=== PATIENT | female | born 1960 | race Caucasian/White ===

== ENCOUNTER 2019-08-28 13:15 | Emergency (ER) | payer OTHER, SELFPAY ==
--- NOTE | ~2019-08-28 | CT_ITS ---
EXAMINATION: CT cervical spine wo con DATE: 08/28/2019 14:21 INDICATION: Neck pain for 3 weeks TECHNIQUE: Computed tomography (CT) of the cervical spine was performed without intravenous contrast. Automated exposure control and iterative reconstruction technique were employed. Exam dose: 140.78 mGy-cm total exam DLP. COMPARISON: None FINDINGS: There is straightening of the cervical spine. There is fusion of the posterior elements at C2-3 bilaterally. There is degenerative change at the apophyseal joints, particularly on the right at C4-5 and C5-6. There is minimal anterolisthesis at C4-5. Cervical interspaces are relatively preserved. There is mild degenerative disc disease at C4-5. No fracture or dislocation or locked facet is evident. No prevertebral soft tissue swelling. IMPRESSION: Straightening Posterior fusion at C2-3 Mild degenerative disease and minimal anterolisthesis at C4-5 Reviewed, dictated and finalized at [facility]. Reviewed, dictated and finalized at location A. NEER TECHNICIAN
[2019-08-28 13:17] VITALS: BP 149/79; PULSE 92; RESP 19; TEMP 36.3; O2SAT 100
[2019-08-28] MEDS: ACETAMINOPHEN 500 MG TABLET 1000 MG PO (14:34)
[2019-08-28 15:04] VITALS: BP 132/80; PULSE 65; RESP 16; O2SAT 96
--- NOTE | 2019-08-28 15:36 | ED_ITS ---
HPI - Neck Pain/Injury General Chief Complaint: Neck Pain/Injury Stated Complaint: Neck Pain Time Seen by Provider: 08/28/19 13:25 Related Data Home Medications Medication Instructions Recorded Confirmed albuterol sulfate [Ventolin HFA] 1 inh INHALATION QID PRN 08/28/19 aspirin [Adult Low Dose Aspirin] 08/28/19 duloxetine [Cymbalta] 60 mg PO DAILY 08/28/19 fluticasone propionate [Flonase 1 spray INTRANASAL BID 08/28/19 Allergy Relief] Allergies Allergy/AdvReac Type Severity Reaction Status Date / Time No Known Allergies Allergy Verified 08/28/19 13:30 Course Vital Signs Vital signs: Vital Signs Temperature 97.3 F L 08/28/19 13:17 Pulse Rate 92 08/28/19 13:17 Respiratory Rate 19 08/28/19 13:17 Blood Pressure 149/79 H 08/28/19 13:17 Pulse Oximetry 100 08/28/19 13:17 Temperature 97.3 F L 08/28/19 13:17 Pulse Rate 65 08/28/19 15:04 Respiratory Rate 16 08/28/19 15:04 Blood Pressure 132/80 08/28/19 15:04 Pulse Oximetry 96 08/28/19 15:04 Discharge Plan Discharge Clinical Impression: Acute neck pain Patient Disposition: Home, Self-Care Condition: Stable Instructions: Muscle Spasm (ED) Additional Instructions: Return to the emergency department if you experience fever, vision changes, vomiting, sudden onset numbness or weakness, or any other symptoms that are concerning to you Rest. Heat to the area. Take steroid taper as prescribed. Xdsv-pyo-atxaxat pain medication as needed. Muscle relaxer as needed. Do not drive if you are going to take this, as it can make you sleepy Follow up with your primary care doctor Prescriptions: New cyclobenzaprine 10 mg tablet 10 mg PO TID PRN (Reason: muscle spasm) Qty: 14 RF: 0 methylprednisolone [Medrol (Rajinder)] 4 mg tablets,dose pack See Rx Instructions .ROUTE .COMPLEX Qty: 21 RF: 0 No Action aspirin [Adult Low Dose Aspirin] 81 mg Tablet,Delayed Release (Dr/Ec) RF: 0 duloxetine [Cymbalta] 60 mg Capsule,Delayed Release(Dr/Ec) 60 mg PO DAILY RF: 0 fluticasone propionate [Flonase Allergy Relief] 50 mcg/actuation [place],Suspension 1 spray INTRANASAL BID RF: 0 albuterol sulfate [Ventolin HFA] 90 mcg/actuation Hfa Aerosol Inhaler 1 inh INHALATION QID PRN (Reason: Allergic Symptoms) RF: 0 Follow-up/Referrals: PHYSICIAN,COMPUTER AIDED DESIGN TECHNICIAN [Primary Care Provider] - Time of Disposition: 15:36
== END 2019-08-28 15:45 | disposition home or self-care (01) ==
PROVIDERS: Emergency Provider Emergency Medicine
DX: M54.2 Cervicalgia (principal); J45.909 Unspecified asthma, uncomplicated; J32.9 Chronic sinusitis, unspecified
CPT/HCPCS: 72125; 96372; 99284; A9270; J3360

== ENCOUNTER 2019-10-28 08:00 | Emergency (ER) | payer OTHER, SELFPAY ==
[2019-10-28] VITALS (10 sets, daily range): BP systolic 113–166; BP diastolic 75–105; PULSE 56–94; RESP 10–22; TEMP 36.3; O2SAT 98–100
--- NOTE | ~2019-10-28 | CT_ITS ---
EXAMINATION: CT abdomen pelvis w con EXAM DATE: 10/28/2019 09:05 INDICATION: Chronic abdominal pain, nausea and constipation. TECHNIQUE: Spiral CT of the abdomen and pelvis was performed following intravenous injection of 100 m L Omnipaque 350. Axial, coronal and sagittal images were reviewed. The dose-length product (DLP) fo r this examination was 293.67 mGy-cm. The exposure was tailored according to patient size (auto mA e xposure control), and iterative reconstruction (ASIR) was used as additional dose reduction technique . There is no prior study for comparison. FINDINGS: The liver, spleen, adrenal glands and pancreas are unremarkable. Patient has had cholecyst ectomy. Some biliary duct dilation which is common finding following cholecystectomy. Portal and sp lenic veins are patent. Kidneys enhance symmetrically. There is no hydronephrosis. The uterus is not identified and has likely been surgically resected. The bladder is unremarkable. There is no re troperitoneal or pelvic lymphadenopathy. The appendix is not positively visualized. There is no pericecal inflammatory change to suggest appe ndicitis. The stomach and small bowel are unremarkable. There is expected amount of colonic stool. There is mild scattered colonic diverticulosis. There is no adjacent inflammatory change to suggest diverticulitis. No free intraperitoneal gas. The heart is normal in size. There are no pericardi al or pleural effusions. The lung bases are unremarkable. There are no osteoblastic or osteolytic l esions identified. IMPRESSION: 1. Scattered colonic diverticulosis. Reviewed, dictated and finalized at location B.
--- NOTE | ~2019-10-28 | XR_ITS ---
EXAMINATION: XR chest 2V EXAM DATE: 10/28/2019 09:10 INDICATION: Mid to upper abdominal pain. TECHNIQUE: Frontal and lateral projections of the chest obtained and reviewed. There is no prior terry dy for comparison. FINDINGS: The lungs are clear. There are no pleural effusions. The cardiomediastinal silhouette is within normal limits. There is no pneumothorax suspected. The bones and soft tissues are unremarkab le. IMPRESSION: Normal chest x-ray exam. Reviewed, dictated and finalized at location B. IMPRESSION: Normal chest x-ray exam.
--- NOTE | 2019-10-28 08:24 | ECG_ITS ---
Measurements Intervals [place] Rate: 60 P: 8 NM: 144 QRS: 6 QRSD: 97 T: 55 QT: 449 QTc: 450 Interpretive Statements SINUS RHYTHM LOW QRS VOLTAGE IN LIMB LEADS BORDERLINE ST-T WAVE ABNORMALITY- LATERAL LEADS BASELINE WANDER- I, II, III, AVR, V6 BORDERLINE ECG Electronically Signed On 10-28-2019 9:18:14 CDT by Jah Light D.O.
--- NOTE | 2019-10-28 08:27 | ED.ABDPAIN ---
HPI - Abdominal Pain General Chief Complaint: Abdominal Pain Stated Complaint: abd pain Time Seen by Provider: 10/28/19 08:04 Source: patient Mode of arrival: ambulatory Limitations: no limitations History of Present Illness HPI narrative: Patient is a 59-year-old female who presents for evaluation of abdominal pain. Patient has had a 2-year history of intermittent abdominal pain, much worse over the past 2 weeks. Pain is located throughout the abdomen. Patient reports the pain is severe in nature, patient feels nauseated, no vomiting. No fever. She reports she has been very fatigued. She denies any weight loss. She reports some mild abdominal distention. She reports radiation of the pain to her back. No lower extremity pain or numbness. No flank pain. No cough or shortness of breath. Patient was recently seen by her primary care provider yesterday, ordered outpatient lab testing, but patient states she does not feel well enough to go through with that treatment plan. Patient was also set up to see a still pump operator today. She otherwise has been seen at [facility] where for her physicians, but states she did not want to be seen by people that she knows. Patient reports constipation, denies diarrhea. Related Data Home Medications Medication Instructions Recorded Confirmed albuterol sulfate [Ventolin HFA] 1 inh INHALATION QID PRN 08/28/19 aspirin [Adult Low Dose Aspirin] 08/28/19 duloxetine [Cymbalta] 60 mg PO DAILY 08/28/19 fluticasone propionate [Flonase 1 spray INTRANASAL BID 08/28/19 Allergy Relief] Allergies Allergy/AdvReac Type Severity Reaction Status Date / Time No Known Allergies Allergy Verified 08/28/19 13:30 Review of Systems Review of Systems: Narrative: CONSTITUTIONAL: Denies fever, chills, or sweats. EYES: Denies visual changes, redness, or discharge. ENT: Denies rhinorrhea, congestion, sore throat, or otalgia. CARDIOVASCULAR: Reports intermittent chest pain, denies current chest pain RESPIRATORY: Denies cough or dyspnea. GASTROINTESTINAL: Reports abdominal pain, nausea, denies diarrhea GENITOURINARY: Denies dysuria or hematuria. SKIN: Denies rash or itching. MUSCULOSKELETAL: Reports middle back pain, denies joint pain, or myalgia. NEUROLOGIC: Denies headache, numbness, or weakness. Reports fatigue. PSYCHIATRIC: Denies anxiety or depression PMFSH Social History Social History Gender identity (if verbalized by the patient): Female Exam Narrative: Exam Narrative: GENERAL: Awake, alert, conversant HEAD: Normocephalic, atraumatic. EYES: PERRLA and EOMI. ENT: Nares clear, no rhinorrhea or epistaxis. Mucous membranes moist. NECK: Supple. CHEST: No respiratory distress, breathing even and non labored HEART: Regular rate, sinus rhythm ABDOMEN:Non distended,pt with reproducible left lower quadrant abdomen, no rebound, no guarding EXTREMITIES: Normal range of motion. No edema. SKIN: Warm, dry, no rash. NEURO:No focal deficits. Alert and oriented x3. Finger to nose intact bilaterally. EOMs intact without nystagmus. No facial droop/asymmetry noted bilaterally. Grimace intact. Intact sensation in face. Hearing intact bilaterally. Shoulder shrug intact. Strength 5/5 bilateral upper extremities. Strength 5/5 bilateral lower extremities. Pt is ambulatory with a narrow based, steady gait, no ataxia. Psych: Anxious appearing, tearful Course Vital Signs Vital signs: Vital Signs Temperature 36.3 C L 10/28/19 08:13 Pulse Rate 83 10/28/19 08:13 Respiratory Rate 14 10/28/19 08:13 Blood Pressure 147/95 H 10/28/19 08:13 Pulse Oximetry 100 10/28/19 08:13 Temperature 36.3 C L 10/28/19 08:13 Pulse Rate 76 10/28/19 11:59 Respiratory Rate 18 10/28/19 11:59 Blood Pressure 166/89 H 10/28/19 11:59 Pulse Oximetry 99 10/28/19 11:59 MDM - Abdominal Pain MDM Narrative Medical decision making narrative: Patient presented for evaluation of chronic abdominal pain. At
[2019-10-28] MEDS: SODIUM CHLORIDE 0.9% IV 1,000 ML 999 ML IV CONT (08:42)
[2019-10-28] MEDS: MORPHINE SULFATE 4 MG/ML INJ IV PUSH (08:43)
[2019-10-28] MEDS: FAMOTIDINE 20 MG/2 ML VIAL IV PUSH (08:44)
[2019-10-28] MEDS: ONDANSETRON INJ 4 MG/2 ML VIAL IV PUSH (08:44)
[2019-10-28 08:48] LABS: Basophils Absolute Auto 0.1 K/mm3 (0.0-0.1); Basophils Percent Auto 1.6 % (0.2-1.2); Eosinophils Absolute Auto 0.4 K/mm3 (0-0.3); Eosinophils Percent Auto 5.4 % (0-4.4); Hemoglobin 12.1 g/dL (12.0-15.0); Immature Granulocyte Absolute 0.01 K/mm3 (0.00-0.031); Immature Granulocyte Percent A 0.2 % (0-0.5); Lymphocytes Absolute Auto 1.86 K/mm3 (0.9-3.2); Lymphocytes Percent Auto 28.9 % (18.3-44.2); Mean Corpuscular HGB Conc 32.7 g/dl (32-36); Mean Corpuscular Hemoglobin 30.1 pg (26-34); Mean Platelet Volume 10.1 fl (7.4-10.4); Monocytes Absolute Auto 0.6 K/mm3 (0.1-0.6); Monocytes Percent Auto 9.3 % (2.6-8.5); Neutrophils Absolute Auto 3.5 K/mm3 (1.3-6.7); Neutrophils Percent Auto 54.6 % (45.5-73.1); Platelet Count Result 274 k/mm3 (150-375); Red Blood Count 4.02 M/mm3 (4.2-5.4); Red Cell Distribution Width 13.2 % (11.5-14.5); White Blood Count 6.4 K/mm3 (4.5-10.0)
[2019-10-28 08:52] LABS: Add Urine Microscopic? NO; Appearance Urine Clear (Clear); Bacteria Urine Trace /hpf; Bilirubin Urine Negative (Negative); Blood Urine Negative (Negative); Color Urine Yellow (Yellow); Glucose Urine UA Negative (Negative); Ketones Urine Negative (Negative); Leukocyte Esterase Ur Negative LEU/UL (Negative); Mucus Urine Rare /lpf; Nitrate Urine Negative (Negative); Protein Urine Negative (Negative); RBC Urine 0-2 /hpf (0-2); Specific Grav Ur 1.017 (1.001-1.035); Squamous Epithelial Cell Urine Rare /hpf (Few); Urobilinogen Urine Negative mg/dL (<2.0); WBC Urine 0-3 /hpf
[2019-10-28 08:57] LABS: INR 0.9; Prothrombin Time 12.2 Seconds (11.1-14.7)
[2019-10-28 08:58] LABS: Partial Thromboplastin Time 26.6 SECONDS (22.3-36.8)
[2019-10-28 08:59] LABS: Estimated CRCL calculation 68 ml/min; Estimated Glomerular Filt Rate > 60
[2019-10-28 10:00] LABS: Troponin I < 0.012 ng/mL (0.000-0.034)
[2019-10-28 11:40] LABS: Alanine Aminotransferase 21 U/L (4-35); Albumin Level 4.1 g/dL (3.5-5.1); Alkaline Phosphatase 73 U/L (38-126); Aspartate Amino Transferase 27 U/L (14-36); Bilirubin,Total 1.8 mg/dL (0.2-1.3); Blood Urea Nitrogen 15 mg/dL (7-17); Calcium 8.6 mg/dL (8.4-10.2); Carbon Dioxide 27 mmol/L (22-30); Chloride 104 mmol/L (98-107); Estimated CRCL calculation 89 ml/min; Estimated Glomerular Filt Rate > 60; Glucose 97 mg/dL (65-105); Potassium 4.5 mmol/L (3.4-5.0); Sodium 138 mmol/L (137-145)
== END 2019-10-28 12:15 | disposition home or self-care (01) ==
PROVIDERS: Emergency Provider Emergency Medicine; PCP Internal Medicine
DX: R07.89 Other chest pain (principal); R10.13 Epigastric pain; R94.31 Abnormal electrocardiogram [ECG] [EKG]
CPT/HCPCS: 36415; 71046; 74177; 80053; 81003; 81025; 84443; 84484; 85025; 85610; 85730; 93005; 96361; 96374; 96375; 99284; J0131; J2270; J2405; J7030; Q9967

== ENCOUNTER 2020-07-26 13:25 | Outpatient (CLI) | payer MEDICARE, MEDICAID, SELFPAY ==
--- NOTE | ~2020-07-26 | CT_ITS ---
EXAMINATION: CTA brain DATE: 07/26/2020 14:27 INDICATION: Dizziness. Paresthesias. TECHNIQUE: Computed tomographic angiography (CTA) of the head was performed without and with 100 mL O mnipaque-350 intravenous contrast. Automated exposure control and iterative reconstruction technique were employed. The dose-length product was 967.02 mGy-cm. Maximum intensity projection 3D reconstruc tions were created. Volume-rendered 3D reconstructions of the intracranial arteries were created by isaura juarez technologist on a separate workstation. COMPARISON: None. FINDINGS: There is no intracranial hemorrhage, acute infarction, or abnormal intracranial mass lesion . The ventricles are normal in size. The mastoid air cells are normal. The orbits are normal. The par anasal sinuses are clear. The vertebral arteries are codominant. There is no significant stenosis of basilar artery or the posterior cerebral arteries. There is no significant stenosis of the intracrani al internal carotid arteries or anterior or middle cerebral arteries. Anterior communicating artery a nd the posterior communicating arteries are normal. There is no aneurysm. IMPRESSION: 1. Normal brain. No aneurysm or significant intracranial arterial stenosis. Reviewed, dictated and finalized at location A. ODUCTS SUPERVISOR
--- NOTE | ~2020-07-26 | US_ITS ---
EXAMINATION: US carotid duplex BI DATE: 07/26/2020 14:02 INDICATION: Dizziness. TECHNIQUE: Grayscale, color Doppler, and pulsed Doppler images of the cervical carotid arteries were obtained. The degree of vessel stenosis is placed in one of the following categories: normal, <50%, 5 0-69%, >=70% but less than near-occlusion, near-occlusion, or total occlusion. Note that percent sten osis relative to normal distal artery lumen diameter is indirectly measured from velocity measurement s as described by Orville, et al. Radiology 2003; 229:340-346. COMPARISON: None. FINDINGS: RIGHT: The right common carotid artery (CCA) peak systolic velocity (PSV) is 82 cm/s. The right internal car otid artery (ICA) PSV is 67 cm/s. The right ICA end-diastolic velocity (EDV) is 23 cm/s. The right IC A/CCA PSV ratio is 0.8. Grayscale and color Doppler images yield an estimate of <50% diameter reducti on from plaque in the ICA. There is antegrade flow in the right vertebral artery. LEFT: The left CCA PSV is 70 cm/s. The left ICA PSV is 72 cm/s. The left ICA EDV is 22 cm/s. The left ICA/C CA PSV ratio is 1.0. Grayscale and color Doppler images yield an estimate of <50% diameter reduction from plaque in the ICA. There is antegrade flow in the left vertebral artery. IMPRESSION: 1. <50% stenosis in the right internal carotid artery. 2. <50% stenosis in the left internal carotid artery. Reviewed, dictated and finalized at location A. THESIOLOGY PHYSICIAN ASSISTANT
== END 2020-07-26 13:26 | disposition home or self-care (01) ==
PROVIDERS: PCP Nurse Practitioner; Visit Provider Nurse Practitioner
DX: R42 Dizziness and giddiness (principal); R20.2 Paresthesia of skin; I65.23 Occlusion and stenosis of bilateral carotid arteries
CPT/HCPCS: 70496; 93880; Q9967

== ENCOUNTER → 2020-11-08 06:53 | Outpatient (CLI) | payer MEDICARE, MEDICAID, SELFPAY ==
--- NOTE | ~2020-11-08 | MR_ITS ---
EXAMINATION: MR lumbar spine wo con DATE: 11/08/2020 07:28 INDICATION: Low back pain. Lumbar radiculopathy. TECHNIQUE: Magnetic resonance imaging (MRI) of the lumbar spine was performed without intravenous con trast. Sequences included sagittal T2-weighted FSE, sagittal T2-weighted FS FSE, sagittal T1-weighted FSE, and axial T2-weighted FSE. COMPARISON: None FINDINGS: Bone alignment is normal. Vertebral body heights are normal. There is mildly decreased disc height at L2-L3, L3-L4, and L4-L5. The distal spinal cord signal intensity is normal. The conus medu llaris is at L1. The following disc levels are specifically discussed: L1-L2: The disc does not extend beyond the endplate margin. There is mild bilateral facet joint osteo arthritis. There is no neural foraminal stenosis. There is no central canal stenosis. L2-L3: The disc is bulging. There is severe right and moderate left facet joint osteoarthritis. There is mild bilateral neural foraminal stenosis. There is mild central canal stenosis. L3-L4: The disc is bulging. There is moderate bilateral facet joint osteoarthritis. There is mild pat ateral neural foraminal stenosis. There is mild central canal stenosis. L4-L5: The disc is bulging. There is severe right and moderate left facet joint osteoarthritis. There is moderate right and mild left neural foraminal stenosis. There is mild central canal stenosis. L5-S1: The disc is bulging. There is severe bilateral facet joint osteoarthritis. There is mild bilat eral neural foraminal stenosis. There is no central canal stenosis. IMPRESSION: 1. Mild lumbar spondylosis. Reviewed, dictated and finalized at location B. IMPRESSION: 1. Mild lumbar spondylosis.
== END ==
PROVIDERS: PCP Internal Medicine; Visit Provider Anesthesiology Pain Medicine
DX: M47.26 Other spondylosis with radiculopathy, lumbar region (principal)
CPT/HCPCS: 72148

== ENCOUNTER → 2021-07-09 03:15 | Outpatient (CLI) | payer OTHER, SELFPAY ==
[2021-07-09 19:58] LABS: SARS-CoV-2 RNA PCR Negative (Negative)
== END ==
PROVIDERS: PCP Internal Medicine; Visit Provider Internal Medicine Gastroenterology
DX: Z01.812 Encounter for preprocedural laboratory examination (principal); Z20.822 Contact with and (suspected) exposure to COVID-19
CPT/HCPCS: C9803; U0003; U0005

== ENCOUNTER 2021-07-12 01:56 | Day surgery (SDC) | payer OTHER, SELFPAY ==
[2021-06-28 14:58] VITALS: BMI 23.3
--- NOTE | 2021-07-11 20:18 | PM.HPGS ---
History of Present Illness History of Present Illness Consent: Risks, benefits, and alternatives have been discussed and questions answered. Patient agrees to proceed with procedure. Chief complaint: GERD, epigastric pain Narrative: Nova Tamez is a 60 year old female with epigastric pain . She states that a few years ago she had an EGD with dilatation for difficulty swallowing. This has not been an issue lately. She has been on medicine for reflux for 20 years or more than just recently went back on 1 after having been off of it for a while. Her issue now is that she gets discomfort in her upper abdomen, mostly in the left upper quadrant when she wears her back brace which fastens across the abdomen, or if she leans into her left side with her elbow. It it seems to states sore all the time but those to maneuvers exacerbate the discomfort. She denies vomiting. She is frequently nauseated Review of Systems Review of Systems: All systems reviewed & are unremarkable except as noted in HPI and below PMFSH Past Medical History Medical History Bronchitis HTN (hypertension) Surgical History Surgical History H/O: hysterectomy History of cholecystectomy Hx of tonsillectomy Social History Social History Smoking status: Never smoker Alcohol intake: former Substance use: former Substance use type: marijuana Living arrangements: alone Gender identity (if verbalized by the patient): Female Spiritual care concerns: No Meds Home Medications and Allergies Home Medications Medication Instructions Recorded Confirmed Type albuterol sulfate [Ventolin HFA] 1 inh INHALATION QID PRN 08/28/19 06/28/21 History fluticasone propionate [Flonase 1 spray INTRANASAL BID 08/28/19 06/28/21 History Allergy Relief] acetaminophen 500 mg PO Q6H PRN #30 cap 10/28/19 06/28/21 Rx dicyclomine 10 mg PO BID 10 Days #20 cap 10/28/19 06/28/21 Rx ondansetron HCl [Zofran] 4 mg PO Q8H #14 tablet 10/28/19 06/28/21 Rx Allergies Allergy/AdvReac Type Severity Reaction Status Date / Time No Known Allergies Allergy Verified 06/28/21 14:55 Exam Resp: Auscultation: clear to auscultation bilaterally Cardio: Rate: regular rate Rhythm: regular rhythm GI: GI Palp: Yes Soft to palpation and No Tenderness to palpation present (GI) Assessment and Plan Assessment and plan (1) Epigastric pain: Code(s): R10.13 - Epigastric pain Status: Acute Assessment and Plan: EGD with possible biopsy or dilatation or cautery.
[2021-07-12 09:52] VITALS: BP 149/76; PULSE 75; RESP 16; TEMP 36.2; O2SAT 100
[2021-07-12] MEDS: LACTATED RINGERS 1,000 ML 150 ML IV CONT (10:02)
--- NOTE | 2021-07-12 10:27 | P.PNAN_ITS ---
Anes - Initial Pre Proc Eval Procedure: Operation Date: 07/12/21 11:30 Proposed Procedures p Esophagogastroduodenoscopy - Milton Langford MD Date/Time: 07/12/21 10:27 Surgeon: Milton Langford MD Pre Op Diagnosis: GERD, epigastric pain Patient Data Age: 60 Gender: F Height: 20.12 m Weight: 63.63 kg Last Vital Signs Temp 36.2 C L 07/12/21 09:52 Pulse 75 07/12/21 09:52 Resp 16 07/12/21 09:52 BP 149/76 H 07/12/21 09:52 Pulse Ox 100 07/12/21 09:52 Allergies Allergy/AdvReac Type Severity Reaction Status Date / Time No Known Allergies Allergy Verified 06/28/21 14:55 Home Medications Medication Instructions Recorded Confirmed Type albuterol sulfate [Ventolin HFA] 1 inh INHALATION QID PRN 08/28/19 06/28/21 History fluticasone propionate [Flonase 1 spray INTRANASAL BID 08/28/19 06/28/21 History Allergy Relief] acetaminophen 500 mg PO Q6H PRN #30 cap 10/28/19 06/28/21 Rx dicyclomine 10 mg PO BID 10 Days #20 cap 10/28/19 06/28/21 Rx ondansetron HCl [Zofran] 4 mg PO Q8H #14 tablet 10/28/19 06/28/21 Rx Patient hx anesthesia problems: none Family hx anesthesia problems: none Results Review: All pre-operative results and documents have been reviewed as part of the pre-operative evaluation. [facility] Past Medical History Medical History (Updated 07/12/21 @ 10:27 by Yaniv Adame MD) Bronchitis HTN (hypertension) Surgical History Surgical History (Updated 07/12/21 @ 10:30 by Yaniv Adame MD) H/O: hysterectomy History of cholecystectomy Hx of tonsillectomy Social History Social History Smoking status: Never smoker Alcohol intake: former Substance use: former Substance use type: marijuana Living arrangements: alone Gender identity (if verbalized by the patient): Female Spiritual care concerns: No Anes - Eval Final PreProcedure Day of Procedure 07/12/21 10:27 Patient weight: normal Heart: regular rate and rhythm Lungs: clear to auscultation Airway: Mallampati scale class II Neurological: alert and oriented Last oral intake: >/= 8 hours ASA classification: II Emergent: no Anesthetic plan: proceed Anesthesia type and monitoring: general GIVS and standard monitoring Results Review: All pre-operative results and documents have been reviewed as part of the pre-operative evaluation. Informed Consent: The patient's anesthetic plan and its attendant risks and benefits were discussed with the patient/family/POA. Questions were solicited and answers provided to the satisfaction of the patient/family/POA.
[2021-07-12 11:02] VITALS: BP 125/76; PULSE 62; RESP 18; O2SAT 100
[2021-07-12 11:12] VITALS: BP 136/81; PULSE 60; RESP 12; O2SAT 100
[2021-07-12 11:22] VITALS: BP 150/84; PULSE 63; RESP 21; O2SAT 100
== END 2021-07-12 11:23 | disposition home or self-care (01) ==
PROVIDERS: PCP Internal Medicine; Visit Provider Internal Medicine Gastroenterology
PROC: 0DJ08ZZ Inspection of Upper Intestinal Tract, Via Natural or Artificial Opening Endoscopic (ICD-10-PCS; CPT 43235; principal; 2021-07-12 11:30)
DX: R10.13 Epigastric pain (principal); K21.9 Gastro-esophageal reflux disease without esophagitis; K29.70 Gastritis, unspecified, without bleeding; I10 Essential (primary) hypertension; Z90.49 Acquired absence of other specified parts of digestive tract
CPT/HCPCS: 43239; 87081; J2001; J2704; J7120

== ENCOUNTER 2021-10-23 13:10 | Outpatient (CLI) | payer OTHER, SELFPAY ==
--- NOTE | ~2021-10-23 | CT_ITS ---
EXAMINATION: CT chest abdomen pelvis w con EXAM DATE: 10/23/2021 13:53 INDICATION: Chest pain, left upper quadrant pain. TECHNIQUE: Spiral CT of the chest, abdomen and pelvis was performed following intravenous injection o f 100 mL Omnipaque 350. Axial, coronal and sagittal images chest, abdomen and pelvis were reviewed. Coronal maximum intensity pixel images of chest reviewed. The dose-length product (DLP) for this ex amination was 278.42 mGy-cm. The exposure was tailored according to patient size (auto mA exposure c ontrol), and iterative reconstruction (ASIR) was used as additional dose reduction technique. Compari son is made to prior examination from 10/28/2019. FINDINGS: CHEST: Some scattered punctate granulomata unchanged there are no suspicious pulmonary nodules. The re are no pleural or pericardial effusions. Tracheobronchial tree is patent. There is no mediasti nal, hilar or axillary lymphadenopathy. There is no pneumothorax. Heart normal in size. No evid ence of coronary arterial calcification. ABDOMEN PELVIS: The liver, spleen, adrenal glands and pancreas are unremarkable. There is mild bilia ry duct dilation which is common following cholecystectomy. Portal and splenic veins are patent. Ki dneys enhance symmetrically. There is no hydronephrosis. The uterus is not identified and has like ly been surgically resected. The bladder is unremarkable. There is no retroperitoneal or pelvic lym phadenopathy. The appendix is not positively visualized. There is no pericecal inflammatory change to suggest appe ndicitis. The stomach and small bowel are unremarkable. There is expected amount of colonic stool. There is mild scattered colonic diverticulosis. There is no adjacent inflammatory change to suggest diverticulitis. No free intraperitoneal gas. There are no osteoblastic or osteolytic lesions iden tified. There is no significant interval change. IMPRESSION: 1. Mild scattered colonic diverticulosis. 2. Mild biliary dilation likely from cholecystectomy status. 3. No acute chest, abdomen or pelvis findings. Reviewed, dictated and finalized at location A.
== END 2021-10-23 13:11 | disposition home or self-care (01) ==
PROVIDERS: PCP Internal Medicine; Visit Provider Nurse Practitioner
DX: R07.89 Other chest pain (principal); R00.2 Palpitations; R53.1 Weakness; R53.83 Other fatigue; R10.12 Left upper quadrant pain; R63.0 Anorexia; K57.30 Diverticulosis of large intestine without perforation or abscess without bleeding
CPT/HCPCS: 71260; 74177; Q9967

== ENCOUNTER 2023-06-23 16:16 | Outpatient (CLI) | payer OTHER, SELFPAY ==
--- NOTE | ~2023-06-23 | CT_ITS ---
EXAMINATION: CT abdomen pelvis w con DATE: 06/23/2023 16:52 INDICATION: Abdominal pain TECHNIQUE: Computed tomography (CT) of the abdomen and pelvis was performed with 100 mL Omnipaque-350 intravenous contrast. Automated exposure control and iterative reconstruction technique were employe d. The dose-length product was 319.53 mGy-cm. COMPARISON: 10/23/2021 FINDINGS: Lung bases are clear. Heart size is normal. No pericardial or pleural effusion. Gallbladder is not vi sualized and likely surgically absent. Focal hepatic steatosis at the ligamentum teres. No interval c hange in mild intra and extra hepatic biliary ductal dilation which is within normal limits post chol ecystectomy. Pancreas, spleen, bilateral adrenal glands and kidneys are normal. There are few diverti cula along the sigmoid colon without adjacent comparison to suggest diverticulitis. No abnormal bowel wall thickening or obstruction. The appendix is not visualized. No pericecal inflammatory change to suggest acute appendicitis. Bladder is normal. The uterus is not identified and has likely been surgi elina resected. No free intraperitoneal gas or fluid. No pathologically enlarged abdominal or pelvic lymphadenopathy. Mild lumbar spondylosis. IMPRESSION: 1. No acute intra-abdominal/pelvic process. 2. Mild sigmoid diverticulosis. 3. Stable mild intra and extra hepatic biliary ductal dilation which is within normal limits post cho lecystectomy. Reviewed, dictated and finalized at location A. Y NEEDLEWORKER IMPRESSION: 1. No acute intra-abdominal/pelvic process. 2. Mild sigmoid diverticulosis. 3. Stable mild intra and extra hepatic biliary ductal dilation which is within normal limits post cholecystectomy.
[2023-06-23 16:45] LABS: Estimated Glomerular Filt Rate > 60
== END 2023-06-23 16:17 | disposition home or self-care (01) ==
LOC: ANHIMG 16:20
PROVIDERS: PCP Internal Medicine; Visit Provider Nurse Practitioner
DX: R10.9 Unspecified abdominal pain (principal); K57.30 Diverticulosis of large intestine without perforation or abscess without bleeding
CPT/HCPCS: 74177; Q9967

== ENCOUNTER 2024-09-01 08:57 | Emergency (ER) | payer OTHER, SELFPAY ==
--- NOTE | ~2024-09-01 | CT_ITS ---
EXAMINATION: CT abdomen pelvis wo con DATE: 09/01/2024 10:20 INDICATION: Right lower quadrant abdominal pain and right flank pain. TECHNIQUE: Computed tomography (CT) of the abdomen and pelvis was performed without intravenous contr ast. Automated exposure control and iterative reconstruction technique were employed. The dose-length product was 294.80 mGy-cm. COMPARISON: 06/23/2023 FINDINGS: Lung bases are clear. Heart size is normal. Small pericardial effusion. Status post cholecystectomy. Liver, spleen, pancreas and bilateral adrenal glands are normal. 10 mm echogenic soft tissue density lesion at the lower pole the left kidney. Kidneys and ureters are otherwise normal with no urolithias is, hydroureteronephrosis or perinephric/ureteral stranding. There are few scattered clonic diverticu la without adjacent from trace stranding to suggest diverticulitis. No abnormal bowel wall thickening or obstruction. The appendix is not visualized. No pericecal inflammatory change to suggest acute ap pendicitis. Decompressed bladder is unremarkable. The uterus is not identified and has likely been garzon rgically resected. No free intraperitoneal gas or fluid. No pathologically enlarged abdominal or pelv ic lymphadenopathy. Mild lumbar spondylosis. IMPRESSION: 1. No acute intra-abdominal/pelvic process. 2. Small pericardial effusion. 3. 1 cm exophytic soft tissue density lesion at the lower pole the left kidney with low signal intens ity on prior T2-weighted imaging of the lower spine MR dated 11/08/2020 which favors a proteinaceous/h emorrhagic cyst although renal cell carcinoma. Could consider pre and postcontrast MRI for more defin itive determination. Reviewed, dictated and finalized at location A. ER GOODS INSPECTOR IMPRESSION: 1. No acute intra-abdominal/pelvic process. 2. Small pericardial effusion. 3. 1 cm exophytic soft tissue density lesion at the lower pole the left kidney with low signal intensity on prior T2-weighted imaging of the lower spine MR da danii 11/08/2020 which favors a proteinaceous/hemorrhagic cyst although renal cell carcinoma. Could consider pre and postcontrast MRI for more definitive determi nation.
--- OUTSIDE RECORDS SUMMARY | 2024-09-01 09:32 | XMS_ITS | Data Portability ---
Author Organization [facility] KYLEIris Address [address] [place] [address] Care Team Providers Care Signals Collector/Analyst Name Role Phone BIANCA VANEGAS Astronomy Teacher Assessment No assessment recorded. Plan of Treatment Reminders Order Date Submit Date Provider Last Modified By Organization Details Last Modified Time Details Appointments None recorded. Lab SARS CoV 2 RNA (COVID-19 ), QL, industrial waste inspector-PCR, respirato ry specimen 2019 [place] [facility], 2022 Margarito Galan, [address], [address], 0 18:16:47 Referral physical therapist referral - Please call patient to schedule appt. Thank you 2019 [facility], [address] [place] [address], [address], 1 12:09:37 Procedures nerve conductio n study/EMG , lower extremity (PROC) 2019 [facility] Scheduling, [address] [place], [address], 0 15:02:29 nerve conductio n study/EMG , upper extremity (PROC) 2019 020 [facility] Scheduling, [address] [place], [address], 0 15:02:36 nerve conductio n study/EMG , upper extremity (PROC) 2019 [place] [facility], [address], [address], [place], [address], 0 17:10:39 Surgeries None recorded. Imaging None recorded. Medication Orders Calcium 600 + D(3) 600 mg-10 mcg (400 unit) tablet 2019 [id number], [address], [place], [id number], 0 16:00:22 nortripty line 25 mg capsule 2019 [facility] #[id number], [address], [place], [id number], 0 13:09:16 omeprazol e 40 mg capsule,d elayed release 2019 [facility] #[id number], [address], [place], [id number], 0 13:40:24 nortripty line [address] [facility] #[id number], [address], [place], [id number], 0 15:53:49 Patient TargetsNo targets recorded. Patient Instructions Encounter Date Encounter Id Patient Instructions Last Modified By Organization Details Last Modified Time 03/01/2020 [id number] things to do i f you've been exposed to covid-19 [facility] Not available 03/01/2020 13:39:55 Reason for Referral Physical Therapist Referral for Chronic neck pain Please call patient to schedule appt. Thank you Referring Physician: Yakov Mondragon, Internal Medicine, Encounter Date: 04/24/2020 Results Created Date Observation Date Name Description Value Unit Range Abnormal Flag Note LastModifiedBy Organization Detail LastModifiedTime 02/07/20 20 02/07/2020 MAMMO , scree timothy, bilat eral No observ ation record ed. [facility] (Imaging) [address] [place], [address], 02/11/2020 12:04:18 02/08/20 20 02/08/2020 DEXA No observ ation record ed. [facility] ([facility]) [address] [place], [address], 02/15/2020 12:48:18 02/16/20 20 02/16/2020 CT, cervi ana maria spine , w/o contr ast No observ ation record ed. [facility] (Imaging) [address] [place], [address], 02/17/2020 10:30:30 05/17/20 20 05/17/2020 MRI, cervi ana maria spine , w/o contr ast No observ ation record ed. [facility] [address] [place], [address], 06/06/2020 18:17:44 Result Notes None recorded. Problems Name Problem SNOMED Code Status Onset Date Resolution Date Notes Provider Name and Address Organization Details Recorded Time Takotsubo cardiomyopathy 181678704 Active 2019 Jose Easton MD Attn: Paco coronado,[address] [facility], [place], [address], [facility] 0 12:47:48 Anxiety 71522857 Active 2019 Jose Easton MD Attn: Paco coronado,[address] [facility], [place], [address], [place] - [facility] 0 12:47:50 Acid reflux 265216749 Active 2019 Jose Easton MD Attn: Paco coronado,[address] [facility], [place], [address], [place] [facility] 0 13:24:53 History of cholecystectom y 612266232 Active 2019 Jose Easton MD Attn: Paco g,[address] [facility], [place], [address], [place] [facility] 0 13:25:20 History of total hysterectomy 343805591 Active 2019 Jose Easton MD Attn: Caneloveronica g,[address] [facility], [place], [address], [place] [facility] 0 13:25:21 Diverticulosis of colon without diverticulitis 466733275 Active 2019 Jose Easton MD Attn: Caneloveronica g,[address] [facility], [place], [address], [place] [facility] 0 14:52:48 Arthritis 6600508 Active 2019 Jose Ronda null, [place] [facility] 0 16:06:33 Irritable bowel syndrome 22419889 Active 2019 [place] Ronda [place] [facility] 0 16:29:39 Osteopenia 233546916 Active 2019 [place] Ronda [place] [facility] 0 18:31:10 Cervical radiculopathy 37491090 Active 2019 Frank Courtney LPN null, [place] - [facility] 0 14:58:56 Problem Notes None recorded. Procedures Surgical History Date Name Laterality Status Provider Name and Address Organization Details Recorded Time 07/21/19 19 Most Recent Mammogram completed BENITO Braxton - [facility] 01/25/2020 15:59:49 07/21/19 05 Date of Last Pap Smear completed BENITO Braxton - [facility] 01/25/2020 15:59:04 07/21/19 03 Total hysterectomy completed Tyler Lovelace MA [place] - [facility] 09/01/2019 11:52:47 07/21/18 99 Cholecystectomy completed BENITO Flowers - [facility] 09/01/2019 11:53:22 colposuspension completed Jose Easton MD Attn: Accounting, [address] [facility], [place], [address], [place] [facility] 10/27/2019 12:24:38 Imaging Results Imaging Date Name Status LastModified by Organiz ation Details LastModified Time 02/07/2020 MAMMO, screening, bilateral completed [facility] (Imaging) [address] [place], [address], 02/11/2020 12:04:18 02/08/2020 DEXA completed [facility] (Imaging) [address] [place], [address], 02/15/2020 12:48:18 02/16/2020 CT, cervical spine, w/o contrast completed [facility] (Imaging) [address] [place], [address], 02/17/2020 10:30:30 05/17/2020 MRI, cervical spine, w/o contrast completed [facility] [address] [place], [address], 06/06/2020 18:17:44 Procedure Notes None recorded. Medical Equipment None Reported. Allergies Allergen ID Allergen Name Allergen Category Reaction Reaction Severity Criticality Documentation Date Start Date Code Code System Note Provider Name and Address Organization Details Recorded Time 375072 gabapenti n medicatio n Not available Not available Not available 02/23/2020 30494 RxNorm Not Available Not Available Not Available Medications Name Sig Start Date Stop Date Status Note LastModified by Organization Details LastModified Time multivitami n tablet TAKE 1 TABLET BY MOUTH EVERY DAY 2020 active Not Available Not Available Not Avai lable cyclobenzap rine 10 mg tablet active Not Available Not Available Not Available amoxicillin 500 mg capsule 09/01 completed Not Available Not Available Not Available prednisone 10 mg tablet 01/24 completed Not Available Not Available Not Available ondansetron HCl 4 mg tablet 12/02 completed Not Available Not Available Not Available prednisone 20 mg tablet 09/01 completed Not Available Not Available Not Available alendronate 70 mg tablet Take 1 tablet every week by oral route. active Not Available Not Available No t Available ciprofloxac in 500 mg tablet 09/01 completed Not Available Not Available Not Available hydrocodone 10 mg-acetamin ophen 325 mg tablet 09/01 completed Not Available Not Available Not Available omeprazole 40 mg capsule,del ayed release Take 1 capsule every day by oral route as directed for 30 days. active Not Available Not Available No t Available acetaminoph en 500 mg tablet 12/02 completed Not Available Not Available Not Available triamcinolo ne acetonide 0.1 % topical cream 12/02 completed Not Available Not Available Not Available nortriptyli ne 25 mg capsule Take 1 capsule 3 times a day by oral route as needed for 30 days. 2019 active Not Available Not Available Not Avai lable meloxicam 7.5 mg tablet Take 1 tablet every day by oral route after meals for 30 days. active Not Available Not Available No t Available calcium 600 mg (as calcium carbonate 1,500 mg) tablet 10/26 completed Not Available Not Available Not Available amoxicillin 875 mg tablet 09/01 completed Not Available Not Available Not Available dicyclomine 20 mg tablet active Not Available Not Available Not Available triamcinolo ne acetonide 0.1 % topical ointment 12/02 completed Not Available Not Available Not Available gabapentin 300 mg capsule Take 2 capsules 3 times a day by oral route as directed for 30 days. 02/22 completed Not Available Not Available Not Available omeprazole 20 mg capsule,del ayed release Take 1 capsule twice a day by oral route before meals for 30 days. 11/07 completed Not Available Not Available Not Available diclofenac sodium 75 mg tablet,tigre yed release 11/07 completed Not Available Not Available Not Available clobetasol 0.05 % topical ointment active Not Available Not Available Not Available polyethylen e glycol 3350 17 gram/dose oral powder Take 17 g every day by oral route as needed for 6 days. 02/22 completed Not Available Not Available Not Available levofloxaci n 500 mg tablet 09/01 completed Not Available Not Available Not Available methylpredn isolone 4 mg tablets in a dose pack 10/26 completed Not Available Not Available Not Available albuterol sulfate HFA 90 mcg/actuati on aerosol inhaler Inhale 2 puffs 4 times a day by inhalatio n route as needed for 30 days. active Not Available Not Available No t Available ondansetron 4 mg disintegrat ing tablet active Not Available Not Available N ot Available fluticasone propionate 50 mcg/actuati on nasal spray,suspe nsion [place] 2 sprays every day by intranasa l route as directed for 30 days. active Not Available Not Available No t Available dicyclomine 10 mg capsule 12/02 completed Not Available Not Available Not Available hydroxyzine pamoate 25 mg capsule 09/01 completed Not Available Not Available Not Available Cough Syrup DM 10 mg-100 mg/5 mL 09/01 completed Not Available Not Available Not Available duloxetine 30 mg capsule,del ayed release 09/01 completed Not Available Not Available Not Available duloxetine 60 mg capsule,del ayed release Take 1 capsule every day by oral route as directed for 30 days. active Not Available Not Available No t Available aspirin One po daily 11/07 completed Not Available Not Available Not Available cyclobenzap rine active PRN Not Available Not Available Not Available ondansetron 02/22 completed Not Available Not Available Not Available Oysco 500/D 500 mg-5 mcg (200 unit) tablet active Not Available Not Available Not Available peg 3350 240 gram-electr olytes 22.72 gram-6.72 g-5.84 g powdr for soln 09/01 completed Not Available Not Available Not Available Calcium 600 + D(3) 600 mg-10 mcg (400 unit) tablet Take 2 tablets every day by oral route as directed for 30 days. 2019 active Not Available Not Available Not Avai lable duloxetine 40 mg capsule,del ayed release 02/22 completed Not Available Not Available Not Available Afluria Qd 2018- (36 mos up)(PF)60 mcg (15 mcg x4)/0.5 mL IM syringe 10/26 completed Not Available Not Available Not Available Vitals Date Recorded Body height Body mass index (BMI) Body weight Body temperature Oxygen saturation Oxygen saturation in Arterial blood by Pulse oximetry Heart rate Systolic blood pressure Diastolic blood pressure Provider Name and Address Organization Details Last Updated DateTime 0 163.2 cm 25 kg/m2 41464.3 6 g 98.1 [degF] 98 % 98 % 70 /min 108 mm[Hg] 50 mm[Hg] Tyler Lovelace [place] - [facility] 0 12:50:56 Social History Question Answer Notes LastModified by Organizat ion Details LastModified Time Tobacco Smoking Status Former Smoker Tyler Lovelace MA [facility], [place] - [facility] 09/01/2019 11:55:33 What Is Your Level Of Alcohol Consumption? Occasional Information not available 09/01/2019 What Is Your Level Of Caffeine Consumption? Occasional Information not available 01/25/2020 How Much Tobacco Do You Chew? None Information not available 01/25/2020 In The 14 Days Before Symptom Onset, Have You Had Close Contact With A Laboratory-confir med COVID-19 While That Case Was Ill? No Information not available 01/25/2020 In The 14 Days Before Symptom Onset, Have You Had Close Contact With A Person Who Is Under Investigation For COVID-19 While That Person Was Ill? No Information not available 01/25/2020 Have You Been To An Area Known To Be High Risk For COVID-19? No Information not available 01/25/2020 What Type Of Diet Are You Following? REGULAR hdoverma Information not available 10/27/2019 Which Illicit Or Recreational Drugs Have You Used? None Information not available 01/25/2020 Do You Or Have You Ever Used E-cigarettes Or Vape? Current User Of Electronic Cigarettes Information not available 01/25/2020 Education 12 Information no t available 01/25/2020 What Is Your Occupation? Unemployed Information not available 01/25/2020 Are There Any Guns Present In Your Home? No Information not available 01/25/2020 Hard Of Hearing Or Deaf In One Or Both Ears? No Information not available 01/25/2020 Legally Blind In One Or Both Eyes? No Information no t available 01/25/2020 Marital Status Single Informatio n not available 01/25/2020 What Was The Date Of Your Most Recent Tobacco Screening? 01/25/2020 Information not available 01/25/2020 Performs Monthly Self-breast Exam? Yes Information no t available 01/25/2020 Seat Belts Used Routinely Yes Information not available 01/25/2020 Smoke Alarm In Home Yes Information not available 01/25/2020 At What Age Did You Start Smoking Tobacco? 22 Information not available 01/25/2020 Do You Or Have You Ever Used Smokeless Tobacco? Never Used Smokeless Tobacco Information not available 10/27/2019 How Much Tobacco Do You Smoke? No Information not available 10/27/2019 General Stress Level Low Information not available 01/25/2020 On What Date Was Tobacco Cessation Counseling Provided? 01/25/2020 Information not available 01/25/2020 How Many Years Have You Smoked Tobacco? 10 Information not available 09/01/2019 Sex: Unknown Functional Status Question Answer Note LastModified by Organization D etails LastModified Time What is your exercise level? Moderate Information not available 01/25/2020 Mental Status None recorded. Family History Relationship Description Onset Age of this Age Resolved Age Notes LastModified by Organization Details LastModified Time Brother Alcohol abuse bfalconerma Not available 08/21 11:53:56 Brother Attention deficit hyperactivit y disorder bfalconerma Not available 06/2020 11:54:18 Brother Depressive disorder bfalconerma Not available 08/21 11:54:37 Mother Asthma bfalconerma Not availabl e 09/01/2019 11:54:09 Mother Depressive disorder bfalconerma Not available 08/21 11:54:37 Mother Diabetes mellitus bfalconerma Not available 08/21 11:54:49 Mother Heart disease bfalconerma Not available 08/21 11:55:04 Mother Hypercholest erolemia bfalconerma Not available 08/21 11:55:21 Son Depressive disorder bfalconerma Not available 08/21 11:54:37 Father Heart disease bfalconerma Not available 08/21 11:55:04 Father Hypercholest erolemia bfalconerma Not available 08/21 11:55:21 Medical History Condition Response High Blood Pressure Y Breast Cancer N Kidney or Bladder Problems N Thyroid Problems N Depression Y COPD Y Blood Clots N GI Problems Y Skin Problems Y Anemia Y Headaches/Migraines N Anxiety Disorder Y Ovarian Cancer N Diabetes N Muscle, Joint, or Bone Problems Y Blood Transfusions N Seizures/Epilepsy N Infertility N Acid Reflux (GERD) Y Cancer N Abuse/Domestic Violence N Asthma Y Allergies Y Endometriosis Y High Cholesterol N Hepatitis N Liver Disease N Heart Disease N Osteoporosis N Gynecological History Statement/Question Response STIs/STDs N HPV Vaccine N Current Control Method Hysterectom y Most Recent Mammogram 07/21/2018 Age at First Child 20 Sexually Active? Y Menses Monthly N Date of Last Pap Smear 07/21/2004 Sexual Problems? N LMP Approximate Desired Control Method None Obstetrics History GPAL:G 2 P 2 0 0 2 Type Value Multiple Births 0 Full Term 2 Induced 0 Spontaneous 0 Premature 0 Living 2 Ectopics 0 Total 2 Immunizations Vaccine Type Date Status Note Provider Nam e and Address Organization Details Recorded Time Influenza, split virus, quadrivalent, preservative 9 completed BENITO [place], [place] - [facility] 09/01/2019 11:50:33 pneumococcal, unspecified formulation 9 BENITO [place], [place] - [facility] 09/01/2019 11:56:25 tetanus toxoid, unspecified formulation 8 BENITO [place], [place] - [facility] 09/01/2019 11:56:47 Past Encounters Encounter ID Performer Location Encounter Start Date Encounter Closed Date Diagnosis/Indication Diagnosis SNOMED-CT Code Diagnosis ICD10 Code Diagnosis Note [id number] [facility] [address] [place] [id number] 09/01/2019 11:07:43 09/01/2019 12:24:12 Osteoarthritis 799660088 M19.90 Discussed with patient. avoid steroid if possible. Chronic ob structive pulmonary disease 67207511 J44.9 She has 2 more days to finish methylpred nisolon. Discussed with patient about possible side effects of steroid. She has enough other medication s. Nicotine dependence 5629 4008 F17.200 Acid reflux 273256363 K2 1.9 Discussed with patient. Urged her to quit smoking, she said she got weed oil instead. [id number] MD Laureen Kendrick (Adult Med) [address] [place] [id number] 10/27/2019 12:04:10 10/28/2019 11:22:46 Abdominal pain 18111608 R10.9 PUD?Pancre atitis?Con stipation? Increase the dose of the Omeprazole LabsHold Aspirin Adult heal th examination 243909994 Z00.00 Acid reflux 650271147 K2 1.9 Constipation 66139036 K5 9.00 Anxiety 51460132 F41.9 Takotsubo cardiomyopathy 574889198 I51.81 Screening for malignant neoplasm of breast 956788739 Z12.39 Viral screening 48394555 4 Z11.59 History of total hysterectomy 717326874 Z90.710 History of cholecystectomy 466812532 Z90.49 [id number] MD Laureen Kendrick (Adult Med) [address] [place] [id number] 11/08/2019 12:16:34 11/11/2019 10:43:47 Liver function tests outside reference range 758164273 R94.5 Recheck Abdominal pain 07370030 R10.9 PUD?Pancre atitis? Continue Omeprazole LabsHold Aspirin GI follow up Electrocar diogram abnormal 910070585 R94.31 She has an appointmen t with her cardiologi st Seasonal a llergic rhinitis 793569642 J30.2 Dyspnea 516169442 R06.00 Anxiety 41537509 F41.9 Diverticul osis of colon without diverticulitis 561359312 K57.30 [id number] MD Laureen Mcginnis (Adult Med) [address] [place] [id number] 11/24/2019 14:21:05 11/25/2019 08:46:13 Chronic depression 900643710 F34.1 She agreed for the referral of behavior health clinic. Postmenopausal state 764 [address]387 Z78.0 [id number] MD Laureen Mcginnis (Adult Med) [address] [place] [id number] 12/03/2019 08:38:29 12/06/2019 14:04:01 Cervical radiculopathy 96659962 M54.12 Discussed with patient, she asking for the MRI and medication to try. dizziness might be related to her radiculopa thy. Lumbar radiculopathy 128 203423 M54.16 Discussed with patient, wanting MRI and trying medication ,. [id number] [facility] ([facility]S DEVELOPER) [address] [place] [id number] 01/25/2020 15:44:53 01/26/2020 07:39:09 History of total hysterectomy 472707246 Z90.710 Screening for osteoporosis 818335770 Z13.820 Screening for malignant neoplasm of breast 737322465 Z12.39 Gynecologi c examination 92749960 Z01.419 Irritable bowel syndrome 76318520 K58.9 [id number] MD Laureen Mcginnis (Adult Med) [address] [place] [id number] 02/09/2020 09:48:27 02/10/2020 15:37:56 Cervical radiculopathy 63907344 M54.12 Discussed with patient, she asking for the MRI and medication to try. dizziness might be related to her radiculopa thy. Numbness , tingling , pain and weakness of arma and hands , radiating from shoulders. Lumbar radiculopathy 128 996921 M54.16 Discussed with patient, wanting MRI and trying medication ,. Pain, tingling from lower back down to the legs and feet. Osteopenia 927893697 M85 .80 Discussed with patient, she agreed for the calcium and Vitamin D. [id number] [facility] [address] [place] [phone] 02/23/2020 12:08:44 02/24/2020 14:20:53 Cervical radiculopathy 64522895 M54.12 Discussed with patient, she asking for the MRI and medication to try. dizziness might be related to her radiculopa thy. Numbness , tingling , pain and weakness of arma and hands , radiating from shoulders. To elbow and hand. [id number] MD Laureen Mcginnis (Adult Med) [address] [place] [id number] 03/01/2020 12:57:39 03/02/2020 15:39:31 Exposure to SARS-CoV-2 192421226 Z20.828 FAXED TO [facility] TEST SITE TODAY , SHE WILL CALL TO CONFIRM THE ORDER. Acid reflux 431700235 K2 1.9 Discussed with patient. Urged her to quit smoking, she said she got weed oil instead. [id number] MD Laureen Mcginnis (Adult Med) [address] [place] [id number] 03/16/2020 08:09:07 03/20/2020 21:31:25 Cervical radiculopathy 85232889 M54.12 Pain radiating down to arms and elbows, also tingling and numbness of hands. [id number] MD Laureen Mcginnis (Adult Med) [address] [place] [phone] 04/24/2020 08:10:49 04/28/2020 12:46:17 Chronic neck pain 5238366710 107 M54.2 Will consider MRI in the future if her insurance permits. Swa her neurologis t and behavioral health care provider in [facility]. But she has had dizzy spell all the time , [place]. Health Concerns Section Related Observation LastModified by Organization Detai ls LastModified Time None Recorded Concern Status LastModified by Organization Details LastModified Time None Recorded Advance Directives Directive None Recorded Payers Encounter Date Sequence Insurance Name Policy Number Policy Morales Covered Member ID Morales Member ID Guarantor Name 02/09/2020 1 [facility] PRIOR TO 01/18/2021 (MEDICAID REPLACEMENT - HMO) Nova Tamez [id number] Nova Tamez 02/23/2020 1 [facility] PRIOR TO 01/18/2021 (MEDICAID REPLACEMENT - HMO) Nova Tamez [id number] Nova Tamez 03/01/2020 1 [facility] PRIOR TO 01/18/2021 (MEDICAID REPLACEMENT - HMO) Nova Tamez [id number] Nova Tamez 03/16/2020 1 [facility] PRIOR TO 01/18/2021 (MEDICAID REPLACEMENT - HMO) Nova Tamez [id number] Nova Tamez 04/24/2020 2 [place] WHEN MED[place]ARE OR MEDICARE REPLACEMENT PRIMARY) Nova Tamez [id number] Nova Tamez 04/24/2020 1 [place] Nova Tamez [id number] Nova Tamez Notes Date Note Type Note Provider Name and Address Organization Details Recorded Time 02/09/2020 text/html This is phone visit, due to snowden virus pandemic, she understood and agreed, 1. Has had cervical and lumbar radiculopathy for years , might have taken MRI before? , went to chiropractor and director [employer] database , but no official report in the file of this office, will try to find it . 2. Numberness and tingling from neck , back to elbows and legs , toes and weakness of hands, and pain constant, had tried gabapentin and meloxicam but in vain, NKDA,. Bone density reported osteopenia. Yakov Mondragon MD Attn: Accounting, [address] [place], [address], [facility] 02/09/2020 15:59:45 02/23/2020 text/html Office visit, pa in radiating to right elbow and left hand, constant pain, hard to lift any thong even an not lift her grand kids, can not tolerate gabapentin which made her nauseated. Hard to perform her daily routine. Yakov Mondragon MD Attn: Accounting, [address] [place], [address], [facility] 03/01/2020 16:03:25 03/01/2020 text/html THIS PHONE VISIT , DUE TO SNOWDEN VIRUS PANDEMIC, IN FACT SHE HAD CONTACTED PERSON WHO HAS POSITIVE CORVIS-19, WANTS TO BE TESTED TODAY AND REFILL OMEPRAZOLE FOR HER ACID REFLUX, ALLERGIC TO GABAPENTIN, MEANTIME SHE SHALL HAVE SELF QUARANTINED. SHE AGREED. Yakov Mondragon MD Attn: Accounting, [address] [place], [address], [place] [facility] 03/01/2020 13:41:08 03/16/2020 text/html This is phone visit, due to snowden virus pandemic, allergic to gabapentin, she understood and agreed , she said that she will see a neurologist Dr. Reginaldo BOWERS at [facility], wants NCS at near facility before her visit , will fax to [phone], phone # is [phone], alos want some mild greed of pain medication before she sees her neurologist. Yakov Mondragon MD Attn: Accounting,[address], [place], [address], [place] 03/16/2020 15:53:48 04/24/2020 text/html This phone vvisi t, due to snowden virus pandemic, allergic to gabapentin, neck arthritis with dizzy spell.wants MRI and pT at this side of [place]. Yakov Mondragon MD Attn: Accounting,[address], [place], [address], [place] 04/24/2020 15:15:21 OBGyn Episode Ob Episode Information Episode Created Date Number of Fetuses Patient Bloodtype Patient rh Status Prepregnancy Weight lbs Domestic Partner Domestic Partner Phone Father Name Service Inspector Status 01/25/20 20 1 CLOSED Fetus Data First Name Last Name Admitted to NICU Weight (g) Sex Living Outcome Pediatric Complications Fetus ID Race Codes Race Delivery Type 3628.73 6 M [id number] Gm Calculation Initial Gm Date Initial Exam Date Initial Exam Provider Initial Ultrasound Date Last Menstrual Period Date Ultra Sound Weeks Gestation 0 Eighteen To Twenty Week Gm Update Ultra Sound Date Fundal Height At Umbil Quickening Date Ultra Sound Latest Weeks Gestation Final Gm Confirmed By Final Gm Confirmed Date Final Gm Date Ultra Sound Latest Days Gestation 0 0 Menstrual History Last Menstrual Date Menses Monthly On Bcp Conception Prior Menses Frequency Hcg Plus Date Menarche Onset Age Delivery Information Delivery Date Delivery Type Labor Anesthesia Weeks Gestation Incision Type Labor Labor Length Hrs Delivered By Post Complications Tubal Sterilization Discharge Date Comments 1 40 false Discharge Information Feeding Method Contraceptive Method Maternal HG B and HCT Levels Ob Episode Information Episode Created Date Number of Fetuses Patient Bloodtype Patient rh Status Prepregnancy Weight lbs Domestic Partner Domestic Partner Phone Father Name Service Inspector Status 01/25/20 20 1 CLOSED Fetus Data First Name Last Name Admitted to NICU Weight (g) Sex Living Outcome Pediatric Complications Fetus ID Race Codes Race Delivery Type 5556.50 2 M Full Term [id number] Gm Calculation Initial Gm Date Initial Exam Date Initial Exam Provider Initial Ultrasound Date Last Menstrual Period Date Ultra Sound Weeks Gestation 0 Eighteen To Twenty Week Gm Update Ultra Sound Date Fundal Height At Umbil Quickening Date Ultra Sound Latest Weeks Gestation Final Gm Confirmed By Final Gm Confirmed Date Final Gm Date Ultra Sound Latest Days Gestation 0 0 Menstrual History Last Menstrual Date Menses Monthly On Bcp Conception Prior Menses Frequency Hcg Plus Date Menarche Onset Age Delivery Information Delivery Date Delivery Type Labor Anesthesia Weeks Gestation Incision Type Labor Labor Length Hrs Delivered By Post Complications Tubal Sterilization Discharge Date Comments 3 40 false Discharge Information Feeding Method Contraceptive Method Maternal HG B and HCT Levels
--- OUTSIDE RECORDS SUMMARY | 2024-09-01 09:32 | XMS_ITS | Referral Summary ---
Author Organization [facility] Address [address] [place] [address] Care Team Providers Care Gang Supervisor Pipe Lines Name Role Phone Yakov Mondragon MD Primary Care Provider [phone] Allergies No known active allergies Medications cyclobenzaprine (FLEXERIL) 10 mg tablet Take 1 tablet (10 mg total) by mouth every 8 (eight) hours as needed for muscle spasms 20 tablet 03/02/20 20 Active ondansetron ODT (ZOFRAN-ODT) 4 mg disintegrating tablet Dissolve 1-2 tablets oral every 8 hours as needed for nausea or vomiting. 15 tablet 03/02/20 20 Active albuterol HFA (PROVENTIL HFA,VENTOLIN HFA,PROAIR HFA) 90 mcg/actuation inhaler INL 2 PFS PO QID PRN 02/15/20 20 Active alendronate (FOSAMAX) 70 mg tablet TK 1 T PO Q WK 02/09/20 20 Active aspirin 81 mg enteric coated tablet Take 1 tablet every day by oral route. Active Oysco 500/D 500 mg(1,250mg) -200 unit per tablet TK 1 T PO BID 03/06/[address] (VOLTAREN) 75 mg EC tablet diclofenac sodium 75 mg tablet,delayed release TK 1 T PO BID Active DULoxetine DR (CYMBALTA) 60 mg capsule duloxetine 60 mg capsule,delayed release TAKE 1 CAPSULE BY MOUTH EVERY DAY 12/02/19 19 Active dicyclomine (BENTYL) 20 mg tablet every 8 hours 01/09/20 19 Active fluticasone propionate (FLONASE) 50 mcg/actuation nasal spray fluticasone propionate 50 mcg/actuation nasal spray,suspensio n Active multivitamin tablet TK 1 T PO QD 01/25/20 20 Active omeprazole (PriLOSEC) 40 mg capsule TK 1 C PO QD UTD 03/01/20 20 Active Active Problems No known active problems Social History Tobacco Use Types Packs/Day Years Used Date Smoking Tobacco: Former Smokeless Tobacco: Never Alcohol Use Standard Drinks/Week Comments Yes 0 (1 standard drink = 0.6 oz pur e alcohol) occasional Personal Safety Answer Date Recorded Getting School Help Needed Not on file 10/03 Comments Unknown Sex and Gender Information Value Date Recorded Sex Assigned at Not on file 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 Gender Identity Not on file Sexual Orientation Not on file Last Filed Vital Signs Vital Sign Reading Time Taken Comments Blood Pressure 132/76 05/10/2020 9:02 AM CDT Pulse 78 05/10/2020 9:02 AM CDT Temperature 36.8 C (98.2 F) 03/02/2020 2:42 PM CDT Respiratory Rate 16 05/10/2020 9:02 AM CDT Oxygen Saturation 98% 03/02/2020 2:42 PM CDT Inhaled Oxygen Concentration - - Weight 66.7 kg (146 lb 15 oz) 05/10/2020 9:02 AM CDT Height 165.1 cm (5' 5 ) 05/10/2020 9:02 AM CDT Body Mass Index 24.45 05/10/2020 9:02 AM CDT Plan of Treatment Not on file Insurance [facility] WELL[employer] MEDICARE HMO [facility] IDPA [facility] Care Teams Gang Supervisor Pipe Lines Relationship Specialty Start Date End Date Yakov Mondragon MD [address] [place] [address] PCP - General 03/02/20
--- OUTSIDE RECORDS SUMMARY | 2024-09-01 09:32 | XMS_ITS | Clinical Summary ---
Author Organization [facility] Address [address] [place] [address] Phone Care Team Providers Care Eastern Philosophy Professor Name Role Phone Danilo Nichols MD Primary Care Provider [phone] Encounters Date Type Department Care Team Description 06/25/2024 1:30 PM COMMERCIAL CENTER MANAGER Clinical Support [facility] [address] [place] [address] Danilo Nichols MD Osteoporosis, unspecified osteoporosis type, unspecified pathological fracture presence (Primary Dx) Discharge Disposition: Discharged to home or Selfcare 06/25/2024 Travel from Last 3 Months Social History Tobacco Use Types Packs/Day Years Used Date Smoking Tobacco: Never Assessed Comments Unknown Sex and Gender Information Value Date Recorded Sex Assigned at Not on file Legal Sex Female 11:54 PM CDT Gender Identity Not on file Sexual Orientation Not on file Last Filed Vital Signs Vital Sign Reading Time Taken Comments Blood Pressure 109/66 06/25/2024 1:38 PM COMMERCIAL CENTER MANAGER Pulse 58 06/25/2024 1:38 PM COMMERCIAL CENTER MANAGER Temperature 36.4 C (97.5 F) 06/25/2024 1:38 PM COMMERCIAL CENTER MANAGER Respiratory Rate 18 06/25/2024 1:38 PM COMMERCIAL CENTER MANAGER Oxygen Saturation 99% 06/25/2024 1:38 PM COMMERCIAL CENTER MANAGER Inhaled Oxygen Concentration - - Weight - - Height - - Body Mass Index - - Plan of Treatment Health Maintenance Due Date Last Done Comments Hepatitis C Virus (HCV) Screening 1962 Pap Smear 10/26/1983 Cervical Cancer Screening (CCS) 1992 HPV/Cotest 1992 Hepatitis B Immunization (3 of 3 - 19+ 3-dose series) 05/22/2005 03/27/2005, 10/19/2004 Colonoscopy 10/26/2007 Colorectal Cancer Screening 10/26/2007 Cologuard 2012 Immunochemical Fecal Occult Blood 2012 Pneumococcal Immunization (5 0+ years) (1 of 1 - PCV) 2012 07/21/2018 Mammogram 08/25/2020 08/25/2018 Zoster Immunization (2 of 2) 06/28/2021 05/03/2021 Influenza Immunization (#1) 03/21/202402/18, 05/11/2014 SARS-COV-2 Immunization ( - season) 2024 Respiratory Syncytial Virus (RSV) Immunization (Adult) (1 - 1-dose 75+ series) 2037 Pneumococcal Immunization Combined Discontinued 07/21/2018 DTaP/Tdap/Td Immunization Discontinued 11/18/2018 TdaP Immunization Completed 11/18/2018 Meningococcal Immunization (ACWY) Aged Out No longer eligible based on patient's age to complete this topic Rotavirus Immunization Aged Out No lo nger eligible based on patient's age to complete this topic Insurance MEDICARE C [facility] Care Teams Eastern Philosophy Professor Relationship Specialty Start Date End Date Danilo Nichols MD [address] [address] PCP - General Internal Medicine 06/25/24
--- OUTSIDE RECORDS SUMMARY | 2024-09-01 09:32 | XMS_ITS | Clinical Summary ---
Author Organization [facility] Address [address] [place] [address] Care Team Providers Care Diesel Technician Name Role Phone Yakov Mondragon MD Primary Care Provider [phone] Allergies No known active allergies Medications cyclobenzaprine [...] Active Active Problems No known active problems Medical History Medical History Date Comments Cardiomyopathy (HCC) Asthma Depression Osteopenia Family History Medical History Relation Name Comments Heart disease Father Diabetes Mother Relation Name Status Comments Father Mother Social History Tobacco Use Types Packs/Day Years [...] on file 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
--- OUTSIDE RECORDS SUMMARY | 2024-09-01 09:32 | XMS_ITS ---
Author Organization [facility] Address [address] [place] [address] Phone Care Team Providers Care Ground Crewman Aircraft Support Name Role Phone Danilo Nichols MD Primary Care Provider [phone] [facility] Status:Enrolled (Active) Start date:08/18/2024 Enrollment date:08/18/2024 Related social drivers of health:Social Connections, Alcohol Use, Tobacco Use, Financial Resource Strain, Depression, Stress, Physical Activity, Food Insecurity, Transportation Needs, Housing Stability, Utilities Continued Care and Services Coordination
--- OUTSIDE RECORDS SUMMARY | 2024-09-01 09:32 | XMS_ITS | CONTINUITY OF CARE DOCUMENT ---
Author Name wil de la torre Address Unknown Organization [facility] Address [address] 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 Vee arias MD Other symptoms involving cardiovascular system completed - Vee Parish MD Family History of Hypertension: completed - Vee Parish MD Family History of Hypertension: completed - Vee Parish MD ENCOUNTERS Date Type Provider Location Encounter Diag nosis - In-person encounter Office Visit Vee Parish MD [facility] Chest pain atypical - In-person encounter Office Visit Vee Parish MD [facility] - In-person encounter Office Visit Vee Parish MD TeleHealth - In-person encounter Office Visit Vee Parish MD [facility] - In-person encounter Office Visit Vee Parish MD [facility] - In-person encounter Office Visit Vee Parish MD [facility] Dizziness - In-person encounter Office Visit Vee Parish MD [facility] - In-person encounter Office Visit Vee Parish MD [facility] - In-person encounter Office Visit Vee Parish MD [facility] - In-person encounter Office Visit Vee Parish MD [facility] Family History of Hypertension:Family History of Hypertension:Other symptoms involving cardiovascular systemChest painHTN essentialFatigue - In-person encounter Office Visit Vee Parish MD [facility] - In-person encounter Office Visit Vee Parish MD [facility] Palpitations - In-person encounter Office Visit Vee Parish MD [facility] Edema - generalized - In-person encounter Office Visit Vee Parish MD [facility] - In-person encounter Office Visit Vee Parish MD [facility] Sleep apnea - In-person encounter Office Visit Vee Parish MD [facility] Congestive Heart FailureCHF - systolicShortness of breath VITAL SIGNS Date Observation Value Provider Body Mass Index (Ratio) 11.98 kg/m2 Teresa Parish MD blood pressure, cuff size regular Tr carroll Benjamin blood pressure, diastolic 68 mm[Hg] Tr carroll Benjamin blood pressure, systolic 112 mm[Hg] Lowell Benjamin oxygen saturation, oximetry 94 % Jeremy Benjamin respiratory rate E&M 18 /min Jeremy Benjamin pulse rate 72 /min Jeremy Benjamin weight E&M 72 [lb_av] Jeremy Benjamin height E&M 65 [in_i] Jeremy Benjamin Body Mass Index (Ratio) 25.29 kg/m2 Teresa Parish MD blood pressure, diastolic 79 mm[Hg] Cy reid Escobedo blood pressure, systolic 125 mm[Hg] Isabelle margarita Escobedo pulse rate 91 /min Glendy Alpeshbel l oxygen saturation, oximetry 98 % Glendy Escobedo blood pressure, cuff size regular Cy ntvirginiajorge Escobedo respiratory rate E&M 16 /min Glendy Escobdeo weight E&M 152 [lb_av] Glendy Campbel l height E&M 65 [in_i] Glendy Campbel l Body Mass Index (Ratio) 21.80 kg/m2 Teresa Parish MD blood pressure, cuff size regular Cy ntvirginiaa Escobedo blood pressure, diastolic 70 mm[Hg] Cy ntvirginiaa Gregg blood pressure, systolic 116 mm[Hg] Isabelle talyaa Gregg oxygen saturation, oximetry 97 % Glendy Escobedo respiratory rate E&M 16 /min Glendy Escobedo pulse rate 86 /min Glendy Campbel l weight E&M 131 [lb_av] Glendy Campbel l height E&M 65 [in_i] Glendy Campbel l Body Mass Index (Ratio) 23.29 kg/m2 Teresa Parish MD blood pressure, diastolic 80 mm[Hg] Da marylu Nely blood pressure, systolic 122 mm[Hg] Dac ia Nely oxygen saturation, oximetry 95 % Kenisha Nely respiratory rate E&M 16 /min Kenisha V oss pulse rate 69 /min Kenisha Nely weight E&M 140 [lb_av] Kenisha Nely height E&M 65 [in_i] Kenisha Nely Body Mass Index (Ratio) 22.96 kg/m2 Teresa Parish MD blood pressure, cuff size small Cy reid Escobedo blood pressure, diastolic 68 mm[Hg] Cy reid Gregg blood pressure, systolic 140 mm[Hg] Isabelle avila Gregg oxygen saturation, oximetry 98 % Glendy Escobedo respiratory rate E&M 16 /min Glendy Escobedo pulse rate 79 /min Glendy Michaels l weight E&M 138 [lb_av] Glendy Bettsbel l height E&M 65 [in_i] Glendy Bettsbel l Body Mass Index (Ratio) 22.63 kg/m2 Teresa Parish MD pulse rate 60 /min [facility], oximetry 98 % Joseph Christopher blood pressure, diastolic 60 mm[Hg] Rodrick Christopher blood pressure, systolic 98 mm[Hg] Celina Christopher blood pressure, resting Yes Celinar cassandra Christopher respiratory rate E&M 16 /min Joseph Christopher weight E&M 136 [lb_av] Joseph [facility] alana height E&M 65 [in_i] [facility] pulse rate #2 68 Yessenia Ralph blood pressure, amos tolchantelle, second observation 86 mm[Hg] [facility] blood pressure, syst olic, second observation 138 mm[Hg] [facility] oxygen saturation, oximetry 98 % [facility] pulse rate 68 /min [facility] blood pressure, diastolic 86 mm[Hg] Vi ctoria Tebid blood pressure, systolic 138 mm[Hg] Manuel tara [facility] Body Mass Index (Ratio) 22.10 kg/m2 Gail Jason blood pressure, diastolic 76 mm[Hg] Margarito Orellana blood pressure, systolic 117 mm[Hg] Tiny Orellana oxygen saturation, oximetry 97 % Dagmar Orellana respiratory rate E&M 18 /min Lincoln Orellana pulse rate 64 /min Dagmar Araujo bradley weight E&M 132.8 [lb_av] Dagmar sofia height E&M 65 [in_i] Dagmar Araujo bradley pulse rate #[address] [facility] blood pressure, amos tolic, second observation 80 mm[Hg] [facility] blood pressure, syst olic, second observation 107 mm[Hg] [facility] oxygen saturation, oximetry 98 % [facility] pulse rate 60 /min [facility] blood pressure, diastolic 80 mm[Hg] [facility] Tebid blood pressure, systolic 107 mm[Hg] Manuel tara bid pulse rate #[address] [facility] blood pressure, amos tolic, second observation 59 mm[Hg] [facility], syst olic, second observation 88 mm[Hg] [facility] oxygen saturation, oximetry 98 % [facility] pulse rate 59 /min [facility] blood pressure, diastolic 59 mm[Hg] [facility] Institutebid blood pressure, systolic 88 mm[Hg] Manuel tara Tebid pulse rate #2 64 [facility] d blood pressure, amos tolic, second observation 69 mm[Hg] [facility] d blood pressure, syst olic, second observation 111 mm[Hg] [facility] d oxygen saturation, oximetry 98 % Olin pulse rate 64 /min Olin blood pressure, diastolic 69 mm[Hg] Vi ctoria Tebid blood pressure, systolic 111 mm[Hg] Manuel tara Tebid pulse rate #2 64 [facility] blood pressure, amos tolic, second observation 79 mm[Hg] Olin blood pressure, syst olic, second observation 101 mm[Hg] [facility] oxygen saturation, oximetry 98 % Olin pulse rate 64 /min Olin blood pressure, diastolic 79 mm[Hg] Vi [facility] Ted blood pressure, systolic 101 mm[Hg] Manuel tara Ted pulse rate #2 76 [facility] blood pressure, amos tolic, second observation 69 mm[Hg] [facility] d blood pressure, syst olic, second observation 112 mm[Hg] [facility], oximetry 98 % Olin pulse rate 76 /min Olin d blood pressure, diastolic 69 mm[Hg] Vi ctoria Tebid blood pressure, systolic 112 mm[Hg] Manuel simmonsia Tebid pulse rate #2 61 [facility] d blood pressure, amos tolic, second observation 74 mm[Hg] [facility]lin d blood pressure, syst olic, second observation 122 mm[Hg] [facility], oximetry 98 % [facility] pulse rate 61 /min [facility], diastolic 74 mm[Hg] [facility] Tebid blood pressure, systolic 122 mm[Hg] Manuel tara bid pulse rate #2 65 Olin blood pressure, amos tolic, second observation 75 mm[Hg] [facility] blood pressure, syst olic, second observation 117 mm[Hg] [facility] oxygen saturation, oximetry 98 % Olin pulse rate 65 /min Olin blood pressure, diastolic 75 mm[Hg] Vi [facility] d blood pressure, systolic 117 mm[Hg] Manuel [facility] #2 67 [facility] blood pressure, amos tolic, second observation 72 mm[Hg] [facility] blood pressure, syst olic, second observation 105 mm[Hg] [facility] oxygen saturation, oximetry 98 % Olin pulse rate 67 /min Olin blood pressure, diastolic 72 mm[Hg] Vi [facility] d blood pressure, systolic 105 mm[Hg] Manuel tara d pulse rate #2 60 [facility] blood pressure, amos tolic, second observation 76 mm[Hg] [facility] blood pressure, syst olic, second observation 115 mm[Hg] [facility] oxygen saturation, oximetry 98 % Olin pulse rate 60 /min Olin blood pressure, diastolic 76 mm[Hg] Vi [facility] d blood pressure, systolic 115 mm[Hg] Manuel tara d pulse rate #2 63 [facility] blood pressure, amos tolic, second observation 71 mm[Hg] [facility] blood pressure, syst olic, second observation 120 mm[Hg] [facility], oximetry 98 % Yessenia Tebid pulse rate 63 /min Yessenia Tebid blood pressure, diastolic 71 mm[Hg] Shavonen tirado Tebid blood pressure, systolic 120 mm[Hg] Manuel pacheco Tebid Body Mass Index (Ratio) 22.46 kg/m2 Esse nce Jason blood pressure, diastolic 60 mm[Hg] Da marylu Nely blood pressure, systolic 92 mm[Hg] Dac ia Nely oxygen saturation, oximetry 98 % Kenisha Nely respiratory rate E&M 16 /min Kenisha V oss pulse rate 71 /min Kenisha Nely weight E&M 135 [lb_av] Kenisha Nely height E&M 65 [in_i] Kenisha Nely Body Mass Index (Ratio) 24.73 kg/m2 Teresa Parish MD blood pressure, resting No Gia Pinto Orellana blood pressure, diastolic 73 mm[Hg] Margarito garciaTalicharly Orellana blood pressure, systolic 124 mm[Hg] Tiny Orellana oxygen saturation, oximetry 98 % Dagmar Orellana respiratory rate E&M 18 /min Lincoln Orellana pulse rate 70 /min Dagmar contreras weight E&M 148.6 [lb_av] Dagmar sofia height E&M 65 [in_i] Dagmar Van nson Body Mass Index (Ratio) 24.63 kg/m2 Teresa Parish MD blood pressure, cuff size regular Ke rri Heladio blood pressure, diastolic 85 mm[Hg] Ke rri Heladio blood pressure, systolic 133 mm[Hg] Geetha Leija oxygen saturation, oximetry 98 % Fatimah Leija respiratory rate E&M 16 /min Fatimah Kavon alvarezenenfelder pulse rate 77 /min Fatimah Ascencio lder weight E&M 148 [lb_av] Fatimah Carminaneamarilise lder height E&M 65 [in_i] Fatimah Rodrigueznfe lder Body Mass Index (Ratio) 25.79 kg/m2 Teresa Parish MD blood pressure, cuff size regular Ke rri Carminaneamariliselder blood pressure, diastolic 75 mm[Hg] Ke rri Alexanderueneamariliselder blood pressure, systolic 124 mm[Hg] Geetha ri [facility] oxygen saturation, oximetry 98 % Fatimah Maxwellelder respiratory rate E&M 16 /min Fatimah Jacobson kimginamolly pulse rate 68 /min Fatimah Maxwelle er weight E&M 155 [lb_av] Fatimah Maxwelle er height E&M 65 [in_i] Fatimah Maxwelle er blood pressure, diastolic 60 mm[Hg] Margarito Orellana blood pressure, systolic 112 mm[Hg] Tiny Orellana pulse rate 69 /min Dagmar contreras oxygen saturation, oximetry 99 % Dagmar Orellana respiratory rate E&M 16 /min Lincoln Orellana Body Mass Index (Ratio) 24.76 kg/m2 Gia Orellana weight E&M 148.8 [lb_av] Dagmar sofia blood pressure, diastolic 70 mm[Hg] Margarito Orellana blood pressure, systolic 116 mm[Hg] Tiny Orellana pulse rate 70 /min Dagmar contreras oxygen saturation, oximetry 98 % Dagmar Orellana respiratory rate E&M 16 /min Lincoln Orellana Body Mass Index (Ratio) 25.56 kg/m2 Gia Orellana weight E&M 153.6 [lb_av] Dagmar sofia weight E&M 153 [lb_av] Candice Escobarnard height E&M 65 [in_i] Candice Butler blood pressure, diastolic 65 mm[Hg] Ke rri Alexanderuenenfmolly blood pressure, systolic 120 mm[Hg] Geetha ri Heladio pulse rate 67 /min Fatimah Alissae lder oxygen saturation, oximetry 98 % Fatimah Heladio respiratory rate E&M 16 /min Fatimah G azra Body Mass Index (Ratio) 25.46 kg/m2 Denise i Heladio weight E&M 153 [lb_av] Fatimah Carminanenfe lder blood pressure, diastolic 66 mm[Hg] Margarito Orellana blood pressure, systolic 106 mm[Hg] Tiny Sullivan Orellana pulse rate 76 /min Dagmar Araujo laurabradley oxygen saturation, oximetry 97 % Dagmar Orellana respiratory rate E&M 16 /min Lincoln Orellana Body Mass Index (Ratio) 24.53 kg/m2 Gia Orellana weight E&M 147.4 [lb_av] Dagmar sofia height E&M 65 [in_i] Dagmar Araujo nsbradley ALLERGIES No Known Drug Allergies RESULTS Date Observation Value Provider Reference Range Interpretation Location B-type natriuretic peptide 25.8 pg/mL [facility] 0.0-100.0 lipoprotein, beta, serum, point, quantitative, calculated 101 mg/dL [facility] 0-99 High very low density lipoproteins 17 mg/dL [facility] 5-40 HDL cholesterol, serum 76 mg/dL [facility] >39 triglyceride, serum, random 87 mg/dL [facility] 0-149 cholesterol, serum 194 mg/dL [facility] [id number] 1601/07 /16 alanine aminotransferase (SGPT), serum 14 1/L [facility] 0-32 aspartate aminotransferase (SGOT), serum 17 1/L [facility] 0-40 alkaline phosphatase, serum 69 1/L [facility] 39-117 bilirubin, serum, total 1.5 mg/dL [facility] 0.0-1.2 High albumin/globulin ratio, serum 2.1 [facility] 1.2-2.2 globulin, serum 2.2 [facility] 1.5-4.5 albumin, serum 4.7 g/dL [facility] 3.8-4.9 protein, total, serum 6.9 g/dL [facility] 6.0-8.5 calcium, serum 9.8 mg/dL [facility] 8.7-10.2 carbon dioxide, venous blood 26 mmol/L [facility] 20-29 chloride, serum 101 mmol/L [facility] 96-106 potassium, serum 4.9 mmol/L [facility] 3.5-5.2 sodium, serum 143 mmol/L [facility] [id number]/07 /16 urea nitrogen/creatinine ratio, serum 31 [facility] 9-23 High eGFR if 113 mL/min/{1.73_ m2} [facility] >59 eGFR if not 98 mL/min/{1.73_ m2} [facility] >59 creatinine, serum 0.67 mg/dL [facility] 0.57-1.00 urea nitrogen, blood 21 mg/dL [facility] 6-24 blood glucose, random 134 mg/dL [facility] 65-99 High B-type natriuretic peptide 25 pg/mL [facility] <100 Normal alanine aminotransferase (SGPT), serum 13 1/L [facility] 6-29 Normal aspartate aminotransferase (SGOT), serum 15 1/L [facility] 10-35 Normal alkaline phosphatase, serum 63 1/L [facility] 33-130 Normal bilirubin, serum, total 0.9 mg/dL [facility] 0.2-1.2 Normal albumin/globulin ratio, serum 1.9 (calc) [facility] 1.0-2.5 Normal globulins, serum, total 2.3 G/DL (CALC) [facility] 1.9-3.7 Normal albumin, serum 4.3 g/dL [facility] 3.6-5.1 Normal protein, total, serum 6.6 g/dL [facility] 6.1-8.1 Normal calcium, serum 9.7 mg/dL [facility] 8.6-10.4 Normal carbon dioxide, venous blood 28 mmol/L [facility] 20-32 Normal chloride, serum 107 mmol/L [facility] 98-110 Normal potassium, serum 4.5 mmol/L [facility] 3.5-5.3 Normal sodium, serum 144 mmol/L [facility] 135-146 Normal urea nitrogen/creatinine ratio, serum NOT APPLICABLE (calc) [facility] 6-22 Estimated Glomerular Filtration Rate (calc) 111 mL/min/{1.73_ m2} [facility] > OR = 60 Normal creatinine, serum 0.71 mg/dL [facility] 0.50-1.05 Normal urea nitrogen, blood 20 mg/dL [facility] 7-25 Normal blood glucose, random 92 mg/dL [facility] 65-99 Normal LDL Size 228.6 Angstrom [facility] > OR = 217.4 LDL particle concentration (lipoprotein panel), risk categories correspond to NCEP categories for LDL cholesterol (on a percentile equivalent basis) 1390 nmol/L [facility] 732-2035 cholesterol, non-HDL, total 121 MG/DL (CALC) [facility] <130 cholesterol/HDL ratio, serum, percent 2.7 calc [facility] <5.0 LDL cholesterol, serum 100 mg/dL [facility] <100 High triglyceride, serum, fasting 109 mg/dL [facility] <150 HDL cholesterol, serum 72 mg/dL [facility] >50 cholesterol, serum 193 mg/dL [facility] <200 free thyroxine index 8.0 ??g/dL [facility] 4.4 - 11.4 triiodothyronine uptake 1.0 TBI [facility] 0.8 - 1.3 thyroxine, serum, total 8.0 ??G/DL [facility] 4.5 - 11.7 thyroid stimulating hormone, serum 0.426 ??IU/ML [facility] 0.270 - 4.200 urea nitrogen/creatinine ratio, serum 21.1 [facility] - Estimated Glomerular Filtration Rate (calc) 69.6 (?) [facility] 59.0 - chloride, serum 100.8 mmol/L [facility] 98.0 - 107.0 potassium, serum 4.5 mmol/L [facility] 3.5 - 5.1 sodium, serum 143.0 mmol/L [facility] 136.0 - 145.0 creatinine, serum 0.9 mg/dL [facility] 0.5 - 1.0 carbon dioxide, venous blood 30.0 mmol/L [facility] 22.0 - 29.0 High calcium, serum 9.9 mg/dL [facility] 8.6 - 10.2 urea nitrogen, blood 19.0 mg/dL [facility] 6.0 - 20.0 blood glucose, random 89.0 mg/dL [facility] 74.0 - 99.0 red blood cell distribution width, size density 44.6 fL [facility] - mean platelet volume 10.8 (?) [facility] - platelet count 319.0 THOUSAND/UL [facility] 100.0 - 400.0 mean corpuscular hemoglobin concentration, RBC 32.9 G/DL [facility] 31.0 - 38.0 mean corpuscular hemoglobin, RBC 31.9 pg [facility] 25.0 - 35.0 mean corpuscular volume, RBC 97.1 fL [facility] 75.0 - 100.0 hematocrit, blood 37.1 % [facility] 35.0 - 55.0 hemoglobin, blood 12.2 g/dL [facility] 11.5 - 16.5 erythrocyte count, whole blood 3.8 MILLION/UL [facility] 3.5 - 5.5 HISTORY OF MEDICATION USE Medication Status Instructions Dates Provider Indications Com ments duloxetine 40 mg capsule,delayed release(DR/EC) active Take 1 tablet by mouth twice a day Glendy Escobedo BUSPIRONE HCL 5 MG ORAL TABLET completed take 1 tablet once daily - Glendy Escobedo YOSPRALA 81-40 MG ORAL TABLET DELAYED RELEASE completed qday - Loi Madrid RN YOSPRALA 81-40 MG ORAL TABLET DELAYED RELEASE completed qday - Loi Madrid RN ISOSORBIDE MONONITRATE ER 30 MG ORAL TABLET EXTENDED RELEASE 24 HOUR completed Take 1 Tablet 4 Times A Day. - Vee Parish MD albuterol sulfate 2 mg tablet active 2 puff every four hours Dagmar Orellana SPIRONOLACTONE 25 MG ORAL TABLET completed 1/2 pill a day - Dagmar Orellana VASOTEC 10 MG ORAL TABLET completed ONE tab 1/2 in am and 1 tab in pm - Glendy Escobedo CARVEDILOL 6.25 MG ORAL TABLET completed 1/2 pill twice a day - Dagmar Orellana increased from 3.125mg twice daily RANEXA 500 MG ORAL TABLET EXTENDED RELEASE 12 HOUR completed twice daily - Arias Desai RN FUROSEMIDE 20 MG ORAL TABLET completed once daily - Glendy Escobedo OMEPRAZOLE 20 MG ORAL CAPSULE DELAYED RELEASE completed ONE TAB. DAILY - Dagmar Orellana ASPIRIN 81 MG ORAL TABLET completed ONE TAB. DAILY - Glendy Escobedo CYMBALTA 60 MG ORAL CAPSULE DELAYED RELEASE PARTICLES completed - Fatimah Leija SOCIAL HISTORY Date Observation Value Provider Underweight yes Vee patel MD social history E&M S moking History: Zuri ambrosio is a former smoker. Vee Parish MD social history reviewed E&M revi ewed - no changes required Vee Parish MD cigarette use yes Jeremy Rodriguezward s smoking status Former smoker Jeremy Hatfield rds social history E&M S moking History: Zuri ambrosio is a former smoker. Vee Parish MD social history reviewed E&M revi ewed - no changes required Vee Parish MD smoking, year quit 1999 Glendy lucas cigarette use yes Glendy ochoa smoking status Former smoker Glendy Alpesh duron drug use, illicit, d rug of choice marijuana Luke Arreaga drug use yes Luke Canchola s smoking, year quit 1999 Luke Arreaga cigarette use yes Luke reeves smoking status Former smoker Luke raya social history E&M S moking History: Zuri ambrosio is a former smoker. Luke Arreaga social history reviewed E&M revi ewed - no changes required Luke Arreaga social history E&M S moking History: Zuri ambrosio is a former smoker. Vee Parish MD social history reviewed E&M revi ewed - no changes required Vee Parish MD smoking status Former smoker Vee chow MD smoking, year quit 1999 Glendy Tate astridbell cigarette use yes Glendy Bettsfrieda ll social history reviewed E&M revi ewed - no changes required Vee Parish MD social history E&M S moking History: Zuri ambrosio is a former smoker. Vee Parish MD alcohol use no Kenisha Nely smoking, year quit 1999 Kenisha Brigido s cigarette use yes Kenisha Nely smoking status Former smoker Kenisha Nely social history reviewed E&M revi ewed - no changes required Vee Parish MD social history E&M S moking History: Zuri ambrosio is a former smoker. Vee Parish MD alcohol use no Glendy Bettsbel l smoking, year quit 1999 Glendy Tate lance cigarette use yes Glendy Bettsfrieda ll smoking status Former smoker Glendy Betts duron social history E&M S moking History: Zuri ambrosio is a former smoker. Vee Parish MD cigarette use yes Vee bowie MD smoking status Former smoker Vee chow MD social history reviewed E&M revi ewed - no changes required Vee Parish MD social history reviewed E&M revi ewed - no changes required Vee Parish MD social history E&M S moking History: Zuri ambrosio is a former smoker. Vee Parish MD alcohol use no Dagmar Araujo lauraon smoking, year quit 1999 Dagmar Orellana cigarette use yes Dagmar Duffy enson smoking status Former smoker DagmarMillie Granados number of grandchildren Vee Parish MD social history reviewed E&M revi ewed - no changes required Vee Parish MD social history E&M S moking History: Zuri ambrosio is a former smoker. Vee Parish MD alcohol use no Kenisha Nely smoking, year quit 1999 Kenisha Brigido s cigarette use yes Kenisha Nely smoking status Former smoker Kenisha Nely social history reviewed E&M revi ewed - no changes required Vee Parish MD alcohol use no Dagmar Araujo lauraon smoking, year quit 1999 Dagmar Orellana cigarette use yes Dagmar sofia smoking status Former smoker Dagmar St strange social history E&M S moking History: Zuri ambrosio is a former smoker. Vee Parish MD social history reviewed E&M revi ewed - no changes required Vee Parish MD alcohol use no Fatimah Silva bravoer smoking, year quit 1999 Fatimah mccartney cigarette use yes Fatimah barnes smoking status Former smoker Fatimah myles social history reviewed E&M revi ewed - no changes required Vee Parish MD alcohol use no Fatimah Carminanenfe lder smoking, year quit 1999 Fatimah mccartney cigarette use yes Fatimah barnes smoking status Former smoker Fatimah myles social history reviewed E&M revi ewed - no changes required Vee Parish MD alcohol use no Dagmar Araujo lauraon smoking, year quit 1999 Dagmar Orellana cigarette use yes Dagmar sofia smoking status Former smoker Dagmar Granados social history reviewed E&M revi ewed - no changes required Vee Parish MD smoking, year quit 1999 Dagmar Orellana cigarette use yes Dagmar sofai smoking status Former smoker Dagmar Granados alcohol use no Dagmar Araujo nson alcohol use no Fatimah Rodrigueznfe lder smoking status Former smoker Fatimah Rodriguez nfelder social history E&M S moking History: Zuri ambrosio is a former smoker. Vee Parish MD social history reviewed E&M revi ewed - no changes required Vee Parish MD smoking, year quit 1999 Dagmar Orellana cigarette use yes Dagmar sofia smoking status Former smoker Dagmar Granados MENTAL STATUS Date Observation Value Provider energy level yes Yessenia Tebid energy level yes Yessenia Tebid energy level yes Yessenia Tebid energy level yes Yessenia Tebid energy level yes Yessenia Tebid energy level yes Yessenia Tebid energy level yes Yessenia Tebid energy level yes Yessenia Tebid energy level yes Yessenia Tebid energy level no Yessenia Tebid energy level no Yessenia Tebid FAMILY HISTORY Family Member Condition Father Family History of Co ronary Artery Disease: Father Family History of Hy pertension: Mother Family History of Co ronary Artery Disease: Mother Family History of Hy pertension: Mother Family History of Di abetes: INSURANCE PROVIDERS Payer name Policy type / Coverage type [place] [employer] O [id number] HEALTHCARE AND FAMILY SERVICES Medicaid 0 [id number] ADVANCE DIRECTIVES Name Date DISCUSSED - NO DECISION MADE TREATMENT PLAN Date Name Performer [id number],C, N egative for BUD. Vee Parish MD [id number],C, N egative BUD workup. h as chronic fatigue issuees wokr up with PCP Vee Parish MD [id number],C,telemonitor c [id number] will review Vee Parish MD [id number],C,p rior of takatsubo CMP had echo done recently EF was makenzie Parish MD [id number],S, B P today: 112/68 P rior BP: 125/79 (08/04/2020) Labs Reviewed: C reat: 0.67 (02/03/2020) C hol: 194 (02/03/2020) HDL: 76 (02/03/2020) Vee Parish MD [id number],C,n egative trops n eg ekg for acs changes s he has reproducible pain in mid scapular line and mid axillary line on the right side h as been doing stretching exercises h ad taco soup which was very salty and has had issues with bowels needs probiotics to have a BM. d oubt any issues related to takatsubo since echo prelim LVEF is 50-55% c an flu with me in office in 2-4 wks Vee Parish MD Cardiology: N egative for BUD. Vee Parish MD Cardiology: N egative BUD workup. h as chronic fatigue issuees wokr up with PCP Vee Parish MD Cardiology:telemonitor compelet6 ed will review Vee Parish MD Cardiology:prior of takatsubo CMP had echo done recently EF was makenzie Parish MD Cardiology: B P today: 112/68 P rior BP: 125/79 (08/04/2020) Labs Reviewed: C reat: 0.67 (02/03/2020) C hol: 194 (02/03/2020) HDL: 76 (02/03/2020) Vee Parish MD Cardiology:negative trops n eg ekg for acs changes s he has reproducible pain in mid scapular line and mid axillary line on the right side h as been doing stretching exercises h ad taco soup which was very salty and has had issues with bowels needs probiotics to have a BM. d oubt any issues related to takatsubo since echo prelim LVEF is 50-55% c an flu with me in office in 2-4 wks Vee Parish MD Cardiology follow up : L ast echo EF was low normal. Non smoking cigarettes but occasional marijuana use. Vee Parish MD Cardiology follow up : L VEF improved. Will recheck on echo. Hx. Takosubo. Vee Parish MD Cardiology follow up Vee arias MD Cardiology follow up Vee arias MD Cardiology follow up : N egative BUD workup. Vee Parish MD Cardiology follow up :Recurrent CP. Had prior stress whcih was normal 02/02/2020. K nown Hx. prior Takosubo. Will check echo to see if EF preserved. Her updated medication list for this problem includes: Vasotec 10 Mg Oral Tablet (Enalapril maleate) ..... One tab 1/2 in am and 1 tab in pm Aspirin 81 Mg Oral Tablet (Aspirin) ..... One tab. daily Vee Parish MD TeleHealth:Will need to get blood pressure check done. Will report blood pressure to office. Currently not on Vasotec, will need to check numbers first. H er updated medication list for this problem includes: Vasotec 10 Mg Oral Tablet (Enalapril maleate) ..... One tab 1/2 in am and 1 tab in pm Furosemide 20 Mg Oral Tablet (Furosemide) ..... Once daily Aspirin 81 Mg Oral Tablet (Aspirin) ..... One tab. daily Vee Parish MD TeleHealth:She has e xperiencing occasional palpitations, will arrange to have a tele monitor for two weeks. H er updated medication list for this problem includes: Vasotec 10 Mg Oral Tablet (Enalapril maleate) ..... One tab 1/2 in am and 1 tab in pm Aspirin 81 Mg Oral Tablet (Aspirin) ..... One tab. daily Orders: C omplete Echo (CPT-84376) M obile Cardiac Tele (CPT-92391) S tress Regadenoson (CPT-87394) C OMPREHENSIVE METABOLIC PANEL, W/EGFR (04385) L IPID PANEL (7600) B TYPE NATRIURETIC PEPTIDE (BNP) (17884) H igh Telehealth (CPT-50700) Vee Parish MD TeleHealth:Systolic. New symptoms. Will arrange for her to get echo since she had CMP before and now her Sx are similar. Vee Parish MD TeleHealth:Last echo EF was low normal. Non smoking cigarettes but occasional marijuana use. O rders: C omplete Echo (CPT-87645) M obile Cardiac Tele (CPT-61652) S tress Regadenoson (CPT-53359) C OMPREHENSIVE METABOLIC PANEL, W/EGFR (41331) L IPID PANEL (7600) B TYPE NATRIURETIC PEPTIDE (BNP) (26515) H igh Telehealth (CPT-90154) Vee Parish MD TeleHealth:Will need to get blood pressure check done. Will report blood pressure to office. Currently not on Vasotec, will need to check numbers first. Luke Arreaga TeleHealth:She has e xperiencing occasional palpitations, will arrange to have a tele monitor for two weeks. Luke Arreaga TeleHealth:Last echo EF was low normal. Non smoking cigarettes but occasional marijuana use. Luke Arreaga TeleHealth:Systolic. New symptoms. Will arrange for her to get echo since she had CMP before and now her Sx are similar. Luke Arreaga Cardiology follow up Vee arias MD Cardiology follow up : H er updated medication list for this problem includes: Vasotec 10 Mg Oral Tablet (Enalapril maleate) ..... One tab 1/2 in am and 1 tab in pm Furosemide 20 Mg Oral Tablet (Furosemide) ..... Once daily Aspirin 81 Mg Oral Tablet (Aspirin) ..... One tab. daily Vee Parish MD Cardiology follow up :Echo showed low normal EF, may be attributable to her COPD issues. Does not smoke anymore. Vee Parish MD Cardiology follow up : N egative for BUD. Vee Parish MD Cardiology follow up :Echo 09/2018 Conclusions: 1 . Mild global left ventricular systolic hypokinesis. Normal left ventricular size. Normal left ventricular w all thickness. Normal left ventricular diastolic function. Left ventricular ejection fraction is estimated a t 50 %. 2 . Normal right ventricular size. Normal right ventricular systolic function. 3 . The tricuspid valve is normal in appearance and function. There is mild tricuspid regurgitation. IVC i s normal in size with normal respiratory response. The RA pressure is estimated at 3.0 mmHg. E stimated peak pulmonary artery systolic pressure is 25. 4 . There is trace physiologic mitral valve regurgitation. Vee Parish MD Cardiology follow up : N egative for BUD. Vee Parish MD Cardiology follow up:SR on tele. Occasional PVCs. Vee Parish MD Cardiology follow up :LVEF improved. Will recheck on echo. Hx. Takosubo. Vee Parish MD Cardiology follow up : K stacie Hx. prior Takosubo. Will check echo to see if EF preserved. Her updated medication list for this problem includes: Vasotec 10 Mg Oral Tablet (Enalapril maleate) ..... One tab 1/2 in am and 1 tab in pm Aspirin 81 Mg Oral Tablet (Aspirin) ..... One tab. daily Vee Parish MD Cardiology follow up : H er updated medication list for this problem includes: Vasotec 10 Mg Oral Tablet (Enalapril maleate) ..... One tab 1/2 in am and 1 tab in pm Furosemide 20 Mg Oral Tablet (Furosemide) ..... Once daily Aspirin 81 Mg Oral Tablet (Aspirin) ..... One tab. daily BP today: 122/80 P rior BP: 140/68 (06/10/2018) Labs Reviewed: C reat: 0.9 (04/25/2016) Vee Parish MD Cardiology follow up :Check newberry tid U/S. Vee Parish MD Cardiology follow up :Known Hx. prior Takosubo. Will need repeat stress eval for ischemia since she has CP. Vee Parish MD Cardiology follow up :Will obtain heart monitor for 2 wks. Vee Parish MD Cardiology follow up : B P today: 140/68 P rior BP: 98/60 (12/03/2017) Labs Reviewed: C reat: 0.9 (04/25/2016) Her updated medication list for this problem includes: Vasotec 10 Mg Oral Tablet (Enalapril maleate) ..... One tab 1/2 in am and 1 tab in pm Furosemide 20 Mg Oral Tablet (Furosemide) ..... Once daily Aspirin 81 Mg Oral Tablet (Aspirin) ..... One tab. daily Vee Parish MD Cardiology follow up :Negative O SA workup. Vee Parish MD Cardiology: C ontinues with exertion, could be related to LV function, will check echo. . Normal left ventricular systolic function. Normal left ventricular size. Normal left ventricular wall t hickness. Mitral inflow Doppler demonstrates pseudonormal pattern consistent with diastolic d ysfunction. Left ventricular ejection fraction is estimated at 55 %. 2 . Normal right ventricular size. Normal right ventricular systolic function. 3 . There is trace physiologic mitral valve regurgitation. 4 . There is trace physiologic tricuspid valve regurgitation. 5 . Pulmonic valve leaflets appear structurally normal. Normal pulmonic valve velocities by Doppler. Vee Parish MD Cardiology Vee Parish MD Cardiology:Recent repeat cath no danii. Vee Parish MD Cardiology:Well cont rolled. B P today: 98/60 P rior BP: 117/76 (10/31/2017) Labs Reviewed: C reat: 0.9 (04/25/2016) Vee Parish MD Cardiology: H er updated medication list for this problem includes: Vasotec 10 Mg Oral Tablet (Enalapril maleate) ..... One tab twice. daily Furosemide 20 Mg Oral Tablet (Furosemide) ..... Once daily Aspirin 81 Mg Oral Tablet (Aspirin) ..... One tab. daily Vee Parish MD Cardiology: N egative for BUD. Vee Parish MD Cardiology:Used to b e on coreg before. BPs run low. H er updated medication list for this problem includes: Vasotec 10 Mg Oral Tablet (Enalapril maleate) ..... One tab twice. daily Aspirin 81 Mg Oral Tablet (Aspirin) ..... One tab. daily Vee Parish MD Cardiology:Recurrent episode of chest pain. Does not want to proceed with ECP. Will need to get ruled out and wiull schedule her for heart cath for tomorrow Vee Parish MD Cardiology:Conclusio ns: 1 . Normal left ventricular systolic function. Normal left ventricular size. Normal left ventricular wall t hickness. Mitral inflow Doppler demonstrates pseudonormal pattern consistent with diastolic d ysfunction. Left ventricular ejection fraction is estimated at 55 %. 2 . Normal right ventricular size. Normal right ventricular systolic function. 3 . There is trace physiologic mitral valve regurgitation. 4 . There is trace physiologic tricuspid valve regurgitation. 5 . Pulmonic valve leaflets appear structurally normal. Normal pulmonic valve velocities by Doppler. T here is mild pulmonic regurgitation. E lectronically signed by Vee Parish MD on 09/17/2017 at 9:54 AM Vee Parish MD Cardiology follow up:Negative fo r BUD. Vee Parish MD Cardiology follow up : B P today: 92/60 P rior BP: 124/73 (03/19/2017) Labs Reviewed: C reat: 0.9 (04/25/2016) Her updated medication list for this problem includes: Vasotec 10 Mg Oral Tablet (Enalapril maleate) ..... One tab twice. daily Furosemide 20 Mg Oral Tablet (Furosemide) ..... Once daily Aspirin 81 Mg Oral Tablet (Aspirin) ..... One tab. daily Vee Parish MD Cardiology follow up :Still has occasional chest discomfort and regular nausea. May benefit from ECP. This patient?s angina is disabling and in my opinion is not readily amenable to surgical intervention by PTCA or cardiac bypass because the patient's coronary anatomy is not readily amenable to such procedures. Vee Parish MD Cardiology follow up Vee arias MD Cardiology:Prior sle ep study was negative. TSH WNL. Off beta cassie. Vee Parish MD Cardiology Vee Parish MD Cardiology:Afterload reduction and diuretic. If she has further palpitations we can start a low dose BB. However, it fatigued her when she was Coreg. The following medications were removed from the medication list: Spironolactone 25 Mg Oral Tabs (Spironolactone) ..... 1/2 pill a day Carvedilol 6.25 Mg Oral Tabs (Carvedilol) ..... 1/2 pill twice a day Her updated medication list for this problem includes: Vasotec 10 Mg Tabs (Enalapril maleate) ..... One tab twice. daily Furosemide 20 Mg Tabs (Furosemide) ..... Once daily Aspirin 81 Mg Tabs (Aspirin) ..... One tab. daily Vee Parish MD Cardiology:On Lasix 20mg. Notes some marginal benefit. Vee Parish MD Cardiology:EF was 60 % on last stress test. Recheck echo to evaluate LV function and valve disease. T he following medications were removed from the medication list: Spironolactone 25 Mg Oral Tabs (Spironolactone) ..... 1/2 pill a day Carvedilol 6.25 Mg Oral Tabs (Carvedilol) ..... 1/2 pill twice a day Her updated medication list for this problem includes: Vasotec 10 Mg Tabs (Enalapril maleate) ..... One tab twice. daily Furosemide 20 Mg Tabs (Furosemide) ..... Once daily Aspirin 81 Mg Tabs (Aspirin) ..... One tab. daily Orders: S NOMED-CT: [id number] Current Medications Documented ([facility]-[id number]) 9 9215 HIGH Complex (CPT-06851) C omplete Echo (CPT-25782) Vee Parish MD Cardiology Follow up :Improved EF, will repeat echo to look for LV decompensation again, but she has been taking her medications. Vee Parish MD Cardiology Follow up :Continues with exertion, could be related to LV function, will check echo. Vee Parish MD Cardiology Follow u p:Wear a 30 day telemonitor to evaluate Vee Parish MD Cardiology Follow u p:EF has been improved since the original abnormal cath, she still doesn't feel well. Medications reviewed. Nothing to be changed, unlikely that removing the meds would be appropriate. Especially since she has had prior cardiomyopathy, would prefer to remain on WILL, Beta-Cassie, and diabetic. Labs were reviewed. From April 2016. H er updated medication list for this problem includes: Isosorbide Mononitrate Cr 30 Mg Tb24 (Isosorbide mononitrate) ..... Take 1 tablet 4 times a day. Spironolactone 25 Mg Oral Tabs (Spironolactone) ..... 1/2 pill a day Vasotec 10 Mg Tabs (Enalapril maleate) ..... One tab twice. daily Carvedilol 6.25 Mg Oral Tabs (Carvedilol) ..... 1/2 pill twice a day Furosemide 20 Mg Tabs (Furosemide) ..... Once daily Aspirin 81 Mg Tabs (Aspirin) ..... One tab. daily Vee Parish MD Cardiology Follow u p:Negative s leep study Vee Parish MD Cardiology Follow u p Vee Parish MD Cardiology:GET UPPER EXT ULTRASOUND DONE VENOUS AND ARTHERIAL Vee Parish MD Cardiology:NO BUD PER HOME SLEEP STUDY Vee Parish MD Cardiology: H er updated medication list for this problem includes: Spironolactone 25 Mg Oral Tabs (Spironolactone) ..... Take one tablet daily Vasotec 10 Mg Tabs (Enalapril maleate) ..... One tab twice. daily Carvedilol 6.25 Mg Oral Tabs (Carvedilol) ..... Take one tablet twice daily Furosemide 20 Mg Tabs (Furosemide) ..... Once daily Aspirin 81 Mg Tabs (Aspirin) ..... One tab. daily Vee Parish MD Cardiology: H er updated medication list for this problem includes: Spironolactone 25 Mg Oral Tabs (Spironolactone) ..... Take one tablet daily Vasotec 10 Mg Tabs (Enalapril maleate) ..... One tab twice. daily Carvedilol 6.25 Mg Oral Tabs (Carvedilol) ..... Take one tablet twice daily Ranexa 500 Mg Oral [id number] (Ranolazine) ..... Twice daily Furosemide 20 Mg Tabs (Furosemide) ..... Once daily Aspirin 81 Mg Tabs (Aspirin) ..... One tab. daily Vee Parish MD Cardiology: H er updated medication list for this problem includes: Spironolactone 25 Mg Oral Tabs (Spironolactone) ..... Take one tablet daily Vasotec 10 Mg Tabs (Enalapril maleate) ..... One tab twice. daily Carvedilol 6.25 Mg Oral Tabs (Carvedilol) ..... Take one tablet twice daily Ranexa 500 Mg Oral [id number] (Ranolazine) ..... Twice daily Furosemide 20 Mg Tabs (Furosemide) ..... Once daily Aspirin 81 Mg Tabs (Aspirin) ..... One tab. daily Vee Parish MD Cardiology:WILL GET EXERISE TREADMILL NUCLEAR TO DETERMINE SOB ISSUE AND FUNCTIONAL CAPACITY A RRANGE FOR CARDIAC REHAB [facility] PFT[facility] Her updated medication list for this problem includes: Spironolactone 25 Mg Oral Tabs (Spironolactone) ..... Take one tablet daily Vasotec 10 Mg Tabs (Enalapril maleate) ..... One tab twice. daily Carvedilol 6.25 Mg Oral Tabs (Carvedilol) ..... Take one tablet twice daily Furosemide 20 Mg Tabs (Furosemide) ..... Once daily Aspirin 81 Mg Tabs (Aspirin) ..... One tab. daily Orders: S NOMED-CT: [id number] Current Medications Documented (SCT-[id number]) E KG (CPT-89204) 9 9215 HIGH Complex (CPT-35885) S TR - Nuclear (CPT-77855) B ASIC METABOLIC PANEL W/EGFR (58850) C BC (INCLUDES DIFF/PLT) (2099) T HYROID PANEL WITH TSH, 3RD GENERATION (0544) C BC (H/H, RBC, INDICES, WBC, PLT) (1759) F VC - 91897 (92318) F RC - 78142 (27821) D LCO - 00253 (17012) B TROMMEL TENDER Strip (BNP) Vee Parish MD Cardiology:NEG BUD STUDY Vee Parish MD Cardiology Follow up :get muga to eval lvef before removing lifevest schedule in 2months H er updated medication list for this problem includes: Spironolactone 25 Mg Oral Tabs (Spironolactone) ..... Take one tablet daily Vasotec 10 Mg Tabs (Enalapril maleate) ..... One tab twice. daily Carvedilol 6.25 Mg Oral Tabs (Carvedilol) ..... Take one tablet twice daily Ranexa 500 Mg Oral [id number] (Ranolazine) ..... Twice daily Furosemide 20 Mg Tabs (Furosemide) ..... Once daily Aspirin 81 Mg Tabs (Aspirin) ..... One tab. daily Vee Parish MD Cardiology Follow up :home sleep study Vee Parish MD Cardiology Follow up : H er updated medication list for this problem includes: Spironolactone 25 Mg Oral Tabs (Spironolactone) ..... Take one tablet daily Vasotec 10 Mg Tabs (Enalapril maleate) ..... One tab twice. daily Carvedilol 6.25 Mg Oral Tabs (Carvedilol) ..... Take one tablet twice daily Furosemide 20 Mg Tabs (Furosemide) ..... Once daily Aspirin 81 Mg Tabs (Aspirin) ..... One tab. daily Vee Parish MD Cardiology: H er updated medication list for this problem includes: Enalapril Maleate 2.5 Mg Tabs (Enalapril maleate) ..... One tab. twice daily Carvedilol 3.125 Mg Tabs (Carvedilol) ..... 1 tab twice daily Ranexa 500 Mg Oral [id number] (Ranolazine) ..... Twice daily Furosemide 20 Mg Tabs (Furosemide) ..... Once daily Aspirin 81 Mg Tabs (Aspirin) ..... One tab. daily Vee Parish MD Cardiology: H er updated medication list for this problem includes: Enalapril Maleate 2.5 Mg Tabs (Enalapril maleate) ..... One tab. twice daily Carvedilol 3.125 Mg Tabs (Carvedilol) ..... 1 tab twice daily Furosemide 20 Mg Tabs (Furosemide) ..... Once daily Aspirin 81 Mg Tabs (Aspirin) ..... One tab. daily Vee Parish MD Date Name Complete Echo Stress Regadenoson Complete Echo Complete Echo B TYPE NATRIURETIC P EPTIDE (BNP) LIPID PANEL COMPREHENSIVE METABO LIC PANEL, W/EGFR Mobile Cardiac Tele Complete Echo Complete Echo B TYPE NATRIURETIC P EPTIDE (BNP) LIPID PANEL CardioIQ Advanced Li pid Panel with Inflammation ([facility]) COMPREHENSIVE METABO LIC PANEL, W/EGFR Mobile Cardiac Tele Carotid Duplex Bilat eral STR - Adenosine Cardiac Cath - Left - GC ECP - Medicare Complete Echo ZIO Event Arterial Duplex Uppe r Extremity Bilateral Venous Doppler Bilat eral UE CBC (H/H, RBC, INDIC ES, WBC, PLT) THYROID PANEL WITH T SH, 3RD GENERATION BASIC METABOLIC PANE L W/EGFR B TYPE NATRIURETIC P EPTIDE (BNP) BNP Strip DLCO - 40049 FRC - 47261 FVC - 16345 CBC (H/H, RBC, INDIC ES, WBC, PLT) THYROID PANEL WITH T SH, 3RD GENERATION CBC (INCLUDES DIFF/P LT) BASIC METABOLIC PANE L W/EGFR STR - Nuclear Sleep Study Home Complete Echo HISTORY OF PROCEDURES Procedure Date Procedure Name Provider Procedure Notes S tatus Event Monitor Vee Parish MD completed EKG Vee Parish MD completed EKG Vee Parish MD completed Regadenoson, 4 units Vee arias MD completed Cardiolite, 2 units Vee chow MD completed SPECT Images Vee Parish MD completed Stress EKG Vee Parish MD completed Event Monitor Vee Parish MD completed EKG Vee Parish MD completed EKG Vee Parish MD completed Event Monitor Vee Parish MD completed EKG Vee Parish MD completed EKG Vee Parish MD completed EKG Vee Parish MD completed EKG Vee Parish MD completed EKG Vee Parish MD completed SNOMED-CT: [id number] 124819 Current Medications Documented Vee Parish MD completed EKG Vee Parish MD completed SNOMED-CT: 818620702 525355 Current Medications Documented Vee Parish MD completed Event Monitor Honey Barry completed EKG Vee Parish MD completed SNOMED-CT: [id number] 997865 Current Medications Documented Vee Parish MD completed EKG Vee Parish MD completed SNOMED-CT: 048402311 025243 Current Medications Documented Vee Parish MD completed Stress EKG Coleen Pulliam MD completed Cardiolite, 2 units Vee chow MD completed SPECT Images Coleen Pulliam MD complet ed BLOOD COUNT HEMOGLOBIN Vee Parish MD completed FVC - 32364 Vee Parish MD completed FRC - 24231 Vee Parish MD completed DLCO - 17277 Vee Parish MD completed EKG Vee Parish MD completed SNOMED-CT: 508011170 890262 Current Medications Documented Vee Parish MD completed Ultra Tag RBCs, 1 unit Shanae Andrade MD completed MUGA Vee Parish MD completed MUGA (LVEF) Vee Parish MD completed EKG Vee Parish MD completed SNOMED-CT: 970526377 245463 Current Medications Documented Vee Parish MD completed EKG Vee Parish MD completed SNOMED-CT: 990399482 593953 Current Medications Documented Vee Parish MD completed
[2024-09-01 09:36] VITALS: BP 146/81; PULSE 79; RESP 16; TEMP 36.4; O2SAT 98
--- NOTE | 2024-09-01 09:39 | ED_ITS ---
HPI - Back Pain/Injury General Chief Complaint: Back Pain/Injury Stated Complaint: back pain Time Seen by Provider: 09/01/24 09:09 Source: patient Mode of arrival: ambulatory Limitations: no limitations History of Present Illness HPI Narrative: Patient is a 63-year-old female, with PMH of anxiety and IBS, who presents the ED with report of right lower back pain. Patient reports having intermittent pain throughout her right lower back, radiating through to her right lower abdomen for the past 2 and half weeks. She states pain may have been ongoing for longer. Has been taking Flexeril and ibuprofen without much improvement. Denies significant aggravating or alleviating factors to the pain. Is concerned it is her kidneys. States she went to her primary care doctor yesterday and was given an order for a CT scan of her abdomen/pelvis, but states she cannot wait for results. She denies dysuria or hematuria. Does note an occasional yeast smell with urination. Denies nausea, vomiting, fevers, bowel or bladder incontinence, saddle anesthesia. Related Data Allergies Allergy/AdvReac Type Severity Reaction Status Date / Time No Known Allergies Allergy Verified 09/01/24 10:35 Review of Systems 2 Review of Systems: All systems reviewed & are unremarkable except as noted in HPI. All systems reviewed & are unremarkable except as noted in HPI and below PMFSH Past Medical History Medical History Osteoporosis Anemia IBS (irritable bowel syndrome) Anxiety Asthma Arthritis Bronchitis HTN (hypertension) Surgical History Surgical History Hx of tonsillectomy H/O: hysterectomy History of cholecystectomy Social History Social History Smoking status: Never smoker Alcohol intake: former Substance use: former Substance use type: marijuana Living arrangements: alone Gender identity (if verbalized by the patient): Female Spiritual care concerns: No Exam 2 Narrative: GENERAL: Well appearing, well-nourished, non-toxic, in no acute distress. HEAD: Normocephalic, atraumatic. RESPIRATORY: Airway patent, respirations nonlabored. Clear to auscultation bilaterally, no rales, rhonchi, wheezing. CARDIOVASCULAR: Regular rate and rhythm without murmurs, rubs, or gallops. ABDOMINAL: Soft, minimal tenderness in right lower quadrant, nondistended. Normoactive BS. MUSCULOSKELETAL: Moves all extremities. No gross deformities. Mild tenderness to palpation in right lumbosacral region. No midline lumbar spinal tenderness. No palpable bony deformities. Sensation intact. SKIN: Warm, dry, normal color. NEURO: A&O X3. Speech clear. Cranial nerves II-XII grossly intact. Steady gait. No ataxic movements. PSYCHIATRIC: Anxious. Normal interaction. Course Vital Signs Vital signs: Vital Signs Temperature 97.6 F 09/01/24 09:36 Pulse Rate 79 09/01/24 09:36 Respiratory Rate 16 09/01/24 09:36 Blood Pressure 146/81 H 09/01/24 09:36 Pulse Oximetry 98 09/01/24 09:36 Oxygen Delivery Room Air 09/01/24 09:36 Temperature 97.6 F 09/01/24 09:36 Pulse Rate 79 09/01/24 09:36 Respiratory Rate 16 09/01/24 09:36 Blood Pressure 146/81 H 09/01/24 09:36 Pulse Oximetry 98 09/01/24 09:36 Oxygen Delivery Room Air 09/01/24 09:36 MDM - Back Pain/Injury MDM Narrative Medical decision making narrative: Patient presented to ED with 2.5 week history of intermittent right lower back pain. Concerned for her kidneys. Vital signs are stable upon arrival. Patient is afebrile. In no acute distress. Does appear very anxious. Cbc without leukocytosis or anemia. CMP is unremarkable. Normal kidney function. UA is completely clear. Patient reported intermittent yeast smell with urination. Will give 1 time dose of Diflucan here to treat for potential yeast. CT scan of abdomen/pelvis was obtained and fairly unremarkable. No ureterolithiasis. No other significant surgical abnormalities. CT did show: 1 cm exophytic soft tissue density lesion at the lower pole the left kidney with low signal intensity on prior T2-weighted imaging of the lower spine MR dated 11/08/2020 which favors a proteinaceous/hemorrhagic cyst although renal cell carcinoma. Could consider pre and postcontrast MRI for more definitive determination. Made patient aware of this. Advised she will need to follow-up with her PCP for for evaluation imaging. Discussed that I do not feel this is causing patient's acute pain. Discussed likelihood of musculoskeletal etiology and continued management of such/RICE therapy. Will prescribe muscle relaxers and lidocaine patches for home use. Recommended close follow-up with PCP for further evaluation. Discussed strict return precautions. Patient agrees with plan. Discharged in stable condition. Medical Records Attestation: I reviewed the patient's medical records. Lab Data Attestation: I reviewed the patient's lab results. 09/01/24 09:48 09/01/24 09:48 Labs: Lab Results 09/01/24 Range/Units 09:48 WBC 5.0 (4.5-10.0) K/mm3 RBC 4.53 (4.2-5.4) M/mm3 Hgb 13.7 (12.0-15.0) g/dL Hct 41.6 (37.0-47.0) % MCV 91.8 (80-100) fl MCH 30.2 (26-34) pg MCHC 32.9 (32-36) g/dl RDW 12.6 (11.5-14.5) % Plt Count 259 (150-375) k/mm3 MPV 9.6 (7.4-10.4) fl Immature Gran % (Auto) 0.4 (0-0.5) % Neut % (Auto) 40.5 L (45.5-73.1) % Lymph % (Auto) 44.9 H (18.3-44.2) % Mcdonald % (Auto) 7.2 (2.6-8.5) % Eos % (Auto) 5.6 H (0-4.4) % Baso % (Auto) 1.4 H (0.2-1.2) % Lymph # (Auto) 2.25 (0.9-3.2) K/mm3 Mcdonald # (Auto) 0.4 (0.1-0.6) K/mm3 Eos # (Auto) 0.3 (0-0.3) K/mm3 Baso # (Auto) 0.1 (0.0-0.1) K/mm3 Abs Immat Gran (auto) 0.02 (0.00-0.031) K/mm3 Absolute Neuts (auto) 2.0 (1.3-6.7) K/mm3 Absolute Nucleated RBC 0.000 (0.0-0.012) K/mm3 Nucleated RBC % 0.0 (0.0-0.2) % Sodium 138 (137-145) mmol/L Potassium 4.4 (3.4-5.0) mmol/L Chloride 103 (98-107) mmol/L Carbon Dioxide 27 (22-30) mmol/L Anion Gap 8 (4-12) mmol/L BUN 12 (7-17) mg/dL Creatinine 0.62 L (0.7-1.0) mg/dL Estim Creat Clear Calc 73 ml/min Estimated GFR > 60 (59 - ) Glucose 100 (65-110) mg/dL Calcium 9.2 (8.4-10.2) mg/dL Total Bilirubin 1.5 H (0.2-1.3) mg/dL AST 21 (14-36) U/L ALT 21 (6-35) U/L Alkaline Phosphatase 51 (38-126) U/L Total Protein 7.0 (6.3-8.2) g/dL Albumin 4.3 (3.5-5.1) g/dL Urine Color Yellow (Yellow) Urine Appearance Clear (Clear) Urine pH 5.5 (5.0-9.0) Ur Specific Odd 1.013 (1.001-1.035) Urine Protein Negative (Negative) mg/dL Urine Glucose (UA) Negative (Negative) mg/dL Urine Ketones Negative (Negative) mg/dL Ur Blood (Man) Negative (Negative) Urine Nitrate Negative (Negative) Urine Bilirubin Negative (Negative) Urine Urobilinogen 0.2 (<2.0) mg/dL Leukocyte Esterase Rfl Negative (Negative) KENDRA/UL Imaging Data Attestation: I personally reviewed and interpreted this imaging study as follows: Radiologist's impression: ITS Impressions Abdomen/Pelvis CT 09/01/24 10:21 IMPRESSION: 1. No acute intra-abdominal/pelvic process. 2. Small pericardial effusion. 3. 1 cm exophytic soft tissue density lesion at the lower pole the left kidney with low signal intensity on prior T2-weighted imaging of the lower spine MR dated 11/08/2020 which favors a proteinaceous/hemorrhagic cyst although renal cell carcinoma. Could consider pre and postcontrast MRI for more definitive determination. Discharge Plan Discharge Clinical Impression: Lesion of left [place] kidney Acute right-sided low back pain Qualifiers: Sciatica presence: unspecified whether sciatica present Qualified Code(s): M 54.50 - Low back pain, unspecified Patient Disposition: Home, Self-Care Condition: Stable Instructions: Antibiotic Form, Acute Low Back Pain (ED), Lower Back Exercises (ED) Additional Instructions: Continue Tylenol and Ibuprofen as needed for pain. You may use ice/heat, lidocaine patches to area of pain. Take muscle relaxers as needed and prescribed. Recommend taking these at night as they may cause sedation. Do not drive, operate heavy machinery, drink alcohol while on muscle relaxers as this may cause further sedation. Follow-up with your primary care doctor for further evaluation. Return to the ED if you experience worsening or severe pain, recurrent injury, numbness in groin or legs, going to the bathroom without meaning to, unable to keep down food or drink, or any other symptoms of concern. Your CT scan did show a likely cyst of your left kidney. You will need more imaging of this as an outpatient. Follow-up with your primary care doctor for further evaluation. Patient Language: [place] Citizen Prescriptions: New methocarbamol 750 mg tablet 1,500 mg PO TID PRN (Reason: muscle spasm) Qty: 15 0RF lidocaine 5 % adhesive patch,medicated 1 patch topical DAILY Qty: 15 0RF Rx Instructions: leave on most painful area for up to 12 hrs Follow-up/Referrals: Simone,Stefan Fitch MD [Primary Care Provider] - Time of Disposition: 11:00
[2024-09-01 10:07] LABS: Basophils Absolute Auto 0.1 K/mm3 (0.0-0.1); Basophils Percent Auto 1.4 % (0.2-1.2); Eosinophils Absolute Auto 0.3 K/mm3 (0-0.3); Eosinophils Percent Auto 5.6 % (0-4.4); Hematocrit 41.6 % (37.0-47.0); Hemoglobin 13.7 g/dL (12.0-15.0); Immature Granulocyte Absolute 0.02 K/mm3 (0.00-0.031); Immature Granulocyte Percent A 0.4 % (0-0.5); Lymphocytes Absolute Auto 2.25 K/mm3 (0.9-3.2); Lymphocytes Percent Auto 44.9 % (18.3-44.2); Mean Corpuscular HGB Conc 32.9 g/dl (32-36); Mean Corpuscular Hemoglobin 30.2 pg (26-34); Mean Corpuscular Volume 91.8 fl (80-100); Mean Platelet Volume 9.6 fl (7.4-10.4); Monocytes Absolute Auto 0.4 K/mm3 (0.1-0.6); Monocytes Percent Auto 7.2 % (2.6-8.5); Neutrophils Percent Auto 40.5 % (45.5-73.1); Platelet Count Result 259 k/mm3 (150-375); Red Blood Count 4.53 M/mm3 (4.2-5.4); Red Cell Distribution Width 12.6 % (11.5-14.5)
--- OUTSIDE RECORDS SUMMARY | 2024-09-01 10:09 | XMS_ITS | Clinical Summary ---
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
--- OUTSIDE RECORDS SUMMARY | 2024-09-01 10:09 | XMS_ITS | Referral Summary ---
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
--- OUTSIDE RECORDS SUMMARY | 2024-09-01 10:09 | XMS_ITS | CONTINUITY OF CARE DOCUMENT ---
Author Name wil de la torre Address Unknown Organization [facility] Address [address] [place] [address] Phone [phone] Care Team Providers Care Entry Level Installation Technician Name Role Phone Марина AGUERO, Vee Heredia Unavailable [phone] VICKY AGUERO, JOSE Unavailable JOSE PERRY MD Unavailable [phone] PROBLEMS Condition Status Date Provider Notes Chest [...] In-person encounter Office Visit Vee Parish MD [facility] Chest pain atypical - In-person encounter Office Visit Vee Parish MD [facility] - In-person encounter Office Visit Vee Parish MD TeleHealth - In-person encounter Office Visit Vee Parish MD [facility] - In-person encounter Office Visit Vee Parish MD [facility] - In-person encounter Office Visit Vee Parish MD [facility] Dizziness - In-person encounter Office Visit Vee Parish MD [facility] - In-person encounter Office Visit Vee Parish MD [facility] - In-person encounter Office Visit Vee Parish MD [facility] - In-person encounter Office Visit Vee Parish MD [facility] Family History of Hypertension:Family History of Hypertension:Other symptoms involving cardiovascular systemChest painHTN essentialFatigue - In-person encounter Office Visit Vee Parish MD [facility] - In-person encounter Office Visit Vee Parish MD [facility] Palpitations - In-person encounter Office Visit Vee Parish MD [facility] Edema - generalized - In-person encounter Office Visit Vee Parish MD [facility] - In-person encounter Office Visit Vee Parish MD [facility] Sleep apnea - In-person encounter Office Visit Vee Parish MD [facility] Congestive Heart FailureCHF - systolicShortness of [...] respiratory rate E&M 16 /min Glendy Escobedo weight E&M 152 [lb_av] Glendy Campbel l [...] Parish MD pulse rate 60 /min [facility] oxygen saturation, oximetry 98 % Joseph Christopher blood pressure, diastolic 60 mm[Hg] Rodrick Christopher blood pressure, systolic 98 mm[Hg] Celina Christopher blood pressure, resting Yes Celinar cassandra Christopher respiratory rate E&M 16 /min Joseph Christopher weight E&M 136 [lb_av] [facility] Center[facility] alana height E&M 65 [in_i] [facility] pulse rate #2 68 Yessenia Ralph blood pressure, amos tolchantelle, second observation 86 mm[Hg] [facility] blood pressure, syst olic, second observation 138 mm[Hg] [facility] oxygen saturation, oximetry 98 % [facility] pulse rate 68 /min [facility] blood pressure, diastolic 86 mm[Hg] Vi ctoria Tebid blood pressure, systolic 138 mm[Hg] Manuel [facility]ara [facility] Body [facility] Index (Ratio) 22.10 kg/m2 Gail Jason blood pressure, diastolic 76 mm[Hg] Margarito Orellana blood pressure, systolic 117 mm[Hg] Tiny Orellana oxygen saturation, oximetry 97 % Dagmar Orellana respiratory rate E&M 18 /min Lincoln Orellana pulse rate 64 /min Dagmar Araujo bradley weight E&M 132.8 [lb_av] Dagmar sofia height E&M 65 [in_i] Dagmar Araujo bradley pulse rate #2 60 [facility] blood pressure, amos tolic, second observation 80 mm[Hg] [facility] blood pressure, syst olic, second observation 107 mm[Hg] [facility] oxygen saturation, oximetry 98 % [facility] pulse rate 60 /min [facility] blood pressure, diastolic 80 mm[Hg] [facility] blood pressure, systolic 107 mm[Hg] Manuel tara bid pulse rate #2 59 [facility] blood pressure, amos tolic, second observation 59 mm[Hg] [facility], syst olic, second observation 88 mm[Hg] [facility] oxygen saturation, oximetry 98 % [facility] pulse rate 59 /min [facility] blood pressure, diastolic 59 mm[Hg] [facility], systolic 88 mm[Hg] Manuel tara Tebid pulse rate #2 64 [place] d blood pressure, amos tolic, second observation 69 mm[Hg] [place] d blood pressure, syst olic, second observation 111 mm[Hg] [place] d oxygen saturation, oximetry 98 % [place] pulse rate 64 /min [place] blood pressure, diastolic 69 mm[Hg] Vi ctoria Tebid blood pressure, systolic 111 mm[Hg] Manuel tara Tebid pulse rate #2 64 [place] blood pressure, amos tolic, second observation 79 mm[Hg] [place] blood pressure, syst olic, second observation 101 mm[Hg] [facility] oxygen saturation, oximetry 98 % [place] pulse rate 64 /min [place] blood pressure, diastolic 79 mm[Hg] Vi [facility] Ted blood pressure, systolic 101 mm[Hg] Manuel tara Ted pulse rate #2 76 [place] blood pressure, amos tolic, second observation 69 mm[Hg] [place] d blood pressure, syst olic, second observation 112 mm[Hg] [facility], oximetry 98 % [place] pulse rate 76 /min [place] d blood pressure, diastolic 69 mm[Hg] Vi ctoria Tebid blood pressure, systolic 112 mm[Hg] Manuel simmonsia Tebid pulse rate #2 61 [place] d blood pressure, amos tolic, second observation 74 mm[Hg] [place] d blood pressure, syst olic, second observation 122 mm[Hg] [facility], oximetry 98 % [facility] pulse rate 61 /min [facility], diastolic 74 mm[Hg] [facility] T[facility]id blood pressure, systolic 122 mm[Hg] Manuel tara bid pulse rate #2 65 [place] blood pressure, amos tolic, second observation 75 mm[Hg] [facility] blood pressure, syst olic, second observation 117 mm[Hg] [facility] oxygen saturation, oximetry 98 % [place] pulse rate 65 /min [place] blood pressure, diastolic 75 mm[Hg] Vi [facility] d blood pressure, systolic 117 mm[Hg] Manuel [facility]2 67 [place] blood pressure, amos tolic, second observation 72 mm[Hg] [facility] blood pressure, syst olic, second observation 105 mm[Hg] [facility] oxygen saturation, oximetry 98 % [place] pulse rate 67 /min [place] blood pressure, diastolic 72 mm[Hg] Vi [facility] d blood pressure, systolic 105 mm[Hg] Manuel tara d pulse rate #2 60 [facility] blood pressure, amos tolic, second observation 76 mm[Hg] [facility] blood pressure, syst olic, second observation 115 mm[Hg] [facility] oxygen saturation, oximetry 98 % [place] pulse rate 60 /min [place] blood pressure, diastolic 76 mm[Hg] Vi [facility] d blood pressure, systolic 115 mm[Hg] Manuel taar d pulse rate #2 63 [facility] blood pressure, amos tolic, second observation 71 mm[Hg] [facility] blood pressure, syst olic, second observation 120 mm[Hg] [facility] saturation, oximetry 98 % Yessenia Tebid pulse rate 63 /min Yessenia Tebid blood pressure, diastolic 71 mm[Hg] Shavonne tirado Tebid blood pressure, systolic 120 mm[Hg] [...] LinkLog[employer] 0-149 cholesterol, serum 194 mg/dL [employer] 996-250 7521/07 /16 alanine aminotransferase (SGPT), serum 14 1/L [...] [employer] 3.5-5.2 sodium, serum 143 mmol/L [employer] 323-110 4979/07 /16 urea nitrogen/creatinine ratio, serum 31 [employer]Log[employer] [...] revi ewed - no changes required Vee Parsih MD alcohol use no Dagmar Araujo lauraon [...] sofia smoking status Former smoker Dagmar Granados alcohol [...] Payer name Policy type / Coverage type [place] [employer] libertarian ID [employer] O [id number] HE[employer] AND FAMILY SERVICES Medicaid 0 [id number] ADVANCE DIRECTIVES Name Date DISCUSSED - NO DECISION MADE TREATMENT PLAN Date Name Performer [id number],C, N egative for BUD. Vee Parish MD [id number],C, N egative BUD workup. h as chronic fatigue issuees wokr up with PCP Vee Parish MD [id number],C,telemonitor c [id number] will review Vee Parish MD [id number],C,p rior of [place] CMP had echo done recently EF was makenzie Parish MD [id number],S, B P today: 112/68 P rior BP: 125/79 (08/04/2020) Labs Reviewed: C reat: 0.67 (02/03/2020) C hol: 194 (02/03/2020) HDL: 76 (02/03/2020) Vee Parish MD [id number],C,n egative trops n eg ekg for acs [...] One tab. daily Orders: C omplete Echo (CPT-65935) M obile Cardiac Tele (CPT-23180) S tress Regadenoson (CPT-90182) C OMPREHENSIVE METABOLIC PANEL, W/EGFR (36474) L IPID PANEL (7600) B TYPE NATRIURETIC PEPTIDE (BNP) (07445) H igh Telehealth (CPT-51130) Vee Parish MD TeleHealth:Systolic. New symptoms. Will arrange for her to get echo since she had CMP before and now her Sx are similar. Vee Parish MD TeleHealth:Last echo EF was low normal. Non smoking cigarettes but occasional marijuana use. O rders: C omplete Echo (CPT-96260) M obile Cardiac Tele (CPT-10830) S tress Regadenoson (CPT-25264) C OMPREHENSIVE METABOLIC PANEL, W/EGFR (28875) L IPID PANEL (7600) B TYPE NATRIURETIC PEPTIDE (BNP) (91921) H igh Telehealth (CPT-45797) Vee Parish MD TeleHealth:Will need to get [...] ..... One tab. daily Orders: S NOMED-CT: [id number] Current Medications Documented ([facility]-[id number]) 9 9215 HIGH Complex (CPT-94914) C omplete Echo (CPT-70949) Vee Parish MD Cardiology Follow up :Improved [...] tablet twice daily Ranexa 500 Mg Oral [id number]-tny (Ranolazine) ..... Twice daily Furosemide 20 Mg [...] tablet twice daily Ranexa 500 Mg Oral [id number]-hdt (Ranolazine) ..... Twice daily Furosemide 20 Mg Tabs (Furosemide) ..... Once daily Aspirin 81 Mg Tabs (Aspirin) ..... One tab. daily Vee Parish MD Cardiology:WILL GET EXERISE TREADMILL NUCLEAR TO DETERMINE SOB ISSUE AND FUNCTIONAL CAPACITY A RRANGE FOR CARDIAC REHAB C [facility] PFTS Her updated medication list for this problem includes: Spironolactone 25 Mg Oral Tabs (Spironolactone) ..... Take one tablet daily Vasotec 10 Mg Tabs (Enalapril maleate) ..... One tab twice. daily Carvedilol 6.25 Mg Oral Tabs (Carvedilol) ..... Take one tablet twice daily Furosemide 20 Mg Tabs (Furosemide) ..... Once daily Aspirin 81 Mg Tabs (Aspirin) ..... One tab. daily Orders: S NOMED-CT: [id number] Current Medications Documented (SCT-[id number]) E KG (CPT-14799) 9 9215 HIGH Complex (CPT-34489) S TR - Nuclear (CPT-93166) B ASIC METABOLIC PANEL W/EGFR (56561) C BC (INCLUDES DIFF/PLT) (9799) T HYROID PANEL WITH TSH, 3RD GENERATION (3444) C BC (H/H, RBC, INDICES, WBC, PLT) (1759) F VC - 65463 (57756) F RC - 05382 (65585) D LCO - 60440 (87056) B REGISTERED NURSE OBSTETRICS Strip (BNP) Vee Parish MD Cardiology:NEG BUD [...] tablet twice daily Ranexa 500 Mg Oral [id number]-vwu (Ranolazine) ..... Twice daily Furosemide 20 Mg [...] tab twice daily Ranexa 500 Mg Oral Kk22z-xop (Ranolazine) ..... Twice daily Furosemide 20 Mg [...] P EPTIDE (BNP) BNP Strip DLCO - 69331 FRC - 14650 FVC - 34265 CBC (H/H, RBC, INDIC ES, WBC, PLT) [...] completed EKG Vee Parish MD completed SNOMED-CT: [id number] 896359 Current Medications Documented Vee Parish MD completed EKG Vee Parish MD completed SNOMED-CT: 885840137 000160 Current Medications Documented Vee Parish MD completed Event Monitor Honey Barry completed EKG Vee Parish MD completed SNOMED-CT: 284021912 972935 Current Medications Documented Vee Parish MD completed EKG Vee Parish MD completed SNOMED-CT: 014882320 017652 Current Medications Documented Vee Parish MD completed Stress EKG Coleen Pulliam MD completed Cardiolite, 2 units Vee chow MD completed SPECT Images Coleen Pulliam MD complet ed BLOOD COUNT HEMOGLOBIN Vee Parish MD completed FVC - 70902 Vee Parish MD completed FRC - 94461 Vee Parish MD completed DLCO - 37843 Vee Parish MD completed EKG Vee Parish MD completed SNOMED-CT: 050916652 846281 Current Medications Documented Vee Parish MD completed Ultra Tag RBCs, 1 unit Shanae Andrade MD completed MUGA Vee Parish MD completed MUGA (LVEF) Vee Parish MD completed EKG Vee Parish MD completed SNOMED-CT: 858876777 872921 Current Medications Documented Vee Parish MD completed EKG Vee Parish MD completed SNOMED-CT: 550750297 159740 Current Medications Documented Vee Parish MD completed
--- OUTSIDE RECORDS SUMMARY | 2024-09-01 10:09 | XMS_ITS | Clinical Summary ---
Author Organization [facility] Address [address] [place] [address] Phone Care Team Providers Care Network Program Manager Name Role Phone Danilo Nichols MD Primary Care Provider [phone] Encounters Date Type Department Care Team Description 06/25/2024 1:30 PM FBI PROFILER Clinical Support [facility] [address] [place] [address] Danilo Nichols MD Osteoporosis, unspecified [...] Comments Blood Pressure 109/66 06/25/2024 1:38 PM FBI PROFILER Pulse 58 06/25/2024 1:38 PM FBI PROFILER Temperature 36.4 C (97.5 F) 06/25/2024 1:38 PM FBI PROFILER Respiratory Rate 18 06/25/2024 1:38 PM FBI PROFILER Oxygen Saturation 99% 06/25/2024 1:38 PM FBI PROFILER Inhaled Oxygen Concentration - - Weight - [...] topic Insurance MEDICARE C [facility] Care Teams Network Program Manager Relationship Specialty Start Date End Date Danilo Nichols MD [address] [address] PCP - General Internal Medicine 06/25/24
--- OUTSIDE RECORDS SUMMARY | 2024-09-01 10:10 | XMS_ITS | Patient Health Summary ---
Author Organization [facility] Address [address] [place] [address] Care Team Providers Care Bottom Scrubber Name Role Phone Gregorio Taveras MD Primary Care Provider [phone] Note from [facility],non-owned Affiliates and Associated Physician Practices is amultiple site organization consisting of ambulatory clinics and hospital sitesin [place], [place], [place] and [place]. This disclosure is being madepursuant to the Care Everywhere program and may not contain all information available regarding this patient. Last updated 18.[facility] Allergies No known active allergies Medications * Be aware that medications may not be up to date on this document. Alwaysverify current medications with the patient. * Aspirin (ASPIR-LOW) 81 MG Take 1 tablet every day by oral route. * ENALAPRIL MALEATE PO * ondansetron, disintegrating, (ZOFRAN ODT) 4 MG tablet(Started 10/28/2018) * ALBUTEROL IN * fluticasone propionate (FLONASE) 50 MCG/ACT nasal spray [place] 2 sprays into each nostril once daily * triamcinolone acetonide (KENALOG) 0.1 % ointment Apply to affected area 2 times daily as needed * Simethicone (GAS-X) 125 MG chew tablet Take 1 tablet by mouth 3 times daily as needed * omeprazole (PRILOSEC) 40 MG capsule Take 40 mg by mouth daily before breakfast * Multiple Vitamins-Minerals (MULTIVITAMIN GUMMIES WOMENS PO) Take 1 tablet by mouth once daily * DULoxetine (CYMBALTA) 60 MG capsule(Started 12/01/2018) Take 60 mg by mouth once daily * docusate sodium (COLACE) 100 MG capsule Take 1 capsule by mouth once daily as needed * Multiple Vitamins-Minerals (MULTIVITAMIN ADULT EXTRA C PO) multivitamin once daily * meloxicam (MOBIC) 7.5 MG tablet(Started 03/15/2020) Take 1 tablet by mouth once daily Reasons: Joint Damage causing Pain and Loss of Function Active Problems No known active problems Social History Tobacco Use Types Packs/Day Years Used Date Smoking Tobacco: Former Cigarettes Q uit: 1999 Smokeless Tobacco: Never Tobacco Cessation:Counseling Given: No Comments:previous 2ppd for 20 yrs Alcohol Use Standard Drinks/Week Comments No 0 (1 standard drink = 0.6 oz pur e alcohol) rare Sex and Gender Information Value Date Recorded Sex Assigned at Not on file Gender Identity Not on file Sexual Orientation Not on file Last Filed Vital Signs Vital Sign Reading Time Taken Comments Blood Pressure 100/82 03/15/2020 2:28 PM CDT Pulse 72 12/28/2018 1:56 PM CDT Temperature 36 C (96.8 F) 03/15/2020 2:28 PM CDT Respiratory Rate 16 04/11/2018 7:59 AM CDT Oxygen Saturation 100% 04/11/2018 7:59 AM CDT Inhaled Oxygen Concentration - - Weight 64.4 kg (142 lb) 03/15/2020 2:28 PM CDT Height 165.1 cm (5' 5 ) 03/15/2020 2:28 PM CDT Body Mass Index 23.63 03/15/2020 2:28 PM CDT Procedures * XR SI JOINTS 3VW OR MORE(Performed 10/29/2018) Performed for Arthralgia, unspecified joint, History of esophageal dilatation, Dyspnea, unspecifiedtype, Family history of psoriatic arthritis * XR LUMBAR SPINE 4VW OR MORE(Performed 10/29/2018) Performed for Arthralgia, unspecified joint, History of esophageal dilatation, Dyspnea, unspecifiedtype, Family history of psoriatic arthritis * XR CERVICAL SPINE 4 OR 5VW(Performed 10/29/2018) Performed for Arthralgia, unspecified joint, History of esophageal dilatation, Dyspnea, unspecifiedtype, Family history of psoriatic arthritis * XR FOOT RIGHT 3VW OR MORE(Performed 10/29/2018) Performed for Arthralgia, unspecified joint, History of esophageal dilatation, Dyspnea, unspecifiedtype, Family history of psoriatic arthritis * XR FOOT LEFT 3VW OR MORE(Performed 10/29/2018) Performed for Arthralgia, unspecified joint, History of esophageal dilatation, Dyspnea, unspecifiedtype, Family history of psoriatic arthritis * XR HAND RIGHT 3VW OR MORE(Performed 10/29/2018) Performed for Arthralgia, unspecified joint, History of esophageal dilatation, Dyspnea, unspecifiedtype, Family history of psoriatic arthritis * XR HAND LEFT 3VW OR MORE(Performed 10/29/2018) Performed for Arthralgia, unspecified joint, History of esophageal dilatation, Dyspnea, unspecifiedtype, Family history of psoriatic arthritis * URINALYSIS W/MICROSCOPIC NO CULTURE(Performed 10/29/2018) Performed for Arthralgia, unspecified joint, History of esophageal dilatation, Dyspnea, unspecifiedtype, Family history of psoriatic arthritis * RNA POLYMERASE III ANTIBODY IGG(Performed 10/29/2018) Performed for Arthralgia, unspecified joint, History of esophageal dilatation, Dyspnea, unspecifiedtype, Family history of psoriatic arthritis * PM/SCL-100 ANTIBODY IGG(Performed 10/29/2018) Performed for Arthralgia, unspecified joint, History of esophageal dilatation, Dyspnea, unspecifiedtype, Family history of psoriatic arthritis * CENTROMERE B ANTIBODIES(Performed 10/29/2018) Performed for Arthralgia, unspecified joint, History of esophageal dilatation, Dyspnea, unspecifiedtype, Family history of psoriatic arthritis * SCLERODERMA 70 (SCL) ANTIBODY(Performed 10/29/2018) Performed for Arthralgia, unspecified joint, History of esophageal dilatation, Dyspnea, unspecifiedtype, Family history of psoriatic arthritis * HLA TYPING B27(Performed 10/29/2018) Performed for Arthralgia, unspecified joint, History of esophageal dilatation, Dyspnea, unspecifiedtype, Family history of psoriatic arthritis * DNA ANTIBODY DS CRITHIDIA TITER(Performed 10/29/2018) Performed for Arthralgia, unspecified joint, History of esophageal dilatation, Dyspnea, unspecifiedtype, Family history of psoriatic arthritis * DNA ANTIBODY DOUBLE STRANDED(Performed 10/29/2018) Performed for Arthralgia, unspecified joint, History of esophageal dilatation, Dyspnea, unspecifiedtype, Family history of psoriatic arthritis * DERRICK BLOOD SCREEN W/REFLEX TITER(Performed 10/29/2018) Performed for Arthralgia, unspecified joint, History of esophageal dilatation, Dyspnea, unspecifiedtype, Family history of psoriatic arthritis * SS-B (SJOGREN'S) ANTIBODY(Performed 10/29/2018) Performed for Arthralgia, unspecified joint, History of esophageal dilatation, Dyspnea, unspecifiedtype, Family history of psoriatic arthritis * SS-A (SJOGREN'S) ANTIBODY(Performed 10/29/2018) Performed for Arthralgia, unspecified joint, History of esophageal dilatation, Dyspnea, unspecifiedtype, Family history of psoriatic arthritis * HEARD (SM) ANTIBODY ADAMA(Performed 10/29/2018) Performed for Arthralgia, unspecified joint, History of esophageal dilatation, Dyspnea, unspecifiedtype, Family history of psoriatic arthritis * DOUGH CUTTER ANTIBODY(Performed 10/29/2018) Performed for Arthralgia, unspecified joint, History of esophageal dilatation, Dyspnea, unspecifiedtype, Family history of psoriatic arthritis * RHEUMATOID FACTOR BLOOD QUANTITATIVE(Performed 10/29/2018) Performed for Arthralgia, unspecified joint, History of esophageal dilatation, Dyspnea, unspecifiedtype, Family history of psoriatic arthritis * VITAMIN D 25-HYDROXY(Performed 10/29/2018) Performed for Arthralgia, unspecified joint, History of esophageal dilatation, Dyspnea, unspecifiedtype, Family history of psoriatic arthritis * ERYTHROCYTE SEDIMENTATION RATE(Performed 10/29/2018) Performed for Arthralgia, unspecified joint, History of esophageal dilatation, Dyspnea, unspecifiedtype, Family history of psoriatic arthritis * C-REACTIVE PROTEIN(Performed 10/29/2018) Performed for Arthralgia, unspecified joint, History of esophageal dilatation, Dyspnea, unspecifiedtype, Family history of psoriatic arthritis * COMPREHENSIVE METABOLIC PANEL(Performed 10/29/2018) Performed for Arthralgia, unspecified joint, History of esophageal dilatation, Dyspnea, unspecifiedtype, Family history of psoriatic arthritis * CBC W AUTO DIFFERENTIAL(Performed 10/29/2018) Performed for Arthralgia, unspecified joint, History of esophageal dilatation, Dyspnea, unspecifiedtype, Family history of psoriatic arthritis * CK BLOOD(Performed 10/29/2018) Performed for Arthralgia, unspecified joint, History of esophageal dilatation, Dyspnea, unspecifiedtype, Family history of psoriatic arthritis * LDH BLOOD(Performed 10/29/2018) Performed for Arthralgia, unspecified joint, History of esophageal dilatation, Dyspnea, unspecifiedtype, Family history of psoriatic arthritis * ALDOLASE(Performed 10/29/2018) Performed for Arthralgia, unspecified joint, History of esophageal dilatation, Dyspnea, unspecifiedtype, Family history of psoriatic arthritis * CYCLIC CITRULLINATED PEPTIDE(CCP) AB IGG(Performed 10/29/2018) Performed for Arthralgia, unspecified joint, History of esophageal dilatation, Dyspnea, unspecifiedtype, Family history of psoriatic arthritis * RPR W REFLEX TO TITER+CONFIRM(Performed 09/23/2018) Performed for Screen for STD (sexually transmitted disease) * HEPATITIS C AB W/RFLX TO HCV RNA QN PCR(Performed 09/23/2018) Performed for Screen for STD (sexually transmitted disease) * HEPATITIS B SURFACE ANTIGEN W RFLX CONFIRMATION(Performed 09/23/2018) Performed for Screen for STD (sexually transmitted disease) * HIV-1 HIV-2 ANTIGEN/ANTIBODY W RFLX(Performed 09/23/2018) Performed for Screen for STD (sexually transmitted disease) * US BREAST LEFT LTD(Performed 09/21/2018) Performed for Breast lump * MAMMO BILAT SCREENING(Performed 08/25/2018) Performed for Visit for screening mammogram * C-REACTIVE PROTEIN(Performed 04/11/2018) * ERYTHROCYTE SEDIMENTATION RATE(Performed 04/11/2018) * COMPREHENSIVE METABOLIC PANEL(Performed 04/11/2018) * CBC W AUTO DIFFERENTIAL(Performed 04/11/2018) * MAMMO BILAT SCREENING(Performed 11/25/2017) Performed for Screening breast examination Results * XR FOOT RIGHT 3VW OR MORE (10/29/2018 11:27 AM CDT) Anatomical Region Laterality Modality Ankle / Foot Radiographic Viviana ging 10/29/2018 12:1 6 PM CDT Impressions 10/29/2018 12:19 PM CDT IMPRESSION: 1. Right and left hands: Mild osteoarthritis. 2. Right and left feet: No arthritis. 3. Sacroiliac joints: No arthritis. This report was electronically signed by NEIL ROBLEDO MD on 10/29/2018 12:19 PM . Narrative 10/29/2018 12:19 PM CDT Exam: 1.XR HAND RIGHT 3VW OR MORE, 2.XR SI JOINTS 3VW OR MORE, 3.XR FOOT RIGHT 3VW OR MORE, 4.XR FOOT LEFT 3VW OR MORE, 5.XR HAND LEFT 3VW OR MORE History: 58 yo with diffuse arthralgia , eval for inflammatory dx Comparison: None. Findings: Right hand: No fracture or dislocation is seen. There is mild osteoarthritis is several interphalangeal joints. The metacarpophalangeal joint spaces are normal. No erosions are seen. Bone density and the soft tissues appear normal. Left hand: No fracture or dislocation is present. Mild osteoarthritis is seen at several interphalangeal joints and the first carpometacarpal joint. The metacarpophalangeal joint spaces are normal. No erosions are seen. Bone density appears normal. The soft tissues are normal. Right foot: No fracture or dislocation is present. The joint spaces are normal. No erosions are seen. Bone density appears normal. The soft tissues are normal. A plantar calcaneal spur is visible. Left foot: No fracture or dislocation is present. The joint spaces are normal. No erosions are seen. Bone density appears normal. The soft tissues are normal. A plantar calcaneal spur is noted. Sacroiliac joints: No erosion, widening, sclerosis, narrowing, or ankylosis is seen on either side. No fracture is present. The pubic symphysis is normal. Procedure Note Neil Robledo MD - 10/29/2018 Exam: 1.XR HAND RIGHT 3VW OR MORE, 2.XR SI JOINTS 3VW OR MORE, 3.XR FOOT RIGHT 3VW OR MORE, 4.XR FOOT LEFT 3VW OR MORE, 5.XR HAND LEFT 3VW OR MORE History: 58 yo with diffuse arthralgia , eval for inflammatory dx Comparison: None. Findings: Right hand: No fracture or dislocation is seen. There is mild osteoarthritis is several interphalangeal joints. The metacarpophalangeal joint spaces are normal. No erosions are seen. Bone density and the soft tissues appear normal. Left hand: No fracture or dislocation is present. Mild osteoarthritis is seen at several interphalangeal joints and the first carpometacarpal joint. The metacarpophalangeal joint spaces are normal. No erosions are seen. Bone density appears normal. The soft tissues are normal. Right foot: No fracture or dislocation is present. The joint spaces are normal. No erosions are seen. Bone density appears normal. The soft tissues are normal. A plantar calcaneal spur is visible. Left foot: No fracture or dislocation is present. The joint spaces are normal. No erosions are seen. Bone density appears normal. The soft tissues are normal. A plantar calcaneal spur is noted. Sacroiliac joints: No erosion, widening, sclerosis, narrowing, or ankylosis is seen oneither side. No fracture is present. The pubic symphysis is normal. IMPRESSION: 1. Right and left hands: Mild osteoarthritis. 2. Right and left feet: No arthritis. 3. Sacroiliac joints: No arthritis. This report was electronically signed by NEIL ROBLEDO MD on10/29/2018 12:19 PM . Chelle Cronin MD DIAGNOSTIC IMAGING O RDERABLES * XR FOOT LEFT 3VW OR MORE (10/29/2018 11:27 AM CDT) Anatomical Region Laterality Modality Ankle / Foot Radiographic Viviana ging 10/29/2018 12:1 6 PM CDT Impressions 10/29/2018 12:19 PM CDT IMPRESSION: 1. Right and left hands: Mild osteoarthritis. 2. Right and left feet: No arthritis. 3. Sacroiliac joints: No arthritis. This report was electronically signed by NEIL ROBLEDO MD on 10/29/2018 12:19 PM . Narrative 10/29/2018 12:19 PM CDT Exam: 1.XR HAND RIGHT 3VW OR MORE, 2.XR SI JOINTS 3VW OR MORE, 3.XR FOOT RIGHT 3VW OR MORE, 4.XR FOOT LEFT 3VW OR MORE, 5.XR HAND LEFT 3VW OR MORE History: 58 yo with diffuse arthralgia , eval for inflammatory dx Comparison: None. Findings: Right hand: No fracture or dislocation is seen. There is mild osteoarthritis is several interphalangeal joints. The metacarpophalangeal joint spaces are normal. No erosions are seen. Bone density and the soft tissues appear normal. Left hand: No fracture or dislocation is present. Mild osteoarthritis is seen at several interphalangeal joints and the first carpometacarpal joint. The metacarpophalangeal joint spaces are normal. No erosions are seen. Bone density appears normal. The soft tissues are normal. Right foot: No fracture or dislocation is present. The joint spaces are normal. No erosions are seen. Bone density appears normal. The soft tissues are normal. A plantar calcaneal spur is visible. Left foot: No fracture or dislocation is present. The joint spaces are normal. No erosions are seen. Bone density appears normal. The soft tissues are normal. A plantar calcaneal spur is noted. Sacroiliac joints: No erosion, widening, sclerosis, narrowing, or ankylosis is seen on either side. No fracture is present. The pubic symphysis is normal. Procedure Note Neil Robledo MD - 10/29/2018 Exam: 1.XR HAND RIGHT 3VW OR MORE, 2.XR SI JOINTS 3VW OR MORE, 3.XR FOOT RIGHT 3VW OR MORE, 4.XR FOOT LEFT 3VW OR MORE, 5.XR HAND LEFT 3VW OR MORE History: 58 yo with diffuse arthralgia , eval for inflammatory dx Comparison: None. Findings: Right hand: No fracture or dislocation is seen. There is mild osteoarthritis is several interphalangeal joints. The metacarpophalangeal joint spaces are normal. No erosions are seen. Bone density and the soft tissues appear normal. Left hand: No fracture or dislocation is present. Mild osteoarthritis is seen at several interphalangeal joints and the first carpometacarpal joint. The metacarpophalangeal joint spaces are normal. No erosions are seen. Bone density appears normal. The soft tissues are normal. Right foot: No fracture or dislocation is present. The joint spaces are normal. No erosions are seen. Bone density appears normal. The soft tissues are normal. A plantar calcaneal spur is visible. Left foot: No fracture or dislocation is present. The joint spaces are normal. No erosions are seen. Bone density appears normal. The soft tissues are normal. A plantar calcaneal spur is noted. Sacroiliac joints: No erosion, widening, sclerosis, narrowing, or ankylosis is seen oneither side. No fracture is present. The pubic symphysis is normal. IMPRESSION: 1. Right and left hands: Mild osteoarthritis. 2. Right and left feet: No arthritis. 3. Sacroiliac joints: No arthritis. This report was electronically signed by NEIL ROBLEDO MD on10/29/2018 12:19 PM . Chelle Cronin MD DIAGNOSTIC IMAGING O RDERABLES * XR HAND RIGHT 3VW OR MORE (10/29/2018 11:27 AM CDT) Anatomical Region Laterality Modality Wrist / Hand Radiographic Viviana ging 10/29/2018 12:1 6 PM CDT Impressions 10/29/2018 12:19 PM CDT IMPRESSION: 1. Right and left hands: Mild osteoarthritis. 2. Right and left feet: No arthritis. 3. Sacroiliac joints: No arthritis. This report was electronically signed by NEIL ROBLEDO MD on 10/29/2018 12:19 PM . Narrative 10/29/2018 12:19 PM CDT Exam: 1.XR HAND RIGHT 3VW OR MORE, 2.XR SI JOINTS 3VW OR MORE, 3.XR FOOT RIGHT 3VW OR MORE, 4.XR FOOT LEFT 3VW OR MORE, 5.XR HAND LEFT 3VW OR MORE History: 58 yo with diffuse arthralgia , eval for inflammatory dx Comparison: None. Findings: Right hand: No fracture or dislocation is seen. There is mild osteoarthritis is several interphalangeal joints. The metacarpophalangeal joint spaces are normal. No erosions are seen. Bone density and the soft tissues appear normal. Left hand: No fracture or dislocation is present. Mild osteoarthritis is seen at several interphalangeal joints and the first carpometacarpal joint. The metacarpophalangeal joint spaces are normal. No erosions are seen. Bone density appears normal. The soft tissues are normal. Right foot: No fracture or dislocation is present. The joint spaces are normal. No erosions are seen. Bone density appears normal. The soft tissues are normal. A plantar calcaneal spur is visible. Left foot: No fracture or dislocation is present. The joint spaces are normal. No erosions are seen. Bone density appears normal. The soft tissues are normal. A plantar calcaneal spur is noted. Sacroiliac joints: No erosion, widening, sclerosis, narrowing, or ankylosis is seen on either side. No fracture is present. The pubic symphysis is normal. Procedure Note Neil Robledo MD - 10/29/2018 Exam: 1.XR HAND RIGHT 3VW OR MORE, 2.XR SI JOINTS 3VW OR MORE, 3.XR FOOT RIGHT 3VW OR MORE, 4.XR FOOT LEFT 3VW OR MORE, 5.XR HAND LEFT 3VW OR MORE History: 58 yo with diffuse arthralgia , eval for inflammatory dx Comparison: None. Findings: Right hand: No fracture or dislocation is seen. There is mild osteoarthritis is several interphalangeal joints. The metacarpophalangeal joint spaces are normal. No erosions are seen. Bone density and the soft tissues appear normal. Left hand: No fracture or dislocation is present. Mild osteoarthritis is seen at several interphalangeal joints and the first carpometacarpal joint. The metacarpophalangeal joint spaces are normal. No erosions are seen. Bone density appears normal. The soft tissues are normal. Right foot: No fracture or dislocation is present. The joint spaces are normal. No erosions are seen. Bone density appears normal. The soft tissues are normal. A plantar calcaneal spur is visible. Left foot: No fracture or dislocation is present. The joint spaces are normal. No erosions are seen. Bone density appears normal. The soft tissues are normal. A plantar calcaneal spur is noted. Sacroiliac joints: No erosion, widening, sclerosis, narrowing, or ankylosis is seen oneither side. No fracture is present. The pubic symphysis is normal. IMPRESSION: 1. Right and left hands: Mild osteoarthritis. 2. Right and left feet: No arthritis. 3. Sacroiliac joints: No arthritis. This report was electronically signed by NEIL ROBLEDO MD on10/29/2018 12:19 PM . Chelle Cronin MD DIAGNOSTIC IMAGING O RDERABLES * XR HAND LEFT 3VW OR MORE (10/29/2018 11:27 AM CDT) Anatomical Region Laterality Modality Wrist / Hand Radiographic Viviana ging 10/29/2018 12:1 6 PM CDT Impressions 10/29/2018 12:19 PM CDT IMPRESSION: 1. Right and left hands: Mild osteoarthritis. 2. Right and left feet: No arthritis. 3. Sacroiliac joints: No arthritis. This report was electronically signed by NEIL ROBLEDO MD on 10/29/2018 12:19 PM . Narrative 10/29/2018 12:19 PM CDT Exam: 1.XR HAND RIGHT 3VW OR MORE, 2.XR SI JOINTS 3VW OR MORE, 3.XR FOOT RIGHT 3VW OR MORE, 4.XR FOOT LEFT 3VW OR MORE, 5.XR HAND LEFT 3VW OR MORE History: 58 yo with diffuse arthralgia , eval for inflammatory dx Comparison: None. Findings: Right hand: No fracture or dislocation is seen. There is mild osteoarthritis is several interphalangeal joints. The metacarpophalangeal joint spaces are normal. No erosions are seen. Bone density and the soft tissues appear normal. Left hand: No fracture or dislocation is present. Mild osteoarthritis is seen at several interphalangeal joints and the first carpometacarpal joint. The metacarpophalangeal joint spaces are normal. No erosions are seen. Bone density appears normal. The soft tissues are normal. Right foot: No fracture or dislocation is present. The joint spaces are normal. No erosions are seen. Bone density appears normal. The soft tissues are normal. A plantar calcaneal spur is visible. Left foot: No fracture or dislocation is present. The joint spaces are normal. No erosions are seen. Bone density appears normal. The soft tissues are normal. A plantar calcaneal spur is noted. Sacroiliac joints: No erosion, widening, sclerosis, narrowing, or ankylosis is seen on either side. No fracture is present. The pubic symphysis is normal. Procedure Note Neil Robledo MD - 10/29/2018 Exam: 1.XR HAND RIGHT 3VW OR MORE, 2.XR SI JOINTS 3VW OR MORE, 3.XR FOOT RIGHT 3VW OR MORE, 4.XR FOOT LEFT 3VW OR MORE, 5.XR HAND LEFT 3VW OR MORE History: 58 yo with diffuse arthralgia , eval for inflammatory dx Comparison: None. Findings: Right hand: No fracture or dislocation is seen. There is mild osteoarthritis is several interphalangeal joints. The metacarpophalangeal joint spaces are normal. No erosions are seen. Bone density and the soft tissues appear normal. Left hand: No fracture or dislocation is present. Mild osteoarthritis is seen at several interphalangeal joints and the first carpometacarpal joint. The metacarpophalangeal joint spaces are normal. No erosions are seen. Bone density appears normal. The soft tissues are normal. Right foot: No fracture or dislocation is present. The joint spaces are normal. No erosions are seen. Bone density appears normal. The soft tissues are normal. A plantar calcaneal spur is visible. Left foot: No fracture or dislocation is present. The joint spaces are normal. No erosions are seen. Bone density appears normal. The soft tissues are normal. A plantar calcaneal spur is noted. Sacroiliac joints: No erosion, widening, sclerosis, narrowing, or ankylosis is seen oneither side. No fracture is present. The pubic symphysis is normal. IMPRESSION: 1. Right and left hands: Mild osteoarthritis. 2. Right and left feet: No arthritis. 3. Sacroiliac joints: No arthritis. This report was electronically signed by NEIL ROBLEDO MD on10/29/2018 12:19 PM . Chelle Cronin MD DIAGNOSTIC IMAGING O RDERABLES * XR SI JOINTS 3VW OR MORE (10/29/2018 11:27 AM CDT) Anatomical Region Laterality Modality Pelvis, Lower Extremity [facility] 10/29/2018 12:1 6 PM CDT Impressions 10/29/2018 12:19 PM CDT IMPRESSION: 1. Right and left hands: Mild osteoarthritis. 2. Right and left feet: No arthritis. 3. Sacroiliac joints: No arthritis. This report was electronically signed by NEIL ROBLEDO MD on 10/29/2018 12:19 PM . Narrative 10/29/2018 12:19 PM CDT Exam: 1.XR HAND RIGHT 3VW OR MORE, 2.XR SI JOINTS 3VW OR MORE, 3.XR FOOT RIGHT 3VW OR MORE, 4.XR FOOT LEFT 3VW OR MORE, 5.XR HAND LEFT 3VW OR MORE History: 58 yo with diffuse arthralgia , eval for inflammatory dx Comparison: None. Findings: Right hand: No fracture or dislocation is seen. There is mild osteoarthritis is several interphalangeal joints. The metacarpophalangeal joint spaces are normal. No erosions are seen. Bone density and the soft tissues appear normal. Left hand: No fracture or dislocation is present. Mild osteoarthritis is seen at several interphalangeal joints and the first carpometacarpal joint. The metacarpophalangeal joint spaces are normal. No erosions are seen. Bone density appears normal. The soft tissues are normal. Right foot: No fracture or dislocation is present. The joint spaces are normal. No erosions are seen. Bone density appears normal. The soft tissues are normal. A plantar calcaneal spur is visible. Left foot: No fracture or dislocation is present. The joint spaces are normal. No erosions are seen. Bone density appears normal. The soft tissues are normal. A plantar calcaneal spur is noted. Sacroiliac joints: No erosion, widening, sclerosis, narrowing, or ankylosis is seen on either side. No fracture is present. The pubic symphysis is normal. Procedure Note Neil Robledo MD - 10/29/2018 Exam: 1.XR HAND RIGHT 3VW OR MORE, 2.XR SI JOINTS 3VW OR MORE, 3.XR FOOT RIGHT 3VW OR MORE, 4.XR FOOT LEFT 3VW OR MORE, 5.XR HAND LEFT 3VW OR MORE History: 58 yo with diffuse arthralgia , eval for inflammatory dx Comparison: None. Findings: Right hand: No fracture or dislocation is seen. There is mild osteoarthritis is several interphalangeal joints. The metacarpophalangeal joint spaces are normal. No erosions are seen. Bone density and the soft tissues appear normal. Left hand: No fracture or dislocation is present. Mild osteoarthritis is seen at several interphalangeal joints and the first carpometacarpal joint. The metacarpophalangeal joint spaces are normal. No erosions are seen. Bone density appears normal. The soft tissues are normal. Right foot: No fracture or dislocation is present. The joint spaces are normal. No erosions are seen. Bone density appears normal. The soft tissues are normal. A plantar calcaneal spur is visible. Left foot: No fracture or dislocation is present. The joint spaces are normal. No erosions are seen. Bone density appears normal. The soft tissues are normal. A plantar calcaneal spur is noted. Sacroiliac joints: No erosion, widening, sclerosis, narrowing, or ankylosis is seen oneither side. No fracture is present. The pubic symphysis is normal. IMPRESSION: 1. Right and left hands: Mild osteoarthritis. 2. Right and left feet: No arthritis. 3. Sacroiliac joints: No arthritis. This report was electronically signed by NEIL ROBLEDO MD on10/29/2018 12:19 PM . Chelle Cronin MD DIAGNOSTIC IMAGING O RDERABLES * XR LUMBAR SPINE 4VW OR MORE (10/29/2018 11:27 AM CDT) Anatomical Region Laterality Modality Spine Radiographic Viviana ging 10/29/2018 11:1 2 AM CDT Impressions 10/29/2018 1:33 PM CDT IMPRESSION: No acute fracture of the lumbar spine. Report drafted by Christophe Rachel M.D. (resident) This report was approved by Christophe Rachel on 10/29/2018 1:33 PM . I, Dr. JEWELS DEL TORO have personally reviewed and interpreted this examination/study. This report was electronically signed by JEWELS DEL TORO on 10/29/2018 1:33 PM . Narrative 10/29/2018 1:33 PM CDT EXAMINATION: XR LUMBAR SPINE 4VW OR MORE HISTORY: 58 yo with LROM and l spine COMPARISON: None available. FINDINGS: The vertebral bodies are normally aligned. There is no acute fracture or compression deformity. Mild decreased intervertebral disc spaces at L4-L5 and L5-S1. Mild degenerative changes of the sacroiliac joints. Mild atherosclerotic calcifications of the abdominal Procedure Note Jewels Del Toro MD - 10/29/2018 EXAMINATION: XR LUMBAR SPINE 4VW OR MORE HISTORY: 58 yo with LROM and l spine COMPARISON: None available. FINDINGS: The vertebral bodies are normally aligned. There is no acute fracture or compression deformity. Mild decreased intervertebral disc spaces atL4-L5 and L5-S1. Mild degenerative changes of the sacroiliac joints. Mild atherosclerotic calcifications of the abdominal IMPRESSION: No acute fracture of the lumbar spine. Report drafted by Christophe Rachel M.D. (resident) This report was approved by Christophe Rachel on 10/29/2018 1:[address] JEWELS Aviles have personally reviewed and interpreted this examination/study. This report was electronically signed by JEWELS DEL TORO on10/29/2018 1:33 PM . Chelle Cronin MD DIAGNOSTIC IMAGING O RDERABLES * XR CERVICAL SPINE 4 OR 5VW (10/29/2018 11:27 AM CDT) Anatomical Region Laterality Modality Spine Radiographic Viviana ging 10/29/2018 11:1 7 AM CDT Impressions 10/29/2018 1:31 PM CDT IMPRESSION: Minimal C4-C5 anterolisthesis during flexion. Report drafted by Christophe Rachel M.D. (resident) This report was approved by Christophe Rachel on 10/29/2018 1:[address] JEWELS Aviles have personally reviewed and interpreted this examination/study. This report was electronically signed by JEWELS DEL TORO on 10/29/2018 1:31 PM . Narrative 10/29/2018 1:31 PM CDT EXAMINATION: XR CERVICAL SPINE 4 OR 5VW HISTORY: 58 yo with LROM and c spine COMPARISON: None available. FINDINGS: There is minimal C4-C5 anterolisthesis in the flexion view which disappears during extension. Vertebral body heights and intervertebral disc space widths are maintained. No acute fracture or compression deformity is identified. The dens is intact and the lateral masses are normally aligned. The predental interval and prevertebral soft tissues are normal. Bony mineralization is normal. Procedure Note Jewels Del Toro MD - 10/29/2018 EXAMINATION: XR CERVICAL SPINE 4 OR 5VW HISTORY: 58 yo with LROM and c spine COMPARISON: None available. FINDINGS: There is minimal C4-C5 anterolisthesis in the flexion view which disappears during extension. Vertebral body heights and intervertebral disc space widths are maintained. No acute fracture or compression deformity is identified. The dens is intact and the lateral masses are normally aligned. The predental interval and prevertebral soft tissuesare normal. Bony mineralization is normal. IMPRESSION: Minimal C4-C5 anterolisthesis during flexion. Report drafted by Christophe Rachel M.D. (resident) This report was approved by Christophe Rachel on 10/29/2018 1:31 PM . I, Dr. JEWELS DEL TORO have personally reviewed and interpreted this examination/study. This report was electronically signed by JEWELS DEL TORO on10/29/2018 1:31 PM . Chelle Cronin MD DIAGNOSTIC IMAGING O RDERABLES * (ABNORMAL) URINALYSIS W/MICROSCOPIC NO CULTURE (10/29/2018 10:46 AM [facility]) Color UA Straw Straw, Yellow, Colorless 10/29/2018 11:15 AM [facility] Clarity UA Clear Clear, Slt Cloudy 10/29/2018 11:15 AM [facility] Specific [place] UA 1.008 1.005 - 1.030 10/29/2018 11:15 AM [facility] pH UA 5.0 5.0 - 8.0 pH 10/29/2018 11:15 AM [facility] Protein UA Negative Negative mg/dL 10/29/2018 11:15 AM [facility] Glucose UA Negative Negative mg/dL 10/29/2018 11:15 AM [facility] Ketone UA Trace(A) Negative mg/dL 10/29/2018 11:15 AM [facility] Bilirubin UA Negative Negative mg/dL 10/29/2018 11:15 AM [facility] Blood UA Negative Negative 10/29/2018 11:15 AM [facility] Nitrite UA Negative Negative 10/29/2018 11:15 AM [facility] Leukocyte Esterase Negative Negative 10/29/2018 11:15 AM [facility] Urobilinogen UA Negative Negative mg/dL 10/29/2018 11:15 AM [facility] RBC UA 0-2 None Seen, 0-2, 3-5 /HPF 10/29/2018 11:15 AM [facility] WBC UA 0-5 None Seen, 0-5 /HPF 10/29/2018 11:15 AM CDT [facility] Bacteria UA Trace None, Trace /HPF 10/29/2018 11:15 AM CDT [facility] Squamous Epithelial Cells UA 0-2 None Seen, 0-2 /HPF 10/29/2018 11:15 AM CDT [facility] Mucus UA 1+ None, 1+ /LPF 10/29/2018 11:15 AM CDT [facility] Urine URINE SPECIMEN OBTAINED BY CLEAN CATCH PROCEDURE / Unknown Collection / Unknown 10/29/2018 10:46 AM CDT 10/29/2018 11:00 AM CDT Chelle Cronin MD LAB - URINALYSIS ORD ERABLES [facility] [address] [place] [address] * CENTROMERE B ANTIBODIES (10/29/2018 10:45 AM CDT) Pathologist [facility] Centromere B Antibody <0.2 0.0 - 0.9 AI 10/30/2018 12:15 PM CDT [facility] ([facility]) Blood BLOOD SPECIMEN / Unknown Lab Venipuncture / Unknown 10/29/2018 10:45 AM CDT 10/29/2018 11:01 AM CDT Narrative [facility] ([facility]) - 10/30/2018 12:15 PM CDT Performed at: [address] [place] [address] [address] [place], [place] [id number] [facility] [place] Agent: Javad Vera PhD, Phone: [phone] Chelle Cronin MD LAB - SEROLOGY ORDER JESSI [facility] ([facility]) [address] [place] [address] * RNA POLYMERASE III ANTIBODY IGG (10/29/2018 10:45 AM CDT) RNA Polymerase 3 Antibody IgG 16.8 Units/ml 11/06/2018 1:09 PM CDT [facility] ([facility]) Comment: Reference Range: Negative: <20 Weak Positive: 20-39 Moderate Positive: >40-80 Strong Positive: >80 RNA Polymerase III is strongly associated with diffuse cutaneous scleroderma and with an increases risk of acute renal crisis. A positive result supports a possible diagnosis of systemic sclerosis while a negative result does not rule out the possibility of systemic sclerosis, as the sensitivity for detection of RNA Polymerase III is between 11%- 23%. *This test has been developed and performance parameters have been validated by [employer]. This test has not been approved by the U.S. Food and Drug Administration (FDA); however, FDA approval is not required for clinical use. It is not intended that clinical diagnosis and patient management decisions be made using these results alone. This test has been validated using serum samples. The chief passenger ship steward/stewardess has not determined the efficacy of this test when performed on CSF, plasma, joint or pleural fluid specimens. The performance characteristics of this test were determined by [employer]. Blood BLOOD SPECIMEN / Unknown Lab Venipuncture / Unknown 10/29/2018 10:45 AM CDT 10/29/2018 11:06 AM CDT Narrative [facility] ([facility]) - 11/06/2018 1:09 PM CDT Performed at: [facility] [employer] [address] [id number] [place] Agent: Isaac Savage PhD, Phone: [phone] Chelle Cronin MD LAB - SEROLOGY ORDER JESSI [facility]) [address] [place] [address] * DNA ANTIBODY DS CRITHIDIA TITER (10/29/2018 10:45 AM CDT) [facility] dsDNA Antibody IgG <1:10 <1:10 2018 11:37 PM CDT ON LICENSE OF [facility] ([facility]) Comment: INTERPRETIVE INFORMATION: Double-Stranded DNA (dsDNA) Antibody, IgG by IFA (using Crithidia luciliae) Positivity for anti-double stranded DNA (anti-dsDNA) IgG antibody is a diagnostic criterion of systemic lupus erythematosus (SLE). The presence of the anti-dsDNA IgG antibody is identified by IFA titer (Crithidia luciliae indirect fluorescent test [AVI]). AVI is highly specific for SLE with a sensitivity of 50-60 percent. Some patients with early or inactive SLE may be positive for anti-dsDNA IgG by NORMA but negative by AVI. If the AVI result is negative but the patient has a positive NORMA and clinical suspicion remains, consider antinuclear antibody (DERRICK) testing by IFA. Additional information and recommendations for testing may be found at http://www.[email or web address]/Topics/AutoimmuneDz/ConnectiveTissueDz/i ndex.html. Performed by [facility], [address] [place] [address] [email or web address], Jaylon Manning MD, Lab. Director Blood BLOOD SPECIMEN / Unknown Lab Venipuncture / Unknown 10/29/2018 10:45 AM CDT 10/29/2018 11:00 AM CDT Chelle Cronin MD LAB - SEROLOGY ORDER JESSI ON LICENSE OF [facility] ([facility]) [address] [place], [place] [id number] [place] [address] * HEARD (SM) ANTIBODY ADAMA (10/29/2018 10:45 AM CDT) Pathologist [facility] Heard Antibody 2.4 0.0 - 19.9 Units 10/30/2018 12:56 PM CDT [facility] Comment: ADAMA Antibody Numeric Result Interpretation: <20.0 Units: Negative 20.0 - 39.0 Units: Weakly Positive >39.0 Units: Positive Blood BLOOD SPECIMEN / Unknown Lab Venipuncture / Unknown 10/29/2018 10:45 AM CDT 10/29/2018 11:01 AM CDT Chelle Cronin MD LAB - CHEMISTRY ORDUriah FAJARDO [address] [phone] * DOUGH CUTTER ANTIBODY (10/29/2018 10:45 AM CDT) Pathologist [facility] SM/DOUGH CUTTER Antibody 2.8 0.0 - 19.9 Units 10/30/2018 12:55 PM CDT [facility] Comment: ADAMA Antibody Numeric Result Interpretation: <20.0 Units: Negative 20.0 - 39.0 Units: Weakly Positive >39.0 Units: Positive Blood BLOOD SPECIMEN / Unknown Lab Venipuncture / Unknown 10/29/2018 10:45 AM CDT 10/29/2018 11:01 AM CDT Chelle Cronin MD LAB - CHEMISTRY SEA FAJARDO [address] [phone] * RHEUMATOID FACTOR BLOOD QUANTITATIVE (10/29/2018 10:45 AM CDT) Rheumatoid Factor <15 <30 IU/mL 10/29/2018 4:22 PM CDT [facility] Blood BLOOD SPECIMEN / Unknown Lab Venipuncture / Unknown 10/29/2018 10:45 AM CDT 10/29/2018 11:01 AM CDT Chelle Cronin MD LAB - CHEMISTRY SEA FAJARDO Performing Organization Address [facility]/ZIP Co de Phone Number [address] [phone] * C-REACTIVE PROTEIN (10/29/2018 10:45 AM CDT) Only the most recent of2 resultswithin the time period is included. C-Reactive Protein <0.5 <=0.5 mg/dL 10/29/2018 11:24 AM CDT [facility] Blood BLOOD SPECIMEN / Unknown Lab Venipuncture / Unknown 10/29/2018 10:45 AM CDT 10/29/2018 11:06 AM CDT Chelle Cronin MD LAB - CHEMISTRY SEA FAJARDO [address] [phone] * DERRICK BLOOD SCREEN W/REFLEX TITER (10/29/2018 10:45 AM CDT) DERRICK Negative 10/30/2018 12:15 PM [facility]T [facility] Comment: Negative <1:80 Borderline 1:80 Positive >1:80 Blood BLOOD SPECIMEN / Unknown Lab Venipuncture / Unknown 10/29/2018 10:45 AM CDT 10/29/2018 11:06 AM CDT Narrative [facility] ([facility]) - 10/30/2018 12:15 PM CDT Performed at: [facility] - [facility] [address] [place], [place] [id number] [place] Agent: Javad Vera PhD, Phone: [phone] Chelle Cronin MD LAB - CHEMISTRY SEA FAJARDO [facility]) [address] [place] [address], [facility] * PM/SCL-100 ANTIBODY IGG (10/29/2018 10:45 AM CDT) PM/Scl 100 Antibody IgG Negative Negative 11/03/2018 7:29 AM CDT [employer] [facility] ([facility]) Comment: INTERPRETIVE INFORMATION: PM/Scl-100 Antibody, IgG by Immunoblot The presence of PM/Scl-100 IgG antibody along with a positive DERRICK IFA nucleolar pattern is associated with connective tissue diseases such as polymyositis (PM), dermatomyositis (DM), systemic sclerosis (SSc), and polymyositis/systemic sclerosis overlap syndrome. The clinical relevance of PM/Scl-100 IgG antibody with a negative DERRICK IFA nucleolar pattern is unknown. PM/Scl-100 is the main target epitope of the PM/Scl complex, although antibodies to other targets not detected by this assay may occur. Test developed and characteristics determined by [facility]. See Compliance Statement D: [employer] Performed by [facility], [address] [place] [id number] [email or web address], Jaylon Manning MD, Lab. Director Blood BLOOD SPECIMEN / Unknown Lab Venipuncture / Unknown 10/29/2018 10:45 AM CDT 10/29/2018 11:01 AM CDT Chelle Cronin MD LAB - SEROLOGY ORDER JESSI Performing Organization Address [facility]/ZIP Co de Phone Number [facility]) [address] [place] [address] * HLA TYPING B27 (10/29/2018 10:45 AM CDT) HLA-B27 Negative Negative 10/31/2018 6:15 PM CDT ON LICENSE OF [facility] ([facility]) Comment: INTERPRETIVE INFORMATION: HLA-B27 HLA-B27 is a serologically defined allele of the human HLA-B locus. The presence of the HLA-B27 antigen is strongly associated with ankylosing spondylitis and related disorders. Test developed and characteristics determined by [employer]. See Compliance Statement B: [employer] Performed by [facility], [address] [place] [address] [email or web address], Jaylon Manning MD, Lab. Director Blood BLOOD SPECIMEN / Unknown Lab Venipuncture / Unknown 10/29/2018 10:45 AM CDT 10/29/2018 11:00 AM CDT Chelle Cronin MD LAB - CHEMISTRY ORDE SCOTTY Performing Organization Address City/[facility] Co de Phone Number [facility]) [address] [place] [address] * SS-B (SJOGRENS'S) ANTIBODY (10/29/2018 10:45 AM CDT) SS-B LA Antibody 1.9 0.0 - 19.9 Units 10/30/2018 12:57 PM CDT [facility] Comment: ADAMA Antibody Numeric Result Interpretation: <20.0 Units: Negative 20.0 - 39.0 Units: Weakly Positive >39.0 Units: Positive Blood BLOOD SPECIMEN / Unknown Lab Venipuncture / Unknown 10/29/2018 10:45 AM CDT 10/29/2018 11:00 AM CDT Chelle Cronin MD LAB - CHEMISTRY SEA FAJARDO [address] [phone] * SS-A (SJOGREN'S) ANTIBODY (10/29/2018 10:45 AM CDT) SS-A (Ro) Antibody 5.6 0.0 - 19.9 Units 10/30/2018 12:56 PM CDT [facility] Comment: ADAMA Antibody Numeric Result Interpretation: <20.0 Units: Negative 20.0 - 39.0 Units: Weakly Positive >39.0 Units: Positive Blood BLOOD SPECIMEN / Unknown Lab Venipuncture / Unknown 10/29/2018 10:45 AM CDT 10/29/2018 11:00 AM CDT Chelle Cronin MD LAB - CHEMISTRY SEA FAJARDO Performing Organization Address [facility] Co de Phone Number [address] [phone] * SCLERODERMA 70 (SCL) ANTIBODY (10/29/2018 10:45 AM CDT) SCL-70 Antibody 3.5 0.0 - 19.9 Units 10/30/2018 12:55 PM CDT [facility] Comment: ADAMA Antibody Numeric Result Interpretation: <20.0 Units: Negative 20.0 - 39.0 Units: Weakly Positive >39.0 Units: Positive Blood BLOOD SPECIMEN / Unknown Lab Venipuncture / Unknown 10/29/2018 10:45 AM CDT 10/29/2018 11:00 AM CDT Chelle Cronin MD LAB - CHEMISTRY SEA FAJARDO Performing Organization Address [facility]/ZIP Co de Phone Number [address] [phone] * DNA ANTIBODY DOUBLE STRANDED (10/29/2018 10:45 AM CDT) dsDNA Antibody 10 0 - 29 IU/mL 10/30/2018 12:52 PM CDT [facility] Comment: dsDNA Antibody Numeric Result Interpretation: 0 - 29 IU/mL: Negative 30 - 75 IU/mL: Borderline >75 IU/mL: Positive Blood BLOOD SPECIMEN / Unknown Lab Venipuncture / Unknown 10/29/2018 10:45 AM CDT 10/29/2018 11:01 AM CDT Chelle Cronin MD LAB - HEMATOLOGY ORD ERABLES Performing Organization Address [facility]/ZIP Co de Phone Number [address] [phone] * VITAMIN D 25-HYDROXY (10/29/2018 10:45 AM CDT) Vitamin D, 25 Hydroxy 45.3 See comment: ng/mL 10/29/2018 11:45 AM CDT [facility] Comment: The recommendations for 25-Hydroxy Vitamin D clinical decision points are as follows: Deficient: <20.0 ng/mL Insufficient: 20.0 - 29.9 ng/mL Sufficient: > or =30.0 ng/mL If the 25-Hydroxy Vitamin D results are inconsitent with clinical evidence, it is recommended that follow-up testing using a method such as LC/MS/MS be performed to confirm the result. Reference: The Endocrine Society Clinical Practice Guidelines. 2010 Blood BLOOD SPECIMEN / Unknown Lab Venipuncture / Unknown 10/29/2018 10:45 AM CDT 10/29/2018 11:00 AM CDT Chelle Cronin MD LAB - CHEMISTRY ORDE RABJOAQUÍN Performing Organization Address [facility] Co de Phone Number [address] [phone] * ALDOLASE (10/29/2018 10:45 AM CDT) Aldolase 4.0 3.3 - 10.3 U/L 10/30/2018 3:11 PM CDT [facility] ([facility]) Blood BLOOD SPECIMEN / Unknown Lab Venipuncture / Unknown 10/29/2018 10:45 AM CDT 10/29/2018 11:01 AM CDT Narrative [facility] ([facility]) - 10/30/2018 3:11 PM CDT Performed at: [facility] - [facility] [address] [place], [place] [id number] [facility] [place] Agent: Javad Vera PhD, Phone: [phone] Chelle Cronin MD LAB - CHEMISTRY SEA FAJARDO Performing Organization Address City/[facility]/ZIP Co de Phone Number [facility] ([facility]) [address] [place] [address] * CYCLIC CITRUL PEPTIDE AB IGG (CCP) (10/29/2018 10:45 AM CDT) CCP Antibody IgG <0.5 <5.0 U/mL 10/29/2018 12:12 PM CDT [facility] Blood BLOOD SPECIMEN / Unknown Lab Venipuncture / Unknown 10/29/2018 10:45 AM CDT 10/29/2018 11:06 AM CDT Chelle Cronin MD LAB - CHEMISTRY SEA FAJARDO Performing Organization Address [facility]/ZIP Co de Phone Number [address] [phone] * ERYTHROCYTE SEDIMENTATION RATE (10/29/2018 10:45 AM CDT) Only the most recent of2 resultswithin the time period is included. Pathologist [facility] Erythrocyte Sedimentation Rate Westergren 10 0 - 30 MM/HR 10/29/2018 11:19 AM CDT [facility] Blood BLOOD SPECIMEN / Unknown Lab Venipuncture / Unknown 10/29/2018 10:45 AM CDT 10/29/2018 11:01 AM CDT Chelle Cronin MD LAB - HEMATOLOGY ORD MOHAN [address] [phone] * (ABNORMAL) CBC WITH DIFFERENTIAL (10/29/2018 10:45 AM CDT) Only the most recent of2 resultswithin the time period is included. WBC 7.5 3.5 - 10.5 10 3/uL 10/29/2018 11:10 AM [facility] RBC 3.79(L) 3.90 - 5.00 10 6/uL 10/29/2018 11:10 AM [facility] Hemoglobin 11.6(L) 12.0 - 15.5 g/dL 10/29/2018 11:10 AM [facility] Hematocrit 35.0 35.0 - 45.0 % 10/29/2018 11:10 AM [facility] MCV 92.3 81.0 - 97.0 fL 10/29/2018 11:10 AM [facility] MCH 30.6 28.0 - 34.0 pg 10/29/2018 11:10 AM [facility] MCHC 33.1 32.0 - 36.0 g/dL 10/29/2018 11:10 AM [facility] Platelet Count 255 150 - 400 10 3/uL 10/29/2018 11:10 AM [facility] RDW-SD 44.0 36.0 - 50.0 fL 10/29/2018 11:10 AM [facility] RDW-CV 13.0 11.2 - 14.8 % 10/29/2018 11:10 AM [facility] MPV 10.1 9.3 - 12.8 fL 10/29/2018 11:10 AM [facility] nRBC Absolute 0.00 0 10 3/uL 10/29/2018 11:10 AM [facility] nRBC Auto 0.0 0 /100 WBC 10/29/2018 11:10 AM [facility] Neutrophils % 62.2 35.0 - 70.0 % 10/29/2018 11:10 AM [facility] Lymphocytes % 24.1 19.7 - 55.1 % 10/29/2018 11:10 AM [facility] Monocytes % 8.0 3.0 - 15.0 % 10/29/2018 11:10 AM [facility] Eosinophils % 4.1 0.0 - 6.0 % 10/29/2018 11:10 AM [facility] Basophil % 1.2 0.0 - 1.5 % 10/29/2018 11:10 AM [facility] Neutrophils Absolute 4.6 1.6 - 7.0 10 3/uL 10/29/2018 11:10 AM [facility] Lymphocyte Absolute 1.8 0.8 - 2.9 10 3/uL 10/29/2018 11:10 AM [facility] Monocytes Absolute 0.60 0.14 - 0.66 10 3/uL 10/29/2018 11:10 AM [facility] Eosinophils Absolute 0.31 0.00 - 0.45 10 3/uL 10/29/2018 11:10 AM [facility] Basophils Absolute 0.09(H) 0.00 - 0.06 10 3/uL 10/29/2018 11:10 AM [facility] Immature Granulocytes % 0.4 0.0 - 1.0 % 10/29/2018 11:10 AM [facility] Blood BLOOD SPECIMEN / Unknown Lab Venipuncture / Unknown 10/29/2018 10:45 AM CDT 10/29/2018 11:01 AM CDT Chelle Cronin MD LAB - HEMATOLOGY ORD ERABLES [address] [phone] * (ABNORMAL) COMPREHENSIVE METABOLIC PANEL (10/29/2018 10:45 AM CDT) Only the most recent of2 resultswithin the time period is included. BUN 17 7 - 26 mg/dL 10/29/2018 11:26 AM [facility] Creatinine 0.7 0.6 - 1.2 mg/dL 10/29/2018 11:26 AM [facility] Sodium 140 136 - 145 mmol/L 10/29/2018 11:26 AM [facility] Potassium 4.0 3.5 - 4.5 mmol/L 10/29/2018 11:26 AM [facility] Chloride 105 98 - 107 mmol/L 10/29/2018 11:26 AM [facility] CO2 25 22 - 29 mmol/L 10/29/2018 11:26 AM [facility] Glucose 111 70 - 115 mg/dL 10/29/2018 11:26 AM [facility] Calcium 9.3 8.4 - 10.2 mg/dL 10/29/2018 11:26 AM [facility] Protein Total 6.6 6.0 - 8.3 g/dL 10/29/2018 11:26 AM [facility] Albumin 3.7 3.4 - 5.0 g/dL 10/29/2018 11:26 AM [facility] Bilirubin Total 1.8(H) 0.2 - 1.2 mg/dL 10/29/2018 11:26 AM [facility] Alkaline Phosphatase 70 40 - 150 Units/L 10/29/2018 11:26 AM [facility] ALT 15 0 - 55 Units/L 10/29/2018 11:26 AM [facility] AST 13 5 - 34 Units/L 10/29/2018 11:26 AM [facility] Anion Gap 14 8 - 18 10/29/2018 11:26 AM [facility] BUN/Creatinine Ratio 24(H) 7 - 23 10/29/2018 11:26 AM [facility] Osmolality Calculated 292 270 - 300 mOsm/kg 10/29/2018 11:26 AM [facility] Albumin/Globulin Ratio 1.3 1.1 - 2.3 10/29/2018 11:26 AM [facility] eGFR >60 >60 mL/min/1.7 3 m2 10/29/2018 11:26 AM [facility] Blood BLOOD SPECIMEN / Unknown Lab Venipuncture / Unknown 10/29/2018 10:45 AM CDT 10/29/2018 11:00 AM T Chelle Cronin MD LAB - CHEMISTRY SEA Tsai Organization Address City/State/ZIP Co de Phone Number [address] [phone] * [facility] BLOOD (10/29/2018 10:45 AM CDT) [facility] Total 153 125 - 243 Units/L 10/29/2018 11:26 AM CDT [facility] Blood BLOOD SPECIMEN / Unknown Lab Venipuncture / Unknown 10/29/2018 10:45 AM CDT 10/29/2018 11:00 AM CDT Chelle Cronin MD LAB - CHEMISTRY SEA FAJARD[place] [address] [phone] * CK BLOOD (10/29/2018 10:45 AM CDT) Pathologist [facility] CK Total 74 30 - 200 Units/L 10/29/2018 11:26 AM CDT [facility] Blood BLOOD SPECIMEN / Unknown Lab Venipuncture / Unknown 10/29/2018 10:45 AM CDT 10/29/2018 11:00 AM CDT Chelle Cronin MD LAB - CHEMISTRY SEA FAJARDO Performing Organization Address City/[facility] Co de Phone Number [address] [phone] * HEPATITIS C AB W/RFLX TO HCV RNA QN PCR (09/23/2018) [facility] Hepatitis C Antibody NON-REACTI VE NON-REACT KOBE [facility] Signal to Cut-Off 0.01 <1.00 [facility] Comment: HCV antibody was non-reactive. There is no laboratory evidence of HCV infection. In most cases, no further action is required. However, if recent HCV exposure is suspected, a test for HCV RNA (test code 82558) is suggested. For additional information please refer to http://education.[employer] You[employer] Network/faq/QWD12y3 (This link is being provided for informational/ educational purposes only.) Test Performed at: [facility] [address] [place] [address] BHAVYA GONSALVES DO,MPH Blood BLOOD SPECIMEN / Unknown 09/23/2018 09/23/2018 3:22 PM SPLITTER MACHINE Treasure Fry MD LAB - CHEMISTRY OR DERABLES Performing Organization Address City/[facility]/ZIP Co de Phone Number [facility] [phone] [place] [address] * RPR W REFLEX TO TITER+CONFIRM (09/23/2018) Pathologist [facility] RPR NON-REACTI VE NON-REACT KOBE [facility] Comment: REPORT COMMENT: FASTING:NO Test Performed at: [facility] [address] [employer] [facility] [place] [address] BHAVYA GONSALVES DO,MPH Blood BLOOD SPECIMEN / Unknown 09/23/2018 09/23/2018 3:22 PM SPLITTER MACHINE Treasure Fry MD LAB - CHEMISTRY OR DERABLES Performing Organization Address [facility] Co de Phone Number [facility] [phone] [place] [address] * HIV-1 HIV-2 ANTIGEN/ANTIBODY W RFLX (09/23/2018) Pathologist [facility] HIV Screen 4th Generation w Reflex NON-REACT KOBE NON-REACT KOBE [facility] Comment: HIV-1 antigen and HIV-1/HIV-2 antibodies were not detected. There is no laboratory evidence of HIV infection. PLEASE NOTE: This information has been disclosed to you from records whose confidentiality may be protected by state law. If your state requires such protection, then the state law prohibits you from making any further disclosure of the information without the specific written consent of the person to whom it pertains, or as otherwise permitted by law. A general authorization for the release of medical or other information is NOT sufficient for this purpose. For additional information please refer to http://education.FoxyP2.TouchLocal/faq/PPB080 (This link is being provided for informational/ educational purposes only.) The performance of this assay has not been clinically validated in patients less than 2 years old. Test Performed at: [facility] [address] [address] BHAVYA GONSALVES DO,MPH Blood BLOOD SPECIMEN / Unknown 09/23/2018 09/23/2018 3:22 PM SPLITTER MACHINE Treasure Fry MD LAB - SEROLOGY ORD ERABLES Performing Organization Address City/[facility]/ZIP Co de Phone Number [facility] [address] [place] [address] * HEPATITIS B SURFACE ANTIGEN W RFLX CONFIRMATION (09/23/2018) Hepatitis B Virus Surface Antigen NON-REACTI VE NON-REACT KOBE [facility] Comment: Test Performed at: [facility] [address] [place] [address] BHAVYA GONSALVES DO,MPH Blood BLOOD SPECIMEN / Unknown 09/23/2018 09/23/2018 3:22 PM SPLITTER MACHINE Treasure Fry MD LAB - CHEMISTRY OR DERABLES Performing Organization Address [facility] Co de Phone Number [facility] [address] [place] [address] * US BREAST LEFT LTD (09/21/2018 2:11 PM SPLITTER MACHINE) Anatomical Region Laterality Modality Breast Left Mammography 09/21/2018 2:06 PM SPLITTER MACHINE Impressions 09/21/2018 2:12 PM SPLITTER MACHINE IMPRESSION: Palpable mass within the outer left breast 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 BI-RADS category 2, benign findings. RECOMMENDATION: Continued annual screening mammograms are recommended. This report was electronically signed by MADALYN CORTEZ M.D. on 09/21/2018 2:12 PM . Narrative 09/21/2018 2:12 PM SPLITTER MACHINE Unilateral breast ultrasound. COMPARISON: Prior left breast ultrasound performed 07/06/2015 at an outside institution, as well as multiple prior mammograms, most recently 08/25/2018 HISTORY: The patient is a 57-year-old female who noticed a mobile palpable lump in the outer left breast that she feels has slightly increased in size since it was evaluated in 2014. She states this mass is nontender and she is otherwise asymptomatic. FINDINGS: Targeted high-resolution sonography and digital palpation was performed in the region of the patient's palpable lump in the 2 to 3:00 position, 5 cm from the nipple. A mobile palpable lump has the appearance of a benign lipoma and is similar in appearance 2015. Review of the prior mammograms also reveals a partially cystic circumscribed fatty mass best seen on the mediolateral oblique projections along the nipple axis, stable since 2014. These findings were discussed with the patient by Dr. Cortez. Janina Vigil MD US ORDERABLES * MAMMO BILAT SCREENING (08/25/2018 9:06 AM SPLITTER MACHINE) Only the most recent of2 resultswithin the time period is included. Anatomical Region Laterality Modality Breast Bilateral Mammography 08/25/2018 12:1 7 PM SPLITTER MACHINE Addenda Addendum by Klaus Rob MD on 08/27/2018 9:43 AM SPLITTER MACHINE ORIGINAL REPORT EXAMINATION: Digital screening mammogram on 08/25/2018. Low-dose full-field digital breast tomosynthesis examination was performed with synthetic 2D images and 3D acquisitions. Computer assisted detection was utilized. PRIOR: 11/25/2017 and priors dating back to 07/06/2015. HISTORY: Screening exam. At the time of exam, she complains of a right axilla lump. BREAST PARENCHYMAL DENSITY: The breasts are heterogeneously dense, which may obscure small masses. FINDINGS: No suspicious masses, areas of architectural distortion or microcalcifications are evident on synthetic 2D mammogram or tomosynthesis images. There has been no significant interval change since the prior examination. IMPRESSION: No mammographic evidence of malignancy in either breast. ASSESSMENT: BIRADS Category 0: Incomplete - Needs additional imaging evaluation. RECOMMENDATION: Targeted ultrasound recommended for the patient's right axilla lump. Thank you for allowing us to participate in the care of your patient. ADDENDUM #1 Though the technologist documented a right axilla lump, the patient states it is a LEFT axilla lump. She has an appointment for ultrasound. This report was electronically signed by KLAUS ROB M.D. on 08/27/2018 9:40 AM . Narrative 08/25/2018 12:21 PM SPLITTER MACHINE EXAMINATION: Digital screening mammogram on 08/25/2018. Low-dose full-field digital breast tomosynthesis examination was performed with synthetic 2D images and 3D acquisitions. Computer assisted detection was utilized. PRIOR: 11/25/2017 and priors dating back to 07/06/2015. HISTORY: Screening exam. At the time of exam, she complains of a right axilla lump. BREAST PARENCHYMAL DENSITY: The breasts are heterogeneously dense, which may obscure small masses. FINDINGS: No suspicious masses, areas of architectural distortion or microcalcifications are evident on synthetic 2D mammogram or tomosynthesis images. There has been no significant interval change since the prior examination. IMPRESSION: No mammographic evidence of malignancy in either breast. ASSESSMENT: BIRADS Category 0: Incomplete - Needs additional imaging evaluation. RECOMMENDATION: Targeted ultrasound recommended for the patient's right axilla lump. Thank you for allowing us to participate in the care of your patient. Procedure Note Klaus Rob MD - 08/25/2018 EXAMINATION: Digital screening mammogram on 08/25/2018. Low-dose full-field digital breast tomosynthesis examination was performed with synthetic 2D images and 3D acquisitions. Computer assisted detection was utilized. PRIOR: 11/25/2017 and priors dating back to 07/06/2015. HISTORY: Screening exam. At the time of exam, she complains of a right axilla lump. BREAST PARENCHYMAL DENSITY: The breasts are heterogeneously dense, which may obscure small masses. FINDINGS: No suspicious masses, areas of architectural distortion or microcalcifications are evident on synthetic 2D mammogram or tomosynthesis images. There has been no significant interval change since the prior examination. IMPRESSION: No mammographic evidence of malignancy in either breast. ASSESSMENT: BIRADS Category 0: Incomplete - Needs additional imaging evaluation. RECOMMENDATION: Targeted ultrasound recommended for the patient's right axilla lump. Thank you for allowing us to participate in the care of your patient. Gregorio Taveras MD MAMMO ORDERABLES Care Teams Bottom Scrubber Relationship Specialty Start Date End Date Gregorio Taveras MD [address] [place] [address] PCP - General 04/22/18
--- OUTSIDE RECORDS SUMMARY | 2024-09-01 10:10 | XMS_ITS ---
Author Organization [facility] Address [address] [place] [address] Phone Care Team Providers Care Cardiac Exercise Physiologist Name Role Phone Danilo Nichols MD Primary Care Provider [phone] [facility] Status:Enrolled (Active) Start date:08/18/2024 Enrollment date:08/18/2024 Related social drivers of health:Social Connections, Alcohol Use, Tobacco Use, Financial Resource Strain, Depression, Stress, Physical Activity, Food Insecurity, Transportation Needs, Housing Stability, Utilities Continued Care and Services Coordination
--- OUTSIDE RECORDS SUMMARY | 2024-09-01 10:10 | XMS_ITS | Referral Summary ---
Author Organization [facility] Address [address] [place] [address] Care Team Providers Care Electric Organ Assembler And Checker Name Role Phone Gregorio Taveras MD Primary Care Provider [phone] Source Comments [facility],non-owned Affiliates and Associated Physician Practices is amultiple site organization consisting of ambulatory clinics and hospital sitesin [place], [place] and [place]. This disclosure is being madepursuant to the Care Everywhere program and may not contain all information available regarding this patient. Last updated 18.[facility] Allergies No known active allergies Medications * Be aware that medications may not be up to date on this document. Alwaysverify current medications with the patient. Medication Sig Dispensed Refills Start Date End Date Status Aspirin (ASPIR-LOW) 81 MG Take 1 tablet every day by oral route. Active ENALAPRIL MALEATE PO Active ondansetron, disintegrating, (ZOFRAN ODT) 4 MG tablet 10/28/2018 Active ALBUTEROL IN Active fluticasone propionate (FLONASE) 50 MCG/ACT nasal spray [place] 2 sprays into each nostril once daily Active triamcinolone acetonide (KENALOG) 0.1 % ointment Apply to affected area 2 times daily as needed Active Simethicone (GAS-X) 125 MG chew tablet Take 1 tablet by mouth 3 times daily as needed Active omeprazole (PRILOSEC) 40 MG capsule Take 40 mg by mouth daily before breakfast Active Multiple Vitamins-Minerals (MULTIVITAMIN GUMMIES WOMENS PO) Take 1 tablet by mouth once daily Active DULoxetine (CYMBALTA) 60 MG capsule Take 60 mg by mouth once daily 12/01/2018 Active docusate sodium (COLACE) 100 MG capsule Take 1 capsule by mouth once daily as needed Active Multiple Vitamins-Minerals (MULTIVITAMIN ADULT EXTRA C PO) multivitamin once daily Active meloxicam (MOBIC) 7.5 MG tabletIndications: Osteoarthritis Take 1 tablet by mouth once daily Reasons: Joint Damage causing Pain and Loss of Function 30 tablet 03/15/2020 Active Active Problems No known active problems [...] Mass Index 23.63 03/15/2020 2:28 PM CDT Plan of Treatment Not on file Procedures Procedure Name Priority Date/Time Associated Diagnosis Comments HEPATITIS C AB W/RFLX TO HCV RNA QN PCR Routine 09/23/2018 Screen for STD (sexually transmitted disease) HIV-1 HIV-2 ANTIGEN/ANTIBODY W RFLX Routine 09/23/2018 Screen for STD (sexually transmitted disease) MAMMO BILAT SCREENING Routine 08/25/2018 9:06 AM NURSE NAVIGATOR Visit for screening mammogram from Last 3 Months or Most Recently Relevant to Health Maintenance Results * HEPATITIS C AB W/RFLX TO HCV RNA QN PCR (09/23/2018) Hepatitis C Antibody NON-REACTI VE NON-REACT KO[facility] Signal to Cut-Off 0.01 <1.00 [facility] Comment: HCV antibody was non-reactive. There is no laboratory evidence of HCV infection. In most cases, no further action is required. However, if recent HCV exposure is suspected, a test for HCV RNA (test code 62334) is suggested. For additional information please refer to http://Inmoo.Noxilizer/faq/XCQ18m3 (This link is being provided for informational/ educational purposes only.) Test Performed at: [facility] [address] BHAVYA GONSALVES DO,MPH Blood BLOOD SPECIMEN / Unknown 09/23/2018 09/23/2018 3:22 PM NURSE NAVIGATOR Treasure Fry MD LAB - CHEMISTRY OR DERABLES Performing Organization Address City/State/[facility] [place] Phone Number [facility] [address] [place] [address] * HIV-1 HIV-2 ANTIGEN/ANTIBODY W RFLX (09/23/2018) HIV Screen 4th Generation w Reflex NON-REACT [...] purpose. For additional information please refer to http://Inmoo.Noxilizer/faq/RQZ900 (This link is being provided for informational/ educational purposes only.) The performance of this assay has not been clinically validated in patients less than 2 years old. Test Performed at: [facility] [address] BHAVYA GONSALVES DO,MPH Blood BLOOD SPECIMEN / Unknown 09/23/2018 09/23/2018 3:22 PM NURSE NAVIGATOR Treasure Fry MD LAB - SEROLOGY ORD ERABLES [facility] [address] [place] [address] * MAMMO BILAT SCREENING (08/25/2018 9:06 AM NURSE NAVIGATOR) Anatomical Region Laterality Modality Breast Bilateral Mammography 08/25/2018 12:1 7 PM NURSE NAVIGATOR Addenda Addendum by Klaus Rob MD on 08/27/2018 9:43 AM NURSE NAVIGATOR ORIGINAL REPORT EXAMINATION: Digital screening mammogram on [...] 9:40 AM . Narrative 08/25/2018 12:21 PM NURSE NAVIGATOR EXAMINATION: Digital screening mammogram on 08/25/2018. Low-dose [...] your patient. Gregorio Taveras MD MAMMO ORDERABLES from Last 3 Months or Most Recently Relevant to Health Maintenance Care Teams Electric Organ Assembler And Checker Relationship Specialty Start Date End Date Gregorio Taveras MD [address] [place] [address] PCP - General 04/22/18
--- OUTSIDE RECORDS SUMMARY | 2024-09-01 10:10 | XMS_ITS | Clinical Summary ---
Author Organization [facility] [employer] Address [address] [place] [address] Care Team Providers Care Med Peds Name Role Phone Gregorio Taveras MD Primary Care Provider [phone] Source Comments [facility] [employer],non-owned Affiliates and Associated Physician Practices is amultiple site organization consisting of ambulatory clinics and hospital sitesin [place], [place], [place] and [place]. This disclosure is being madepursuant to the Care Everywhere program and may not contain all information available regarding this patient. Last updated 18.[facility] [employer] Allergies No known active allergies Medications * [...] fluticasone propionate (FLONASE) 50 MCG/ACT nasal spray [place] 2 sprays into each nostril once daily [...] Active Active Problems No known active problems Family History Medical History Relation Name Comments Diabetes - Type 1 Brother CAD (Coronary Artery Disease) Father Depression Mother Diabetes - Type 2 Mother unknown wh ich type Osteoporosis Sister Relation Name Status Comments Brother Father Mother Sister Social History Tobacco Use Types Packs/Day Years [...] 03/15/2020 2:28 PM CDT Plan of Treatment Health Maintenance Due Date Last Done Comments COLOGUARD (AGES 45-75) - COL ON CA SCREENING 1962 COLON MONITORING 1962 COLONOSCOPY - COLON CA SCREENING 1962 CT COLONOGRAPHY - COLON CA SCREENING 1962 Colorectal Cancer Screening 1962 FIT - COLON CA SCREENING 1962 FLEX SIG - COLON CA SCREENING 1962 LIPID TESTING 1962 DTAP/TDAP/TD VACCINES (1 - Tdap) 1981 PNEUMOCOCCAL VACCINE 50+ (1 of 1 - PCV) 2012 ZOSTER VACCINE (1 of 2) 2012 MAMMOGRAM 08/25/2020 08/25/2018, 11/25/2017 COVID-19 VACCINE (1 - 2023-2 5 season) 2024 INFLUENZA VACCINE (#1) 2024 05/11/2014 DEPRESSION SCREENING 07/21/2024 Respiratory Syncytial Virus (RSV) Vaccine Pt: or over 60 yrs (1 - 1-dose 75+ series) 2037 HEPATITIS C SCREENING Completed 09/23/2018 HIV SCREENING Completed 09/23/2018 HEPATITIS B VACCINE Aged Out No longe r eligible based on patient's age to complete this topic HIB VACCINE Aged Out No longer eligi ble based on patient's age to complete this topic HPV VACCINE Aged Out No longer eligi ble based on patient's age to complete this topic MENINGOCOCCAL (Group B) VACCINE Aged Out No longer eligible b ased on patient's age to complete this topic MENINGOCOCCAL VACCINE Aged Out No alis samantha eligible based on patient's age to complete this topic PNEUMOCOCCAL VACCINE Aged Out No long er eligible based on patient's age to complete this topic Procedures Procedure Name Priority Date/Time Associated Diagnosis Comments HEPATITIS C AB W/RFLX TO HCV RNA QN PCR Routine 09/23/2018 Screen for STD (sexually transmitted disease) HIV-1 HIV-2 ANTIGEN/ANTIBODY W RFLX Routine 09/23/2018 Screen for STD (sexually transmitted disease) MAMMO BILAT SCREENING Routine 08/25/2018 9:06 AM HEEL BLACKER Visit for screening mammogram from Last 3 [...] a test for HCV RNA (test code 20802) is suggested. For additional information please refer to http://Sitefly.GetMaid/faq/DXK86c0 (This link is being provided for informational/ educational purposes only.) Test Performed at: [facility] [address] [employer] [address] BHAVYA GONSALVES DO,MPH Blood BLOOD SPECIMEN / Unknown 09/23/2018 09/23/2018 3:22 PM HEEL BLACKER Treasure Fry MD LAB - CHEMISTRY OR DERABLES Performing Organization Address [facility] Co de Phone Number [facility] [address] [place] [address] * HIV-1 HIV-2 ANTIGEN/ANTIBODY W RFLX (09/23/2018) [...] purpose. For additional information please refer to http://Sitefly.GetMaid/faq/IFZ409 (This link is being provided for informational/ educational purposes only.) The performance of this assay has not been clinically validated in patients less than 2 years old. Test Performed at: [facility] [address] [place] [address] BHAVYA GONSALVES DO,MPH Blood BLOOD SPECIMEN / Unknown 09/23/2018 09/23/2018 3:22 PM HEEL BLACKER Treasure Fry MD LAB - SEROLOGY ORD ERABLES Performing Organization Address [facility] Co de Phone Number [facility] [address] [place] [address] * MAMMO BILAT SCREENING (08/25/2018 9:06 AM HEEL BLACKER) Anatomical Region Laterality Modality Breast Bilateral Mammography 08/25/2018 12:1 7 PM HEEL BLACKER Addenda Addendum by Klaus Rob MD on 08/27/2018 9:43 AM HEEL BLACKER ORIGINAL REPORT EXAMINATION: Digital screening mammogram on [...] 9:40 AM . Narrative 08/25/2018 12:21 PM HEEL BLACKER EXAMINATION: Digital screening mammogram on 08/25/2018. Low-dose [...] Recently Relevant to Health Maintenance Care Teams Med Peds Relationship Specialty Start Date End Date Gregorio Taveras MD [address] [place] [address] PCP - General 04/22/18
[2024-09-01 10:11] LABS: Add Urine Microscopic? NO; Appearance Urine Clear (Clear); Bilirubin Urine Negative (Negative); Blood Urine Negative (Negative); Color Urine Yellow (Yellow); Glucose Urine UA Negative (Negative); Ketones Urine Negative (Negative); Leukocyte Esterase Ur Negative LEU/UL (Negative); Nitrate Urine Negative (Negative); Protein Urine Negative (Negative); Specific Grav Ur 1.013 (1.001-1.035); Urobilinogen Urine 0.2 mg/dL (<2.0); pH Urine 5.5 (5.0-9.0)
[2024-09-01 10:20] LABS: Alanine Aminotransferase 21 U/L (6-35); Albumin Level 4.3 g/dL (3.5-5.1); Alkaline Phosphatase 51 U/L (38-126); Anion Gap 8 mmol/L (4-12); Aspartate Amino Transferase 21 U/L (14-36); Bilirubin,Total 1.5 mg/dL (0.2-1.3); Blood Urea Nitrogen 12 mg/dL (7-17); Calcium 9.2 mg/dL (8.4-10.2); Carbon Dioxide 27 mmol/L (22-30); Chloride 103 mmol/L (98-107); Estimated CRCL calculation 73 ml/min; Estimated Glomerular Filt Rate > 60; Glucose 100 mg/dL (65-110); Potassium 4.4 mmol/L (3.4-5.0); Sodium 138 mmol/L (137-145)
[2024-09-01] MEDS: ACETAMINOPHEN 500 MG TABLET 1000 MG PO (10:35)
[2024-09-01] MEDS: FLUCONAZOLE 150 MG TABLET PO (10:35)
== END 2024-09-01 11:09 | disposition home or self-care (01) ==
PROVIDERS: Emergency Provider Physician Assistant; PCP Internal Medicine
DX: M54.50 Low back pain, unspecified (principal); N28.9 Disorder of kidney and ureter, unspecified; I10 Essential (primary) hypertension; J45.909 Unspecified asthma, uncomplicated; K58.9 Irritable bowel syndrome, unspecified; M81.0 Age-related osteoporosis without current pathological fracture; M19.90 Unspecified osteoarthritis, unspecified site; Z86.2 Personal history of diseases of the blood and blood-forming organs and certain disorders involving the immune mechanism; Z90.49 Acquired absence of other specified parts of digestive tract; Z90.710 Acquired absence of both cervix and uterus
CPT/HCPCS: 36415; 74176; 80053; 81003; 85025; 99284; A9270